=== PATIENT | male | born 1950 | race Caucasian/White ===

== ENCOUNTER 2017-10-27 17:54 | Emergency (ER) | payer OTHER, MEDICARE, SELFPAY ==
[2017-10-27 17:56] VITALS: BP 150/83; PULSE 79; RESP 18; TEMP 36.5; O2SAT 97; BMI 25.4
[2017-10-27] MEDS: HYDROcodone Bitartrate/Apap 5/325 Tablet PO (18:12)
--- NOTE | 2017-10-27 18:15 | ED.DCSUM_ITS ---
- ER Visit Summary Date of Service: 10/27/17 Chief Complaint: Left rib pain History of Present Illness: The patient is a 67 M who slipped on some ice this morning and fell onto his left side. He did not hit his head or have LOC. He has pain in the left ribs. Is worse with movement and deep breathing. He took nothing for it at home. He has a history of coronary disease and 2 heart attacks in the past. Physical Examination: Vital signs reviewed. HEENT exam unremarkable. Heart is regular rate and rhythm without murmurs. Lungs are clear to auscultation. He does have left lower chest wall tenderness to palpation. abdomen is soft and nontender. Extremities reveal no edema. Skin exam normal. Neurologic exam normal. Test Results: Left rib x-ray reveals no fractures Emergency Department Course and Treatment: Patient was given Dupont Treatment Plan: Patient will be discharged with a short course of Dupont. He was counseled on taking deep breaths at home. He will ice the area. Follow-up with PCP Disposition: Discharge Impression: Left rib contusion This note was generated with [employer] dictation software. It may contain incorrect words, spelling, and punctuation that were not noted in review of the chart prior to signing ED Disposition - Plan for ED Patient: Chief Complaint: Fall Referrals: Abdulkadir Ladd MD [STAFF PHYSICIAN] -
--- NOTE | 2017-10-27 18:18 | RAD_ITS ---
STUDY: X-RAY - UNILATERAL RIBS ( LEFT ) WITH CHEST REASON FOR EXAM: Male, 67 years old. Trauma TECHNIQUE - RIBS: 4 view(s) of the ribs. TECHNIQUE - CHEST: Single PA view of the chest. COMPARISON: None. FINDINGS - RIBS: Normal visualized ribs without a demonstrated fracture. FINDINGS - CHEST: The lungs are clear and expanded. There is no demonstrated pleural abnormality. Normal size heart. Normal mediastinum and silke. Normal visualized pulmonary arteries. There are calcified plaques of the aortic arch. There are diffuse degenerative changes of the visualized thoracic spine. Normal visualized ribs, clavicles, and shoulders. There is no demonstrated abnormality of the visualized soft tissue structures of the upper abdomen. RAD/Ribs Uni Min 3V w/PA Chest IMPRESSION: RIBS: Normal x-ray examination of the ribs. CHEST: Calcified plaques of the aortic arch. Degenerative changes of the thoracic spine. There is no evidence of hemo or pneumothorax or pulmonary contusion. Electronically Signed: Juan Jose Nunez MD at 19:17 EST , Service support ,
--- NOTE | 2017-10-27 19:25 | ED.DEP ---
ED Disposition - Plan for ED Patient: Disposition: Home or Assisted Living Chief Complaint: Fall Instructions: ED Mechanical Fall Prescriptions: Hydrocodone Bitart/Apap 5-325 [[place] 5/325] 1 - 2 tab PO Q6H PRN PRN 2 Days #8 tab PRN Reason: Pain Referrals: Abdulkadir Ladd MD [STAFF PHYSICIAN] -
== END 2017-10-27 19:45 | disposition home or self-care (01) ==
PROVIDERS: Emergency Provider Emergency Medicine
DX: S20.212A Contusion of left front wall of thorax, initial encounter (principal); W00.0XXA Fall on same level due to ice and snow, initial encounter; Y93.9 Activity, unspecified; Y92.9 Unspecified place or not applicable; I25.2 Old myocardial infarction; I10 Essential (primary) hypertension; I25.10 Atherosclerotic heart disease of native coronary artery without angina pectoris; Z79.82 Long term (current) use of aspirin; Z79.02 Long term (current) use of antithrombotics/antiplatelets; Z79.899 Other long term (current) drug therapy
CPT/HCPCS: 71101; 99283

== ENCOUNTER 2018-06-30 18:12 | Emergency (ER) | payer MEDICARE, SELFPAY ==
[2018-06-30 18:14] VITALS: BP 158/97; PULSE 124; RESP 17; TEMP 36.6; O2SAT 95; BMI 25.8
[2018-06-30 18:48] VITALS: BP 145/90; PULSE 99; RESP 16; O2SAT 98
--- NOTE | 2018-06-30 20:26 | ED.VISSUMM ---
- ER Visit Summary Date of Service: 06/30/18 Chief Complaint: No bowel movement History of Present Illness: The patient is a 67 M patient has been constipated for several days. He has had the urge to have a bowel movement for about 21 hours but is unable to pass anything. Denies any bleeding. He had this in the past but it resolved on its own. Denies abdominal pain. No fevers. No urinary symptoms. No change in his medications or diet. Does not take opioids. Physical Examination: Afebrile and vital signs unremarkable except for heart rate of 124. The patient is pacing about the room and appears uncomfortable. His abdomen is soft and nontender. Back is nontender. Skin appears normal. Rectal exam showed no blood but he does have a large fecal impaction. Test Results: None performed Emergency Department Course and Treatment: I attempted a digital disimpaction. I removed several pieces of hard stool totaling about the size of a golf ball. He subsequently received an enema. He passed a large bowel movement and had resolution of his symptoms. He was started on MiraLAX and will be discharged to follow-up with his primary doctor. Treatment Plan: As above Disposition: Discharged Impression: 1. Fecal impaction This note was generated with [employer] dictation software. It may contain incorrect words, spelling, and punctuation that were not noted in review of the chart prior to signing ED Disposition - Plan for ED Patient: Chief Complaint: Constipation [facility] [Primary Care Provider] -
--- NOTE | 2018-06-30 20:28 | ED.DEP ---
ED Disposition - Plan for ED Patient: Chief Complaint: Constipation Instructions: ED Impaction Fecal Treated Prescriptions: Polyethylene Glycol 3350 [Miralax] 17 gm PO DAILY 30 Days #30 packet [facility] [Primary Care Provider] -
[2018-06-30 20:38] VITALS: BP 121/85; PULSE 100; RESP 17
== END 2018-06-30 20:43 | disposition home or self-care (01) ==
PROVIDERS: Emergency Provider Emergency Medicine
DX: K59.00 Constipation, unspecified (principal); I10 Essential (primary) hypertension; E78.00 Pure hypercholesterolemia, unspecified; Z79.82 Long term (current) use of aspirin; Z79.02 Long term (current) use of antithrombotics/antiplatelets; Z79.899 Other long term (current) drug therapy
CPT/HCPCS: 99284

== ENCOUNTER 2022-08-08 01:54 | Emergency (ER) | payer OTHER, SELFPAY ==
[2022-08-08] VITALS (7 sets, daily range): BP systolic 138–182; BP diastolic 85–104; PULSE 85–96; RESP 14–18; TEMP 36.5–37; O2SAT 96–100; BMI 24.0
--- NOTE | 2022-08-08 02:19 | ED.VIS.GI ---
HPI HPI - GI History of Present Illness Chief Complaint: Constipation Informant: patient Abdominal Pain/Flank Pain Onset: Hours Context: Gradual Onset Timing: Continuous Quality: Aching Location: - (Suprapubic/lower abdomen) Current Severity: Mild Maximum Severity: Mild Worsened by: Nothing Relieved by: Nothing Nausea/Vomiting/Emesis GI Symptom: Negative for Nausea or Vomiting Diarrhea/Melena/Hematochezia GI Symptom: Negative for Diarrhea, Melena or Hematochezia Narrative Narrative: Patient states for the last several hours he has been constipated, he feels like he has a large ball of solid stool that he is unable to pass and requesting assistance. He has some mild lower abdominal discomfort that started after this, no nausea or vomiting. No history of any abdominal surgeries. Has had this happen before. States he feels he is dependent on MiraLAX because of chronic constipation but he ran out 4 days ago. [facility] Medical History Diabetes Hyperlipidemia Hypertension Myocardial infarct Home Medications Adderall 10 mg Tablet 10 mg PO TID 10/27/17 [History Last Taken Unknown] aspirin 325 mg tablet,delayed release 325 mg PO DAILY 10/27/17 [History Last Taken Unknown] clopidogrel 75 mg tablet 75 mg PO DAILY 10/27/17 [History Last Taken Unknown] hydrocodone-acetaminophen 5-325mg 5mg-325mg 1 - 2 tab PO Q6H PRN PRN Pain 2 days #8 tabs 10/27/17 [Rx Last Taken Unknown] metoprolol tartrate 25 mg tablet 12.5 mg PO BID 10/27/17 [History Last Taken Unknown] simvastatin 80 mg tablet (Zocor) 80 mg PO QHS 10/27/17 [History Last Taken Unknown] venlafaxine 75 mg tablet 75 mg PO BID 10/27/17 [History Last Taken Unknown] Allergy/AdvReac Type Severity Reaction Status Date / Time No Known Allergies Allergy Verified 06/30/18 18:13 Surgical History (Updated 08/08/22 @ 02:00 by Dudley Shetty) History of coronary artery stent placement Social History Smoking Status: Current some day smoker tobacco type: cigars ROS ROS ED Constitutional Constitutional ED: Denies chills or fever(s) Eyes Eyes: Denies change in vision or diplopia ENT ENT ED: Denies rhinorrhea or sore throat Cardiovascular Cardiovascular: Denies chest pain or palpitations Respiratory/Chest Respiratory/Chest: Denies cough or dyspnea Gastrointestinal Gastrointestinal: Reports abdominal pain and constipation; Denies diarrhea, nausea or vomiting Genitourinary Genitourinary ED: Denies dysuria or hematuria Musculoskeletal Musculoskeletal: Denies back pain or neck pain Integumentary Denies abscess or rash Neurologic Neurologic: Denies headache(s), paresthesias or weakness Psychiatric Psychiatric: Denies anxiety or suicidal thoughts EXAM Physical Exam Const Vital Signs: 08/08/22 01:55 08/08/22 05:54 08/08/22 06:26 Temperature 97.7 F L 98.6 F Temperature Source Temporal Pulse Rate 96 89 Pulse Rate [1 (Initial Baseline)] Pulse Rate [2] Respiratory Rate 18 15 Respiratory Rate [1 (Initial Baseline)] Respiratory Rate [2] Blood Pressure 171/89 H 138/104 H Blood Pressure [1 (Initial Baseline)] Blood Pressure [2] Blood Pressure Mean 116 Pulse Ox 96 98 Oxygen Delivery Method Room Air Room Air Room Air Oxygen Delivery Method [1 (Initial Baseline)] Oxygen Delivery Method [2] Oxygen Flow Rate (L/min) Oxygen Flow Rate (L/min) [2] 08/08/22 06:24 08/08/22 06:27 08/08/22 06:30 Temperature Temperature Source Pulse Rate Pulse Rate [1 (Initial Baseline)] Pulse Rate [2] Respiratory Rate Respiratory Rate [1 (Initial Baseline)] Respiratory Rate [2] Blood Pressure Blood Pressure [1 (Initial Baseline)] Blood Pressure [2] Blood Pressure Mean Pulse Ox Oxygen Delivery Method Room Air Nasal Cannula Room Air Oxygen Delivery Method [1 (Initial Baseline)] Oxygen Delivery Method [2] Oxygen Flow Rate (L/min) 2 Oxygen Flow Rate (L/min) [2] 08/08/22 06:21 08/08/22 06:39 Temperature Temperature Source Pulse Rate 85 Pulse Rate [1 (Initial Baseline)] 89 Pulse Rate [2] 93 Respiratory Rate 16 Respiratory Rate [1 (Initial Baseline)] 15 Respiratory Rate [2] 14 Blood Pressure 149/86 H Blood Pressure [1 (Initial Baseline)] 138/104 H Blood Pressure [2] 182/93 H Blood Pressure Mean 107 Pulse Ox 100 Oxygen Delivery Method Room Air Oxygen Delivery Method [1 (Initial Baseline)] Room Air Oxygen Delivery Method [2] Room Air Oxygen Flow Rate (L/min) Oxygen Flow Rate (L/min) [2] 2 Positive well nourished and well developed General Appearance ED: well developed and NAD HEENT Reports moist mucous membranes normocephalic and atraumatic Eyes PERRL and EOMs intact bilaterally Neck full ROM and supple Resp normal respiratory effort and clear to auscultation bilaterally Cardio regular rate, regular rhythm and no murmurs GI non-tender and non-distended GI Narrative: On rectal, there is no perianal abnormality or tenderness. There is no melena or bleeding. Rectal exam is uncomfortable due to a large solid stool ball, which I was able to sweep around but not manually removed. Auscultation: normoactive bowel sounds Palpation: soft Back/Spine no CVA tenderness General Back: other FROM Extremity normal to inspection General Extremety ED: Negative for edema, pulses abnormal or tenderness General Extremity: Negative for edema or pulses abnormal Neuro oriented x3, CN's II-XII intact bilaterally and no sensory deficits noted Sensorium / Orientation: awake and alert Motor Exam: strength 5/5 throughout Skin no rashes or lesions noted and no wounds MDM MDM MDM Narrative Medical decision making narrative: Rectal exam, patient has large fecal impaction that feels firm but I could sweep my finger around it to loosen it. Unable to remove any because the patient did not tolerate this well and withdrew. He tried to have a bowel movement but was unable to pass it. Therefore we tried a fleets enema, mostly because I did not feel there was a lot of room for a large amount of fluid there, however this did not allow the patient to be able to pass the impaction either so then we tried a soapsuds enema. Also did not allow the patient to pass it. Repeated rectal exam, is not tolerating well and asking for procedural sedation. I discussed with him at length that typically we do not sedate people for rectal exam under anesthesia for this reason because of the risk-benefit profile. He understands the risk and wants us to provide procedural sedation for manual disimpaction so that he feels better. We discussed alternatives such as GoLytely, MiraLAX, other laxative options, and he declines those at this time. See the procedure note. He was sedated briefly with etomidate 10 mg, I manually disimpacted him to the best of my ability without causing damage, he awoke feeling better and in no pain, he had no bleeding, and he had no complications with any of this. He will get more MiraLAX and he is comfortable being discharged home. He was monitored until he was fully recovered. Procedures Procedural Sedation 1 (Initial Baseline): Consent Signed: Yes Any Problems With Anesthesia: No You/Your family experience fever (hyperthermia) w/anesthesia: No Sedation medication: Etomidate Dose: 10 Route: IV Mallampati Score: Class II ASA Classification: II Comment:: Patient on monitor with IV fluids, oxygen per nasal cannula, and end-tidal CO2 monitoring throughout procedure. Adequate sedation obtained, tolerated well with no complications and recovered uneventfully. No telemetry events or hypoxemia. Other Procedures Procedure(s): Rectal exam/manual disimpaction under anesthesia: After sedated as above, manually removed as much solid stool as I felt would be productive, which was basically using several fingers 3 different times under anesthesia. No bleeding. All stool brown, no complications. Discharge Plan Triage Chief Complaint: Constipation ED Provider: Hansel Ware Dx/Rx/DC Orders Clinical Impression: Constipation, Fecal impaction in rectum Instructions: ED Fecal Impaction, Treated Prescriptions: No Action Adderall 10 mg Tablet 10 mg PO TID venlafaxine 75 MG tablet 75 mg PO BID clopidogrel 75 MG tablet 75 mg PO DAILY simvastatin [Zocor] 80 MG tablet 80 mg PO QHS aspirin 325 MG Tablet.Dr 325 mg PO DAILY metoprolol tartrate 25 MG tablet 12.5 mg PO BID hydrocodone-acetaminophen 1 TABLET tablet 1 - 2 tab PO Q6H PRN PRN (Reason: Pain) 2 Days Qty: 8 0RF [facility] [Primary Care Provider] - As Needed Disposition Disposition: Home, Self Care
[2022-08-08] MEDS: Fleet Enema 1 ML RC (03:07)
--- NOTE | 2022-08-08 05:41 | ED.RN ---
Pt retained entire bottle of fleet enema after x3 attempts, unable to hold fluid. Pt denies any large amount of feces. Pt unable to retain large amounts of soap suds enema, had a total of 1000 cc of fluid after x2 attempts.
[2022-08-08] MEDS: Etomidate 20 MG/10 ML Vial 10 MG IV (06:38)
--- NOTE | 2022-08-08 06:45 | ED.RN ---
Pt is A&O x3 @ 9633. Alert and talking post sedation.
== END 2022-08-08 07:10 | disposition home or self-care (01) ==
LOC: ED 02:45
PROVIDERS: Emergency Provider Emergency Medicine; Visit Provider Emergency Medicine
DX: K56.41 Fecal impaction (principal); E11.9 Type 2 diabetes mellitus without complications; E78.5 Hyperlipidemia, unspecified; I10 Essential (primary) hypertension; F17.290 Nicotine dependence, other tobacco product, uncomplicated
CPT/HCPCS: 45915; 96374; 99285; J7030; A4216

== ENCOUNTER 2023-05-04 06:31 | Emergency (ER) | payer OTHER, SELFPAY ==
[2023-05-04 06:33] VITALS: BP 190/96; PULSE 71; RESP 18; TEMP 35.7; O2SAT 99; BMI 23.6
--- NOTE | 2023-05-04 06:41 | CT_ITS ---
STUDY: CT ABDOMEN AND PELVIS WITH CONTRAST REASON FOR EXAM: Male, 72 years old patient with left lower quadrant ( LLQ) abdominal pain. RADIATION DOSAGE (If Supplied By Facility): CTDIvol = ( 14.87 ) mGy, DLP = ( 725.23 ) mGycm TECHNIQUE: Transaxial images were obtained from the dome of the diaphragm to the symphysis pubis without oral contrast. 100 ml of IV Isovue-370 was administered. Sagittal and coronal images were reconstructed. Individualized dose optimization techniques were used for this CT. COMPARISON: Prior comparison studies are not available for review at this time. FINDINGS: The visualized lung bases are unremarkable. The visualized portions of the heart are within normal limits. There are coronary artery calcifications. Normal liver. Normal gallbladder and extrahepatic biliary system. Normal spleen. Normal pancreas. Normal bilateral adrenal glands. Normal right kidney. Mild left-sided hydronephrosis without obvious hydroureter or radiopaque ureteral calculus. Normal visualized stomach. There is no obvious dilated bowel, ascites or pneumoperitoneum. Small bowel has a grossly normal appearance. There is stool visible throughout the colon with scattered diverticula. There is nonspecific thickening of the joseph of the distal sigmoid colon and rectum suggesting possible infectious or inflammatory proctitis. There is non-visualization of the appendix. There is diffuse atherosclerotic calcification of the abdominal aorta, without a demonstrated aneurysm. Normal inferior vena cava. Normal retroperitoneum. Normal urinary bladder. There is enlargement of the prostate gland. Normal abdominal wall. There are diffuse degenerative changes of the visualized spine. CT/Abdomen/Pelvis W IV Cont ONLY IMPRESSION: 1. Mild left-sided hydronephrosis may be secondary to the enlargement of the prostate versus sequela of previous obstructive uropathy.. No ureteral calculus is visualized. 2. Questionable acute infectious or inflammatory proctitis. Electronically Signed: Roma Ladd MD at 7:53 EDT ,
--- NOTE | 2023-05-04 06:41 | ED.VIS.GI ---
HPI HPI - GI History of Present Illness Chief Complaint: Flank Pain Informant: patient Abdominal Pain/Flank Pain Onset: Hours Context: Gradual Onset Timing: Continuous Quality: Aching Location: LLQ and Left Flank Current Severity: Severe Maximum Severity: Severe Worsened by: Nothing Relieved by: Nothing Nausea/Vomiting/Emesis GI Symptom: Negative for Nausea or Vomiting Diarrhea/Melena/Hematochezia GI Symptom: Positive for Diarrhea; Negative for Melena or Hematochezia Onset: Weeks (Several, off-and-on) Associated Symptoms Associated Symptoms: Negative for Dysuria, Frequency, Hematuria or Urgency Narrative Narrative: Patient has been having right-sided abdominal pain off and on for several weeks, but now he states all night it has been in the left side which is new. No history of any abdominal surgeries. He has had some diarrhea off-and-on in the last several weeks but no blood or melena. Pain radiates into his left lower back. No urinary symptoms, fevers, nausea, or vomiting. Food has not necessarily seemed to make any difference. [facility] Medical History Diabetes Hyperlipidemia Hypertension Myocardial infarct Home Medications aspirin 325 mg tablet,delayed release 81 mg PO DAILY 10/27/17 [History Last Taken Unknown] metoprolol tartrate 25 mg tablet 25 mg PO BID 10/27/17 [History Last Taken Unknown] simvastatin 80 mg tablet (Zocor) 40 mg PO QHS 10/27/17 [History Last Taken Unknown] venlafaxine 75 mg tablet 75 mg PO BID 10/27/17 [History Last Taken Unknown] ciprofloxacin HCl 500 mg tablet 500 mg PO BID #14 TABLETS 05/04/23 [Rx Last Taken Unknown] dulaglutide 0.75 mg/0.5 mL subcutaneous pen injector 0.75 mg subcut QWEEK 05/04/23 [History Last Taken Unknown] glipizide 5 mg tablet 5 mg PO DAILY 05/04/23 [History Last Taken Unknown] metformin 1,000 mg tablet 1,000 mg PO BID 05/04/23 [History Last Taken Unknown] oxycodone-acetaminophen 5 mg-325 mg tablet 1 tab PO Q4H PRN Pain 3 days #18 TABLETS 05/04/23 [Rx Last Taken Unknown] Allergy/AdvReac Type Severity Reaction Status Date / Time No Known Allergies Allergy Verified 05/04/23 06:37 Surgical History History of coronary artery stent placement Social History Smoking Status: Current some day smoker tobacco type: cigars ROS ROS ED Constitutional Constitutional ED: Denies chills or fever(s) Eyes Eyes: Denies change in vision or diplopia ENT ENT ED: Denies rhinorrhea or sore throat Cardiovascular Cardiovascular: Denies chest pain or palpitations Respiratory/Chest Respiratory/Chest: Denies cough or dyspnea Gastrointestinal Gastrointestinal: Reports abdominal pain and diarrhea; Denies melena, nausea or vomiting Genitourinary Genitourinary ED: Denies dysuria or hematuria Musculoskeletal Musculoskeletal: Reports back pain; Denies neck pain Integumentary Denies abscess or rash Neurologic Neurologic: Denies headache(s), paresthesias or weakness Psychiatric Psychiatric: Denies anxiety or suicidal thoughts EXAM Physical Exam Const Vital Signs: 05/04/23 06:33 Temperature 96.3 F L Temperature Source Temporal Pulse Rate 71 Respiratory Rate 18 Blood Pressure 190/96 H Blood Pressure Mean 127 Pulse Ox 99 Oxygen Delivery Method Room Air Positive well nourished and well developed General Appearance ED: well developed and NAD HEENT Reports moist mucous membranes normocephalic and atraumatic Eyes PERRL and EOMs intact bilaterally Neck full ROM and supple Resp normal respiratory effort and clear to auscultation bilaterally Cardio regular rate, regular rhythm and no murmurs Rate: Negative for tachycardic GI non-distended GI Narrative: Patient has moderate-severe tenderness in the left lower quadrant without guarding or rebound, no pulsatile mass, no other areas of abdominal tenderness. No Lares sign. Auscultation: normoactive bowel sounds Palpation: soft Back/Spine no CVA tenderness General Back: other FROM Extremity normal to inspection General Extremety ED: Negative for edema, pulses abnormal or tenderness General Extremity: Negative for edema or pulses abnormal Neuro oriented x3, CN's II-XII intact bilaterally and no sensory deficits noted Sensorium / Orientation: awake and alert Motor Exam: strength 5/5 throughout Skin no rashes or lesions noted and no wounds MDM MDM MDM Narrative Medical decision making narrative: Differential Lynette fluids urolithiasis, diverticulitis, also other unusual intestinal or genitourinary intra-abdominal issues. CT warranted, in addition to labs, pain medication, IV fluids and nausea medicine prophylactically. He required some other pain medication so I gave him Toradol and then fentanyl after that which helped more. His labs are normal, urine shows signs of infection so I sent this for culture given positive nitrite and some pyuria. I reviewed the CT images and report which I initially did not agree with, I see a small left ureteral stone with mild hydroureter and hydronephrosis, no signs of diverticulitis. Radiology interpreted this with left-sided hydronephrosis but no ureteral calculus visualized, I igor her attention to image #66 of the axial sequence, and she agrees this is a stone, and added an addendum. He was treated with a dose of IV Rocephin and will be placed on Cipro, he is feeling better, clinically and hemodynamically stable, not septic, and comfortable with following up as an outpatient with a prescription for pain medications and antibiotic. Lab Data Attestation: I reviewed the patient's lab results. Labs: Laboratory Results - last 24 hr 05/04/23 05/04/23 06:50 07:03 WBC 8.0 RBC 5.14 Hgb 15.3 Hct 44.0 MCV 85.6 MCH 29.8 MCHC 34.8 RDW Std Deviation 39.0 RDW Coeff of Keshia 12.6 Plt Count 250 MPV 8.9 Immature Gran % (Auto) 0.300 Neut % (Auto) 56.1 Lymph % (Auto) 29.8 [place] % (Auto) 8.4 Eos % (Auto) 4.6 Baso % (Auto) 0.8 Absolute Neuts (auto) 4.5 Absolute Lymphs (auto) 2.38 Nucleated RBC % 0 Sodium 137 Potassium 3.9 Chloride 103 Carbon Dioxide 24.0 Anion Gap 10 BUN 18 Creatinine 1.15 Estim Creat Clear Calc 58.06 Est GFR (MDRD) Af Amer 80 Est GFR (MDRD) Non-Af 66 BUN/Creatinine Ratio 15.7 Glucose 182 H Calcium 9.8 Urine Color Yellow Urine Clarity Cloudy Urine pH 5.0 Ur Specific [place] 1.025 Urine Protein 100 H Urine Glucose (UA) 100 H Urine Ketones 15 H Urine Occult Blood 250 H Urine Nitrite Positive H Urine Bilirubin 1 H Urine Urobilinogen 4 H Ur Leukocyte Esterase 100 H Urine RBC > 100 SEEN Urine WBC 10-25 SEEN Ur Squamous Epith Cells 0 SEEN Urine Bacteria 3+ Urine Mucus 0 SEEN Radiography Diagnostic Testing: Clinical Impression(s) from Imaging Studies Abdomen/Pelvis CT 05/04/23 06:41 IMPRESSION: 1. Mild left-sided hydronephrosis may be secondary to the enlargement of the prostate versus sequela of previous obstructive uropathy.. No ureteral calculus is visualized. 2. Questionable acute infectious or inflammatory proctitis. Electronically Signed: Roma Ladd MD at 7:53 EDT Reading Location ID and State: [facility] / [place] , Service support , Management Discussion w/another healthcare provider: Radiologist Discharge Plan Triage Chief Complaint: Flank Pain ED Provider: Hansel Ware Dx/Rx/DC Orders Clinical Impression: Ureteral colic, Urolithiasis, Acute UTI Instructions: ED Kidney Stone w/ Colic Prescriptions: New ciprofloxacin HCl [ciprofloxacin HCl] 500 mg tablet 500 mg PO BID Qty: 14 0RF oxycodone-acetaminophen [oxycodone-acetaminophen] 5-325 mg tablet 1 tab PO Q4H PRN (Reason: Pain) 3 Days Qty: 18 0RF No Action venlafaxine 75 MG tablet 75 mg PO BID simvastatin [Zocor] 80 MG tablet 40 mg PO QHS aspirin 325 MG tablet,delayed release (DR/EC) 81 mg PO DAILY metoprolol tartrate 25 MG tablet 25 mg PO BID metformin 1,000 mg tablet 1,000 mg PO BID glipizide 5 mg tablet 5 mg PO DAILY dulaglutide 0.75 mg/0.5 mL pen injector 0.75 mg subcut QWEEK [facility] Provider[facility] Referrals: Yaya Smith MD [Med Staff - Active Staff] - 1 Week if not improving [facility] [Primary Care Provider] - Disposition Disposition: Home, Self Care
[2023-05-04 07:02] LABS: Absolute Lymphocyte Count 2.38 X10^3/uL (0.83-4.51); Absolute Neutrophil Count 4.5 X10^3/uL (2.0-7.7); Basophil# 0.06 X10^3/uL; Basophil% 0.8 % (0-1); Eosinophil# 0.37 X10^3/uL; Eosinophils% 4.6 % (0-5); Hemoglobin 15.3 g/dL (13.0-16.5); Lymphocyte # 2.38 X10^3/ul (0.83-4.51); Lymphocyte % 29.8 % (19-41); Mean Corp Hgb Conc 34.8 g/dL (32-36); Mean Corpuscular Hgb 29.8 pg (27.0-32.0); Mean Corpuscular Volume 85.6 fL (80-94); Mean Platelet Vol. 8.9 fl (6.2-12.0); Monocyte# 0.67 X10^3/uL; Monocyte% 8.4 % (0-10); NRBC Flagged by Analyzer 0 % (0-5); Neutrophil % 56.1 % (47-70); Platelet Count 250 K/mm3 (150-450); RBC Distribution Width CV 12.6 % (11.6-14.6); Red Blood Count 5.14 M/mm3 (4.6-6.2)
[2023-05-04] MEDS: Morphine 4 MG/ML Syringe IV (07:03)
[2023-05-04] MEDS: 0.9% Normal Saline (1000mL) 1,000 ML 125 ML IV (07:03)
[2023-05-04] MEDS: Ondansetron 4 MG/2 ML Vial IV (07:03)
[2023-05-04 07:07] LABS: Mucous, Urine 0 SEEN /hpf (<or=2+); Squamous Epithelial Cells - UA 0 SEEN /hpf (0-5)
[2023-05-04 07:16] LABS: Anion Gap 10 (5-15); BUN 18 mg/dL (7-18); BUN/Creat Ratio 15.7 RATIO (10-20); Calcium,Total 9.8 mg/dL (8.5-10.1); Chloride 103 mmol/L (98-107); Creatinine, Serum 1.15 mg/dL (0.70-1.30); EST Glomerular Filtration Rate 66 mL/min (>60); Est Glom Filt Rate - Afr Amer 80 mL/min (>60); Estimated Creatinine Clearance 58.06 ml/min; Glucose 182 mg/dL (74-106); Potassium 3.9 mmol/L (3.5-5.1); Sodium Level 137 mmol/L (136-145)
[2023-05-04 07:19] LABS: Color, Urine Yellow (Yellow); Glucose, Dipstick 100 mg/dl (Normal); Ketone-Dipstick 15 mg/dl (Negative); Leukocyte Esterase-Dipstick 100 /ul (Negative); Nitrite-Dipstick Positive (Negative); Occult Blood-Urine 250 /ul (Negative); Protein-Dipstick 100 mg/dl (Negative); Specific Gravity, Urine 1.025 (1.002-1.030); Urine Clarity Cloudy (Clear); Urine Urobilinogen 4 mg/dl (Normal)
[2023-05-04 07:24] LABS: Urine Bilirubin Dipstick 1 mg/dL (Negative)
[2023-05-04 07:25] LABS: Bacteria 3+ /hpf (None Seen); Red Blood Cells-Urine > 100 SEEN /hpf (0-5); White Blood Cells 10-25 SEEN /hpf (0-5)
[2023-05-04] MEDS: Ketorolac 15 MG/ML Vial IV (07:43)
[2023-05-04] MEDS: fentaNYL 100 MCG/2 ML Ampul 50 MCG IV (07:55)
[2023-05-04] MEDS: Ceftriaxone 1 GM/50 ML BAG IV (07:56)
[2023-05-04 09:21] VITALS: BP 118/62; PULSE 74; RESP 16; O2SAT 99
== END 2023-05-04 09:24 | disposition home or self-care (01) ==
PROVIDERS: Emergency Provider Emergency Medicine; Visit Provider Emergency Medicine
DX: N13.6 Pyonephrosis (principal); E11.9 Type 2 diabetes mellitus without complications; N23 Unspecified renal colic; I10 Essential (primary) hypertension; E78.5 Hyperlipidemia, unspecified; I25.2 Old myocardial infarction; F17.290 Nicotine dependence, other tobacco product, uncomplicated; Z95.5 Presence of coronary angioplasty implant and graft; Z79.82 Long term (current) use of aspirin; Z79.84 Long term (current) use of oral hypoglycemic drugs; Z79.899 Other long term (current) drug therapy
CPT/HCPCS: 74177; 80048; 81001; 85025; 87086; 87088; 96361; 96365; 96366; 96375; 99284; J7030; Q9967; A4216; J2405

== ENCOUNTER 2025-04-18 08:50 | Inpatient (IN) | payer OTHER, SELFPAY ==
[2025-04-18 08:51] VITALS: BP 99/77; PULSE 109; RESP 14; TEMP 36.4; O2SAT 100; BMI 24.1
--- OUTSIDE RECORDS SUMMARY | 2025-04-18 08:54 | XMS RPT_ITS | CCD ---
Author Organization [facility] Care Team Providers Care Insurance Customer Service Specialist Name Role Phone Dr. Hansel Ware Attending [facility], [place] Primary Care [facility], [facility] Primary Care Provider GERTRUDIS AMBROSIO Referring Unavailable GERTRUDIS AMBROSIO Attending Unavailable GERTRUDIS AMBROSIO Attending Unavailable Medications Current Medications Medication Drug Class(es) Dates Sig (Normalized) Sig (Original) simvastatin 80 mg oral tablet (2 sources) HMG-CoA Reductase Inhibitor Start: 10-27-2017 Simvastatin (Zocor) 80 MG tablet Active 40 MG PO AT BEDTIME October 27, 2017 1:00am Start: 10-27-2017 take 1 tablet by charlie th at bedtime Simvastatin (Zocor) 80 MG tablet Active 80 MG PO AT BEDTIME October 27, 2017 12:00am Completed/Discontinued Medications Medication Drug Class(es) Dates Sig (Normalized) Sig (Original) acetaminophen 325 mg / HYDROcodone bitartrate 5 mg oral tablet (2 sources) Opioid Agonist Start: 10-27-2017 End: 05-04-2023 take 1 tablet by mouth every six hours as needed Hydrocodone-Acetami nophen Discontinued 1 - 2 TABLET PO EVERY 6 HOURS NEEDED 8 2 October 27, 2017 8:25pm May 04, 2023 6:39am acetaminophen 325 mg / oxyCODONE hydrochloride 5 mg oral tablet (4 sources) Opioid Agonist Start: 05-04-2023 oxyCODONE-acetamino phen (PERCOCET) 5-325 mg tablet Take by mouth. 0 05/04/2023 Active Start: 05-04-2023 take 1 tablet by charlie th every four hours Oxycodone-Acetaminophen Active 1 TABLET PO Q4H 18 3 May 04, 2023 Comment on above: Take by mouth. alogliptin 25 mg oral tablet (3 sources) take 1 tablet by mouth once daily alogliptin (NESINA) 25 mg tab Take 25 mg by mouth once daily. 0 Active Comment on above: Take 25 mg by mouth once daily. Amphetamine / Dextroamphetamine (2 sources) Central Nervous System Stimulant Start: 10-28-19 18 End: 05-04-20 take 1 tablet by mouth three times daily Adderall 10 mg Tablet Discontinued 10 MG PO THREE TIMES A DAY October 27, 2017 1:00am May 04, 2023 6:37am Start: 10-27-2017 take 1 tablet by charlie three times daily Adderall 10 mg Tablet Active 10 MG PO THREE TIMES A DAY October 27, 2017 12:00am ascorbic acid 4700 mg / polyethylene glycol 3350 058528 mg / potassium chloride 1015 mg / sodium ascorbate 5900 mg / sodium chloride 2690 mg / sodium sulfate 7500 mg powder for oral solution (3 sources) Osmotic Laxative, Vitamin C Start: 07-26-2023 PEG 3350-Electrolyte -Vit C (MOVIPREP) 100-7.5-2.691 gram Start: 07-26-2023 PEG 3350-Elect rolyte-Vit C (MOVIPREP) 100-7.5-2.691 gram TAKE BEFORE PROCEDURE BY MOUTH ONE TIME DIRECTED ON GI BOWEL PREP INSTRUCTION SHEET 0 07/26/2023 Active Comment on above: TAKE BEFORE PROCEDUR E BY MOUTH ONE TIME DIRECTED ON GI BOWEL PREP INSTRUCTION SHEET Aspirin (5 sources) Platelet Aggregation Inhibitor, Nonsteroidal Anti-inflammatory Drug Start: 07-26-2023 aspirin 81 mg cap 81 mg. 0 07/26/2023 Active Start: 10-27-2017 take 81 mg by mouth once daily Aspirin Active 81 MG PO DAILY October 27, 2017 1:00am Start: 10-27-2017 take 325 mg by mouth once ashtyn y Aspirin Active 325 MG PO DAILY October 27, 2017 12:00am Comment on above: 81 mg. ciprofloxacin 500 mg oral tablet (4 sources) Quinolone Antimicrobial Start: 05-04-20 ciprofloxacin HCl (CIPRO) 500 mg tablet Take by mouth. 0 05/04/2023 Active Comment on above: Take by mouth. clopidogrel 75 mg oral tablet (5 sources) P2Y12 Platelet Inhibitor Start: 10-28-19 18 End: 05-04-20 take 75 mg by mouth once daily Clopidogrel Discontinued 75 MG PO DAILY October 27, 2017 1:00am May 04, 2023 6:41am Comment on above: Take 75 mg by mouth once daily. 0.5 ml dulaglutide 1.5 mg/ml auto-injector (4 sources) GLP-1 Receptor Agonist Start: 05-04-20 dulaglutide (TRULICITY) 0.75 mg/0.5 mL pen injector INJECT CONTENT OF 1 PEN SUBCUTANEOUSLY EVERY WEEK : KEEP REFRIGERATED, HOWEVER, MAY BE KEPT AT ROOM TEMPERATURE FOR UP TO 14 DAYS 0 05/04/2023 Active Start: 05-04-2023 Dulaglutide Ac tive 0.75 MG SC EVERY WEEK May 04, 2023 12:00am Comment on above: INJECT CONTENT OF 1 PEN SUBCUTANEOUSLY EVERY WEEK : KEEP REFRIGERATED, HOWEVER, MAY BE KEPT AT ROOM TEMPERATURE FOR UP TO 14 DAYS glipiZIDE 5 mg oral tablet (4 sources) Sulfonylurea Start: take 1 tablet by mouth once daily before breakfast glipiZIDE (GLUCOTROL) 5 mg tablet Take 1 tablet by mouth daily before breakfast. 0 05/04/2023 Active Comment on above: Take 1 tablet by charlie th daily before breakfast. glucose 4000 mg chewable tablet (3 sources) Start: glucose 4 gram chewable tablet 16 g. 0 10/18/2022 Active Comment on above: 16 g. insulin glargine-yfgn (SEMGLEE) 100 unit/mL (3 mL) insulin pen (3 sources) Start: insulin glargine-yfgn (SEMGLEE) 100 unit/mL (3 mL) insulin pen INJECT 15 UNITS SUBCUTANEOUSLY AT BEDTIME FOR DIABETES (DISCARD PEN 28 DAYS AFTER FIRST USE) DOSE CHANGE 0 07/26/2023 Active Comment on above: INJECT 15 UNITS SUBC UTANEOUSLY AT BEDTIME FOR DIABETES (DISCARD PEN 28 DAYS AFTER FIRST USE) DOSE CHANGE metFORMIN hydrochloride 1000 mg oral tablet (4 sources) Biguanide Start: metFORMIN (GLUCOPHAGE) 1,000 mg tablet 1,000 mg. 0 05/04/2023 Active Comment on above: 1,000 mg. 24 hr metoprolol succinate 25 mg extended release oral tablet (6 sources) beta-Adrenergic Dilcia Start: take 1 tablet by mouth once daily metoprolol succinate ER (TOPROL XL) 25 mg 24 hr tablet Take 1 tablet by mouth once daily. 0 07/26/2023 Active Start: 10-27-2017 End: 10-09-2023 metoprolol tartrate, short a cting, (LOPRESSOR) 25 mg tablet Take by mouth. 0 10/27/2017 10/09/2023 Discontinued (Duplicate Entry) Start: 10-27-2017 take 12.5 mg by mout h twice daily Metoprolol Tartrate Active 12.5 MG PO TWICE A DAY October 27, 2017 12:00am Comment on above: Take 1 tablet by charlie th once daily. Take by mouth. polyethylene glycol 3350 30538 mg powder for oral solution (2 sources) Osmotic Laxative Start: 06-30-20 18 End: 07-30-20 18 take 17 g by mouth once daily Polyethylene Glycol 3350 Discontinued 17 GM PO DAILY June 30, 2018 12:00am July 30, 2018 1:07am rosuvastatin calcium 40 mg oral tablet (3 sources) HMG-CoA Reductase Inhibitor Start: 07-26-20 23 rosuvastatin (CRESTOR) 40 mg tablet 40 mg. 0 07/26/2023 Active Comment on above: 40 mg. venlafaxine 75 mg oral tablet (5 sources) Serotonin and Norepinephrine Reuptake Inhibitor Start: 10-28-19 18 venlafaxine (EFFEXOR) 75 mg tablet 150 mg. 0 10/27/2017 Active Start: 10-27-2017 take 75 mg by mouth twice ashtyn y Venlafaxine Active 75 MG PO TWICE A DAY October 27, 2017 1:00am Comment on above: 150 mg. Problems Problem Classification Problem Date Documented Da te Episodic/Chronic Calculus of urinary tract (2 sources) Ureteric colic; Translations: [Unspecified renal colic] 05-04-2023 Episodic Intestinal obstruction without hernia (3 sources) Fecal impaction; Translations: [Fecal impaction of rectum] Onset: 08-14-2022 08-16-2022 Episodic Other aftercare (5 sources) Patient encounter status; Translations: [boarder hand (current) use of antithrombotics/a ntiplatelets] Onset: 10-26-2023 10-12-2023 Episodic Other gastrointestinal disorders (2 sources) Constipation; Translations: [Constipation, unspecified] 08-16-2022 Episodic Other screening for suspected conditions (not mental disorders or infectious disease) (1 source) Encounter for screening for malignant neoplasm of colon; Translations: [Screening for colon cancer] Onset: 10-26-2023 Episodic Urinary tract infections (1 source) Acute urinary tract infection; Translations: [Urinary tract infection, site not specified] 05-04-2023 Episodic Results Test Name Value Interpretation Reference Range Facility HISTORY PHYSICALon HISTORY PHYSICAL HNO ID: [id number] Author: GERTRUDIS AMBROSIO MD Service: General Surgery Author Type: Physician Type: H&P Filed: 10/26/2023 09:20 Note Text: HISTORY AND PHYSICAL Will Marr 1950 REFERRING PHYSICIAN: [facility] CHIEF COMPLAINT: Consult (colonoscopy) HPI: The patient is a 73 year old male referred for endoscopy. Will states that he had a colonoscopy greater than 10 years ago. He presents for screening for colon cancer via colonoscopy. He does note occasional watery stools, about one episode per week. He states that his bowel movements are all over the chart - that is - many different colors. He denies blood in his stools. He had a bout of constipation in June but this resolved, he treated with miralax. He notes no colon cancer in his family He is [place] by the [place] - referral [place] [id number] for colonoscopy for screening for colon cancer He has CAD with coronary artery stent last placed in 2004 - on aspirin and plavix PAST MEDICAL HISTORY PAST MEDICAL HISTORY Diagnosis Date Constipation Diabetes mellitus (HCC) Essential hypertension Hyperlipemia Myocardial infarct (HCC) Nephrolithiasis Recurrent UTI Urinary calculus PAST SURGICAL HISTORY PAST SURGICAL HISTORY Procedure Laterality Date PAST SURGICAL HISTORY OF coronary artery stent placed REMV CATARACT EXTRACAP,INSERT LENS CURRENT MEDICATIONS Current Outpatient Medications Medication Sig glucose 4 gram chewable tablet 16 g. insulin glargine-yfgn (SEMGLEE) 100 unit/mL (3 mL) insulin pen INJECT 15 UNITS SUBCUTANEOUSLY AT BEDTIME FOR DIABETES (DISCARD PEN 28 DAYS AFTER FIRST USE) DOSE CHANGE rosuvastatin (CRESTOR) 40 mg tablet 40 mg. alogliptin (NESINA) 25 mg tab Take 25 mg by mouth once daily. clopidogrel (PLAVIX) 75 mg tablet Take 75 mg by mouth once daily. aspirin 81 mg cap 81 mg. dulaglutide (TRULICITY) 0.75 mg/0.5 mL pen injector INJECT CONTENT OF 1 PEN SUBCUTANEOUSLY EVERY WEEK : KEEP REFRIGERATED, HOWEVER, MAY BE KEPT AT ROOM TEMPERATURE FOR UP TO 14 DAYS metFORMIN (GLUCOPHAGE) 1,000 mg tablet 1,000 mg. metoprolol succinate ER (TOPROL XL) 25 mg 24 hr tablet Take 1 tablet by mouth once daily. venlafaxine (EFFEXOR) 75 mg tablet 150 mg. PEG 0449-Cguwyipkirq-Lk t C (MOVIPREP) 100-7.5-2.691 gram TAKE BEFORE PROCEDURE BY MOUTH ONE TIME DIRECTED ON GI BOWEL PREP INSTRUCTION SHEET (Patient not taking: Reported on 10/09/2023) ciprofloxacin HCl (CIPRO) 500 mg tablet Take by mouth. (Patient not taking: Reported on 10/09/2023) glipiZIDE (GLUCOTROL) 5 mg tablet Take 1 tablet by mouth daily before breakfast. (Patient not taking: Reported on 10/09/2023) oxyCODONE-acetamino phen (PERCOCET) 5-325 mg tablet Take by mouth. (Patient not taking: Reported on 10/09/2023) No current facility-administer ed medications for this visit. ALLERGIES: Patient has no known allergies. PERSONAL HISTORY: SOCIAL HISTORY Social History Tobacco Use Smoking status: Former Types: Cigars Smokeless tobacco: Never Vaping Use Vaping Use: Never used Substance Use Topics Alcohol use: Yes Comment: occasional Drug use: Never FAMILY HISTORY FAMILY HISTORY Problem Relation Age of Onset Diabetes Mother Hodgkin Lymphoma Mother REVIEW OF SYSTEMS: General: The patient NOTES fatigue, denies weight loss, denies weight gain, denies feeling hot, and denies feelings of cold. Eyes: The patient denies glaucoma, denies eye injury/surgery, wears glasses or contacts. Ear/Nose/Throat: The patient denies allergies, denies hayfever, denies ear infections, and denies bloody noses. Cardiovascular: The patient denies chest pain, NOTES heart disease, NOTES high blood pressure,NOTES cardiac stent, NOTES prior heart attack, denies irregular heart beat, denies high cholesterol, NOTES poor circulation, denies heart failure, other cardiac issues, NOTES claudication, denies cold feet, denies peripheral arterial stent. Respiratory: The patient denies tuberculosis, denies pneumonia, denies frequent cough, denies pulmonary embolism, denies shortness of breath, and denies coughing up blood. Gastrointestinal: The patient denies difficulty swallowing, denies acid reflux, denies ulcers, denies vomiting, denies jaundice/hepatitis, denies gallbladder problems, NOTES black or tarry stools, denies hemorrhoids, denies bleeding from rectum, denies diverticulitis, NOTES constipation, denies diarrhea, denies loss of stool control, and denies hernias. Kidney/Bladder: The patient NOTES kidney stones, NOTES urine infections, and denies bloody urine. Skin: The patient denies a history of skin cancer, denies bleeding/changing moles, and denies a history of skin rash. Neurologic: The patient denies a history of epilepsy/convulsion s, denies headaches, denies head/spinal injuries, and denies stroke/TIA. Psychiatric: The patient denies psychiatric medications, denies depression, and denies voices (more content not included)... Normal [facility] NURSING PROGon 10-26-2023 NURSING PROG HNO ID: [id number] Author: MAJO CHAVIS RN Service: ? Author Type: Registered Nurse Type: Nursing Progress Note Filed: 10/26/2023 09:28 Note Text: Patient used restroom middle of pre procedure preparation, he reports his stool was semi solid and dark brown. He determined he should cancel procedure at this time and reschedule. Dr Ambrosio notified [facility] NURSING PROG HNO ID: [id number] Author: MAJO CHAVIS RN Service: ? Author Type: Registered Nurse Type: Nursing Progress Note Filed: 10/26/2023 09:33 Note Text: Dr Ambrosio here to see patient pre procedure, aware that patient was unable to complete prep yesterday due to nausea. Dr Ambrosio willing to proceed if patient wanted to, aware she may not be able to see well. Patient says he would like to proceed at this time. [facility] CNOVon 10-09-2023 CNOV Office Visit (GENSWS) ---- WILL MARR ([id number]) 1950 M Date Time Provider Department 10/09/23 10:45 AM GERTRUDIS AMBROSIO During your visit today, we recorded the following information about you: Temperature Pulse Blood pressure Weight 97 degrees 94/minute 130/78 70.8 kg Height 1.753 m Milagro Lopez RN 10/09/2023 10:52 AM Signed REVIEW OF SYSTEMS: General: The patient NOTES fatigue, denies weight loss, denies weight gain, denies feeling hot, and denies feelings of cold. Eyes: The patient denies glaucoma, denies eye injury/surgery, wears glasses or contacts. Ear/Nose/Throat: The patient denies allergies, denies hayfever, denies ear infections, and denies bloody noses. Cardiovascular: The patient denies chest pain, NOTES heart disease, NOTES high blood pressure,NOTES cardiac stent, NOTES prior heart attack, denies irregular heart beat, denies high cholesterol, NOTES poor circulation, denies heart failure, other cardiac issues, NOTES claudication, denies cold feet, denies peripheral arterial stent. Respiratory: The patient denies tuberculosis, denies pneumonia, denies frequent cough, denies pulmonary embolism, denies shortness of breath, and denies coughing up blood. Gastrointestinal: The patient denies difficulty swallowing, denies acid reflux, denies ulcers, denies vomiting, denies jaundice/hepatitis, denies gallbladder problems, NOTES black or tarry stools, denies hemorrhoids, denies bleeding from rectum, denies diverticulitis, NOTES constipation, denies diarrhea, denies loss of stool control, and denies hernias. Kidney/Bladder: The patient NOTES kidney stones, NOTES urine infections, and denies bloody urine. Skin: The patient denies a history of skin cancer, denies bleeding/changing moles, and denies a history of skin rash. Neurologic: The patient denies a history of epilepsy/convulsion s, denies headaches, denies head/spinal injuries, and denies stroke/TIA. Psychiatric: The patient denies psychiatric medications, denies depression, and denies voices, denies substance abuse. Endocrine: The patient denies thyroid disorders, NOTES diabetes, and denies hormonal problems. Hematologic: The patient denies a history of bruising, denies bleeding, and denies anemia, denies blood clots. Infections: The patient denies a history of measles and mumps, denies rheumatic fever, and denies sexually transmitted diseases. Musculoskeletal: The patient denies back pain/injury, denies back problems, denies sciatica, denies knee/foot trouble, denies arthritis, or denies gout. When was patient's last Mammogram screening? N/A Last Colonoscopy: 2004 JUHI Almodovar, Gertrudis Atkins MD 10/12/2023 12:27 PM Signed HISTORY AND PHYSICAL Will Marr 1950 REFERRING PHYSICIAN: [facility] CHIEF COMPLAINT: Consult (colonoscopy) HPI: The patient is a 73 year old male referred for endoscopy. Will states that he had a colonoscopy greater than 10 years ago. He presents for screening for colon cancer via colonoscopy. He does note occasional watery stools, about one episode per week. He states that his bowel movements are all over the chart - that is - many different colors. He denies blood in his stools. He had a bout of constipation in June but this resolved, he treated with miralax. He notes no colon cancer in his family He [place] the [place] - referral [place] [id number] for colonoscopy for screening for colon cancer He has CAD with coronary artery stent last placed in 2004 - on aspirin and plavix PAST MEDICAL HISTORY Diagnosis Date Constipation Diabetes mellitus (HCC) Essential hypertension Hyperlipemia Myocardial infarct (HCC) Nephrolithiasis Recurrent UTI Urinary calculus PAST SURGICAL HISTORY Procedure Laterality Date PAST SURGICAL HISTORY OF coronary artery stent placed REMV CATARACT EXTRACAP,INSERT LENS Current Outpatient Medications Medication Sig glucose 4 gram chewable tablet 16 g. insulin glargine-yfgn (SEMGLEE) 100 unit/mL (3 mL) insulin pen INJECT 15 UNITS SUBCUTANEOUSLY AT BEDTIME FOR DIABETES (DISCARD PEN 28 DAYS AFTER FIRST USE) DOSE CHANGE rosuvastatin (CRESTOR) 40 mg tablet 40 mg. alogliptin (NESINA) 25 mg tab Take 25 mg by mouth once daily. clopidogrel (PLAVIX) 75 mg tablet Take 75 mg by mouth once daily. aspirin 81 mg cap 81 mg. dulaglutide (TRULICITY) 0.75 mg/0.5 mL pen injector INJECT CONTENT OF 1 PEN SUBCUTANEOUSLY EVERY WEEK : KEEP REFRIGERATED, HOWEVER, MAY BE KEPT AT ROOM TEMPERATURE FOR UP TO 14 DAYS metFORMIN (GLUCOPHAGE) 1,000 mg tablet 1,000 mg. metoprolol succinate ER (TOPROL XL) 25 mg 24 hr tablet Take 1 tablet by mouth once daily. venlafaxine (EFFEXOR) 75 mg tablet 150 mg. PEG 0287-Dgxalepmclr-Mq t C (MOVIPREP) 100-7.5-2.691 gram TAKE BEFORE PROCEDURE BY MOUTH ONE TIME (more content not included)... Normal [facility] ---- WILL MARR ([id number]) 1950 M Date Time Provider Department 10/09/23 GERTRUDIS AMBROSIO During your visit today, we recorded the following information about you: Melly Simms 10/09/2023 11:45 AM Signed 10/26/[address] AMBROSIO PATIENT TO BE OFF PLAVIX 3 DAYS PRIOR TO PROCEDURE Ivone Charles 12/05/2023 10:22 AM Signed Patient cancelled his colonoscopy the day of his procedure, stating he was not able to do his prep all the way through, he kept vomiting. Patient rescheduled to February 20, and will use Miralax /Dulcolax Bowel Prep. Mailed Instructions with a phone number to reach us with questions Ivone Charles Allergies As of Date: 10/09/2023 (No Known Allergies) Date Reviewed: 10/09/2023 Reviewed by: Milagro Lopez, JUHI - Fully Assessed Reason for Visit: 10/26/2023 COLON ASC [Other] Prescriptions as of 12/05/2023 - glucose 4 gram chewable tablet 16 g. - insulin glargine-yfgn (SEMGLEE) 100 unit/mL (3 mL) insulin pen INJECT 15 UNITS SUBCUTANEOUSLY AT BEDTIME FOR DIABETES (DISCARD PEN 28 DAYS AFTER FIRST USE) DOSE CHANGE - PEG 3936-Hsvvzavvedl-Sf t C (MOVIPREP) 100-7.5-2.691 gram - rosuvastatin (CRESTOR) 40 mg tablet 40 mg. - alogliptin (NESINA) 25 mg tab Take 25 mg by mouth once daily. - clopidogrel (PLAVIX) 75 mg tablet Take 75 mg by mouth once daily. - ciprofloxacin HCl (CIPRO) 500 mg tablet Take by mouth. - aspirin 81 mg cap 81 mg. - dulaglutide (TRULICITY) 0.75 mg/0.5 mL pen injector INJECT CONTENT OF 1 PEN SUBCUTANEOUSLY EVERY WEEK : KEEP REFRIGERATED, HOWEVER, MAY BE KEPT AT ROOM TEMPERATURE FOR UP TO 14 DAYS - glipiZIDE (GLUCOTROL) 5 mg tablet Take 1 tablet by mouth daily before breakfast. - metFORMIN (GLUCOPHAGE) 1,000 mg tablet 1,000 mg. - metoprolol succinate ER (TOPROL XL) 25 mg 24 hr tablet Take 1 tablet by mouth once daily. - venlafaxine (EFFEXOR) 75 mg tablet 150 mg. - oxyCODONE-acetamino phen (PERCOCET) 5-325 mg tablet Take by mouth. Problem List As Of Date: 10/09/2023 (None) Encounter Status:Closed by IVONE CHARLES on 12/05/23 Normal [facility] Absolute lymphocyte countOrd ered By: Hansel Ware on 05-04-2023 Lymphocytes Auto (Unsp spec) [#/Vol] 2.38 10*3/uL 0.83-4.51 [facility] Basophil percentageOrdered B y: Hansel Ware on 05-04-2023 Basophil percentage 10-25 SEEN /hpf 0-5 [facility] Basophils/100 WBC (Bld) 0.8 % 0-1 [facility] Chloride [Moles/Vol] 103 mmol/L 98-107 [facility] Eosinophils/100 WBC (Bld) 4.6 % 0-5 [facility] Glucose [Mass/Vol] 182 mg/dL 74-106 [facility] Comment on above: Fasting Glucose resu lt greater than or equal to 126 mg/dL suggests DIABETES MELLITUS per A.D.A. criteria. Neutrophils (Bld) [#/Vol] 4.5 10*3/uL 2.0-7.7 [facility] Neutrophils/100 WBC (Bld) 56.1 % 47-70 [facility] Potassium [Moles/Vol] 3.9 mmol/L 3.5-5.1 [facility] Sodium [Moles/Vol] 137 mmol/L 136-145 [facility] WBC (Bld) [#/Vol] 8.0 10*3/uL 4.4-11.0 [facility] Bilirubin Test strip Ql (U)O rdered By: Hansel Ware on 05-04-2023 Bilirubin Ql (U) 1 mg/dL Negative [facility] Comment on above: COLOR OF URINE MAY A FFECT DIPSTICK RESULTS. Blood erythrocytes count (nu mber/volume)Ordered By: Hansel Ware on 05-04-2023 RBC (Bld) [#/Vol] 5.14 10*6/uL 4.6-6.2 [facility] Blood hemoglobin measurement (mass/volume)Ordered By: Hansel Ware on 05-04-2023 Hemoglobin (Bld) [Mass/Vol] 15.3 g/dL 13.0-16.5 [facility] Blood lymphocytes/100 leukoc ytesOrdered By: Hansel Ware on 05-04-2023 Lymphocytes/100 WBC (Bld) 29.8 % 19-41 [facility] Blood monocytes/100 leukocyt esOrdered By: Hansel Ware on 05-04-2023 Monocytes/100 WBC (Bld) 8.4 % 0-10 [facility] Blood platelet mean volumeOr dered By: Hansel Ware on 05-04-2023 Platelet mean volume (Bld) [Entitic vol] 8.9 fL 6.2-12.0 [facility] Determination of erythrocyte mean corpuscular volume (MCV)Ordered By: Hansel Ware on 05-04-2023 MCV (RBC) [Entitic vol] 85.6 fL 80-94 [facility] Hematocrit Auto (Bld) [Volum e fraction]Ordered By: Hansel Ware on 05-04-2023 Hematocrit (Bld) [Volume fraction] 44.0 % 40-54 [facility] Ketones Test strip Ql (U)Ord ered By: Hansel Ware on 05-04-2023 Ketones Ql (U) 15 mg/dl Negative [facility] Laboratory - Chemistry and C hemistry - challengeOrdered By: Hansel Ware on 05-04-2023 CO2 [Moles/Vol] 24.0 mmol/L 21.0-32.0 [facility] Urea nitrogen/Creatinine [Mass ratio] 15.7 mg/mg 10-20 [facility] Laboratory - Hematology and Cell countsOrdered By: Hansel Ware on 05-04-2023 Erythrocyte distribution width (RBC) [Entitic vol] 39.0 fL 35.1-43.9 [facility] Erythrocyte distribution width (RBC) [Ratio] 12.6 % 11.6-14.6 [facility] Immature granulocytes/100 WBC (Bld) 0.300 % 0.0-0.9 [facility] Comment on above: IG% - Immature Granu locytes (promyelocytes, myelocytes and metamyelocytes) > 1% indicates that a LEFT SHIFT is Present. MCH (RBC) [Entitic mass] 29.8 pg 27.0-32.0 [facility] Nucleated RBC/100 WBC (Bld) [Ratio] 0 % 0-5 [facility] MCHC Auto (RBC) [Mass/Vol]Or dered By: Hansel Ware on 05-04-2023 MCHC (RBC) [Mass/Vol] 34.8 g/dL 32-36 [facility] Mucus LM Ql (Urine sed)Order ed By: Hansel Ware on 05-04-2023 Mucus Ql (Urine sed) 0 SEEN /hpf [facility] Nitrite Test strip Ql (U)Ord ered By: Hansel Ware on 05-04-2023 Nitrite Ql (U) Positive Negative [facility] No Panel InformationOrdered By: Hansel Ware on 05-04-2023 Estimated Creatinine Clearance Calc 58.06 ml/min [facility] Estimated GFR (MDRD) Amer 80 mL/min >60 [facility] Comment on above: GFR Calc Estimated GFR (MDRD) Non-Af Amer 66 mL/min >60 [facility] Comment on above: Non- GFR Calc Platelets bldOrdered By: Rajan Ware on 05-04-2023 Platelets (Bld) [#/Vol] 250 10*3/uL 150-450 [facility] Protein Test strip Ql (U)Ord ered By: Hansel Ware on 05-04-2023 Protein Ql (U) 100 mg/dl Negative [facility] Serum or plasma calcium kaden urement (mass/volume)Ordered By: Hansel Ware on 05-04-2023 Calcium [Mass/Vol] 9.8 mg/dL 8.5-10.1 [facility] Serum or plasma creatinine m easurement (mass/volume)Ordered By: Hansel Ware on 05-04-2023 Creatinine [Mass/Vol] 1.15 mg/dL 0.70-1.30 [facility] Comment on above: The validity of the calculated GFR & GFRAA in patients over 70 years has not been determined. Clinical correlation is essential. Serum or plasma urea nitroge n measurement (mass/volume)Ordered By: Hansel Ware on 05-04-2023 Urea nitrogen [Mass/Vol] 18 mg/dL 7-18 [facility] Squamous epithelial cells de tection in urine sediment by light microscopyOrdered By: Hansel Ware on 05-04-2023 Epithelial cells.squamous LM Ql (Urine sed) 0 SEEN /hpf 0-5 [facility] Thin prep Papanicolaou smear with manual screeningOrdered By: Hansel Ware on 05-04-2023 Thin prep Papanicolaou smear with manual screening 10 5-15 [facility] Urine blood detectionOrdered By: Hansel Ware on 05-04-2023 RBC Ql (U) 250 /ul Negative [facility] RBC Ql (U) > 100 SEEN /hpf 0-5 [facility] Urine clarityOrdered By: Rajan Ware on 05-04-2023 Clarity (U) Cloudy Clear [facility] Urine color determinationOrd ered By: Hansel Ware on 05-04-2023 Color (U) Yellow Yellow [facility] Urine glucose detectionOrder ed By: Hansel Ware on 05-04-2023 Glucose Ql (U) 100 mg/dl Normal [facility] Urine leukocyte esterase det ection by dipstickOrdered By: Hansel Ware on 05-04-2023 Leukocyte esterase Test strip Ql (U) 100 /ul Negative [facility] Urine pHOrdered By: Hansel Ware on 05-04-2023 pH (U) 5.0 [pH] 5.0 - 8.0 [facility] Urine sediment bacteria coun t by microscopy (number/high power field)Ordered By: Hansel Ware on 05-04-2023 Bacteria LM.HPF (Urine sed) [#/Area] 3 /[HPF] None Seen [facility] Urine specific gravity measu rementOrdered By: Hansel Ware on 05-04-2023 Specific gravity (U) [Rel density] 1.025 1.002-1.030 [facility] Urobilinogen Auto test strip Ql (U)Ordered By: Hansel Ware on 05-04-2023 Urobilinogen Ql (U) 4 mg/dl Normal [facility] Emergency Department Summary on 08-08-2022 Emergency Department Summary [facility] Medical Records Department [address] [place] [address] Emergency Department Summary 08/08/22 MR#: [id number] Acct: [id number] Name: WILL MARR Rep #: [id number] : 1950 72 From: Hansel Ware MD PCP: [facility],[place] Status:REG ER Location: ED HPI HPI - GI History of Present Illness Chief Complaint: Constipation Informant: patient Abdominal Pain/Flank Pain Onset: Hours Context: Gradual Onset Timing: Continuous Quality: Aching Location: - (Suprapubic/lower abdomen) Current Severity: Mild Maximum Severity: Mild Worsened by: Nothing Relieved by: Nothing Nausea/Vomiting/Caro sis GI Symptom: Negative for Nausea or Vomiting Diarrhea/Melena/Hem atochezia GI Symptom: Negative for Diarrhea, Melena or Hematochezia Narrative Narrative: Patient states for the last several hours he has been constipated, he feels like he has a large ball of solid stool that he is unable to pass and requesting assistance. He has some mild lower abdominal discomfort that started after this, no nausea or vomiting. No history of any abdominal surgeries. Has had this happen before. States he feels he is dependent on MiraLAX because of chronic constipation but he ran out 4 days ago. [facility] Medical History Diabetes Hyperlipidemia Hypertension Myocardial infarct Home Medications Adderall 10 mg Tablet 10 mg PO TID 10/27/17 [History Last Taken Unknown] aspirin 325 mg tablet,delayed release 325 mg PO DAILY 10/27/17 [History Last Taken Unknown] clopidogrel 75 mg tablet 75 mg PO DAILY 10/27/17 [History Last Taken Unknown] hydrocodone-acetami nophen 5-325mg 5mg-325mg 1 - 2 tab PO Q6H PRN PRN Pain 2 days #8 tabs 10/27/17 [Rx Last Taken Unknown] metoprolol tartrate 25 mg tablet 12.5 mg PO BID 10/27/17 [History Last Taken Unknown] simvastatin 80 mg tablet (Zocor) 80 mg PO QHS 10/27/17 [History Last Taken Unknown] venlafaxine 75 mg tablet 75 mg PO BID 10/27/17 [History Last Taken Unknown] Allergy/AdvReac Type Severity Reaction Status Date / Time No Known Allergies Allergy Verified 06/30/18 18:13 Surgical History (Updated 08/08/22 @ 02:00 by Dudley Shetty) History of coronary artery stent placement Social History Smoking Status: Current some day smoker tobacco type: cigars ROS ROS ED Constitutional Constitutional ED: Denies chills or fever(s) Eyes Eyes: Denies change in vision or diplopia ENT ENT ED: Denies rhinorrhea or sore throat Cardiovascular Cardiovascular: Denies chest pain or palpitations Respiratory/Chest Respiratory/Chest: Denies cough or dyspnea Gastrointestinal Gastrointestinal: Reports abdominal pain and constipation; Denies diarrhea, nausea or vomiting Genitourinary Genitourinary ED: Denies dysuria or hematuria Musculoskeletal Musculoskeletal: Denies back pain or neck pain Integumentary Denies abscess or rash Neurologic Neurologic: Denies headache(s), paresthesias or weakness Psychiatric Psychiatric: Denies anxiety or suicidal thoughts EXAM Physical Exam Const Vital Signs: 08/08/22 01:55 08/08/22 05:54 08/08/22 06:26 Temperature 97.7 F L 98.6 F Temperature Source Temporal Pulse Rate 96 89 Pulse Rate [1 (Initial Baseline)] Pulse Rate [2] Respiratory Rate 18 15 Respiratory Rate [1 (Initial Baseline)] Respiratory Rate [2] Blood Pressure 171/89 H 138/104 H Blood Pressure [1 (Initial Baseline)] Blood Pressure [2] Blood Pressure Mean 116 Pulse Ox 96 98 Oxygen Delivery Method Room Air Room Air Room Air Oxygen Delivery Method [1 (Initial Baseline)] Oxygen Delivery Method [2] Oxygen Flow Rate (L/min) Oxygen Flow Rate (L/min) [2] 08/08/22 06:24 08/08/22 06:27 08/08/22 06:30 Temperature Temperature Source Pulse Rate Pulse Rate [1 (Initial Baseline)] Pulse Rate [2] Respiratory Rate Respiratory Rate [1 (Initial Baseline)] Respiratory Rate [2] Blood Pressure Blood Pressure [1 (Initial Baseline)] Blood Pressure [2] Blood Pressure Mean Pulse Ox Oxygen Delivery Method Room Air Nasal Cannula Room Air Oxygen Delivery Method [1 (Initial Baseline)] Oxygen Delivery Method [2] Oxygen Flow Rate (L/min) 2 Oxygen Flow Rate (L/min) [2] 08/08/22 06:21 08/08/22 06:39 Temperature Temperature Source Pulse Rate 85 Pulse Rate [1 (Initial Baseline)] 89 Pulse Rate [2] 93 Respiratory Rate 16 Respiratory Rate [1 (Initial Baseline)] 15 Respiratory Rate [2] 14 Blood Pressure 149/86 H Blood Pressure [1 (Initial Baseline)] 138/104 H Blood Pressure [2] 182/93 H Blood Pressure Mean 107 Pulse Ox 100 Oxygen Delivery Method Room Air Oxygen Delivery Method [ (more content not included)... Normal [facility] Vital Signs Date Time Vital Sign Value Performing Clinician Faci lity 10-09-2023 10:46-0500 Body height 175.3 cm Gertrudis Ambrosio MD Work Phone: [facility] 10-09-2023 10:46-0500 Body temperature 97 [degF] Gertrudis Ambrosio MD Work Phone: [facility] 10-09-2023 10:46-0500 Body weight 70.76 kg Gertrudis Ambrosio MD Work Phone: [facility] 10-09-2023 10:46-0500 Diastolic blood pressure 78 mm[Hg] Gertrudis Ambrosio MD Work Phone: [facility] 10-09-2023 10:46-0500 Heart rate 94 /min Gertrudis Ambrosio MD Work Phone: [facility] 10-09-2023 10:46-0500 SaO2% (BldA) [Mass fraction] 95 % Gertrudis Ambrosio MD Work Phone: [facility] 10-09-2023 10:46-0500 Systolic blood pressure 130 mm[Hg] Gertrudis Ambrosio MD Work Phone: [facility] 05-04-2023 09:21-0400 Diastolic blood pressure 62 mm[Hg] [facility] 05-04-2023 09:21-0400 Heart rate 74 /min [facility] 05-04-2023 09:21-0400 Respiratory rate 16 /min [facility] 05-04-2023 09:21-0400 SaO2% (BldA) [Mass fraction] 99 % [facility] 05-04-2023 09:21-0400 Systolic blood pressure 118 mm[Hg] [facility] 05-04-2023 06:33-0400 Body height 175.26 cm [facility] 05-04-2023 06:33-0400 Body mass index (BMI) [Ratio] 23.6 kg/m2 [facility] 05-04-2023 06:33-0400 Body temperature 96.3 [degF] [facility] 05-04-2023 06:33-0400 Body weight 72.57 kg [facility] 08-08-2022 06:39-0500 Diastolic blood pressure 86 mm[Hg] [facility] Work Phone: 08-08-2022 06:39-0500 Heart rate 85 /min [facility] Work Phone: 08-08-2022 06:39-0500 Respiratory rate 16 /min [facility] Work Phone: 08-08-2022 06:39-0500 SaO2% (BldA) [Mass fraction] 100 % [facility] Work Phone: 08-08-2022 06:39-0500 Systolic blood pressure 149 mm[Hg] [facility] Work Phone: 08-08-2022 06:27-0500 Inhaled oxygen flow rate 2 L/min [facility] Work Phone: 08-08-2022 06:26-0500 Body temperature 98.6 [degF] [facility] Work Phone: 08-08-2022 01:55-0500 Body height 175.26 cm [facility] Work Phone: 08-08-2022 01:55-0500 Body mass index (BMI) [Ratio] 24 kg/m2 [facility] Work Phone: 08-08-2022 01:55-0500 Body weight 73.8 kg [facility] Work Phone: Encounters Encounter Date Encounter Type Care Provider Facility Start: 10-26-2023 ambulatory [facility]UDIS [facility] ty[facility] Start: 10-26-2023 End: 10-26-2023 Subsequent hospital visit by physician Gertrudis Ambrosio MD Work Phone: Ambulatory Surgery Comment on above: Screening for colon cancer [Z12.11] Start: 10-09-2023 Telephone encounter Gertrudis Allred MD Work Phone: General Surgery Comment on above: 10/26/2023 [facility] Start: 10-09-2023 End: 10-09-2023 ambulatory GERTRUDIS AMBROSIO Facility:[facility] Start: 10-09-2023 End: 10-09-2023 Patient encounter procedure Gertrudis Ambrosio MD Work Phone: General Surgery Comment on above: Screening for colon cancer; Antiplatelet or antithrombotic long-term use Start: 05-04-2023 End: 05-04-2023 Emergency department patient visit [facility] Work Phone: Start: 08-08-2022 End: 08-08-2022 Emergency department patient visit Dr. Hansel Ware Facility:[facility] Start: 08-08-2022 End: 08-08-2022 Emergency department patient visit [facility] Procedures Date Procedure Procedure Detail Performing Clinician Start: 05-04-2023 Computed tomography of abdomen and pelvis with intravenous contrast Plan of Treatment Date Care Activity Detail Author Start: 07-27-2025 Urine microalbumin profile DTaP,Tdap,Td Vaccine (3 - Td or Tdap) [facility] Start: 08-27-2023 Advance Directive Discussion Advance Directive Discussion [facility] Start: 08-27-2023 Behavioral Health Screening Behavioral Health Screening [facility] Start: 08-27-2023 Depression Assessment Depression Ass essment [facility] Start: 05-04-2023 Bacteria identified in Urine by Culture Urine Culture [facility] Start: 05-04-2023 [facility] Start: 04-27-2023 Covid-19 Vaccine () Covid-19 Vaccine () [facility] Start: 2010 RSV Vaccine (1 - 1-d ose 60+ series) RSV Vaccine (1 - 1-dose 60+ series) [facility] Start: 1995 Diabetes Screening Diabetes Screenin g [facility] Start: 1995 Screening for malign ant neoplasm of colon [facility] Start: 1985 Lipid panel Lipid Screening [facility] Start: 1968 Hepatitis C screening Hepatitis C Sc [facility] Start: 1950 Abdominal aortic aneurysm screening Abdominal Aortic Aneurysm Screening [facility] Patient Education [facility] Work Phone: Patient referral [facility] Work Phone: End: 10-09-2024 Screening colonoscopy COLONOSCOPY SCREENING Endoscopy Routine Screening for colon cancer 1 Occurrences starting 10/09/2023 until 10/09/2024 [facility] Work Phone: Comment on above: 1 Occurrences starti ng 10/09/2023 until 10/09/2024 [facility] Payers Date Payer Category Payer Self-pay [id number] 2019 Department [facility] ([employer] and others) [id number] 2019 Private Health Insurance [facility] [employer] [id number] 2019-Present [phone] [address] [place] [address] PPO [id number] 2005 Unknown [employer] [place] [id number] Medicare MEDICARE PART A B [id number] Unknown [id number] Social History Date Type Detail Facility Start: 08-08-2022 End: 05-04-2023 Tobacco smoking status SDIS Unknown if ever smoked [facility] Start: 1950 Sex Assigned At Male [facility] Start: 10-09-2023 [facility] History of tobacco use Current smoker [facility] History of tobacco use Cigar Smoker [facility] Start: 10-09-2023 Tobacco use and exposure Smokeless tobacco non-user [facility] Start: 10-09-2023 Alcohol intake Current drinke r of alcohol (finding) [facility] Start: 10-09-2023 History of Social function [facility] Start: 10-09-2023 Tobacco use panel [facility] National Score (1-100), lower number is lower risk 70 [facility] Start: 10-09-2023 Alcohol Comment [facility] Start: 1950 Sex Assigned At Not on file [facility] Mental Status Date Assessment Result Facility 08-08-2022 Cognitive function Follows Commands;Drows y [facility] Work Phone: Clinical Notes 10-09-2023 to 12-05-2023 Telephone Encounter - Ivone Charles - 12/05/2023 10:08 AM EDTTelephone Encounter - Melly Simms - 10/09/2023 11:44 AM Gertrudis Lackey MD - 10/26/2023 9:45 AM EST Note Date & Type Note Facility 12-05-2023 Miscellaneous Notes Patient cancelled his colonoscopy the day of his procedure, stating he was not able to do his prep all the way through, he kept vomiting. Patient rescheduled to February 20, and will use Miralax /Dulcolax Bowel Prep. Mailed Instructions with a phone number to reach us with questions Ivone Charles 10/26/[address] AMBROSIO PATIENT TO BE OFF PLAVIX 3 DAYS PRIOR TO PROCEDURE documented in this encounter [facility] 10-26-2023 History and physical note UPDATED PROCEDURAL SEDATION HISTORY AND PHYSICAL EXAMINATION SERVICE DATE: 10/26/2023 SERVICE TIME: 9:19 PHYSICAL EXAM MUST BE COMPLETED ON ADMISSION PROCEDURE: colonoscopy, possible biopsies Procedure Indications: screening for colon cancer The History and Physical (completed in the past 30 days) has been reviewed and the patient has been examined. The contents accurately reflect the patient's condition with the following additions or revisions since the H&P was completed. ASA Class: ASA Class:: Patient with mild systemic disease Examination indicates no changes. AIRWAY: Airway Visualization of Uvula: Yes Mouth opening greater than 2 fingerbreadths: Yes Neck Full Range of Motion: Yes LUNGS: Lungs clear to auscultation CARDIAC: Regular rhythm,Regular rate Provisional Diagnosis/Treatment Plan: colonoscopy, possible biopsies SEDATION GOAL: Moderate This H&P can be found in the Electronic Medical Record . SIGNATURE: Gertrudis Ambrosio MD PATIENT NAME: Will Marr DATE: October 26, 2023 TIME: 9:20 AM Source Note - Gertrudis Ambrosio MD - 10/26/2023 9:45 AM EST HISTORY AND PHYSICAL Will Marr 1950 REFERRING PHYSICIAN: [facility] CHIEF COMPLAINT: Consult (colonoscopy) HPI: The patient is a 73 year old male referred for endoscopy. Will states that he had a colonoscopy greater than 10 years ago. He presents for screening for colon cancer via colonoscopy. He does note occasional watery stools, about one episode per week. He states that his bowel movements are all over the chart - that is - many different colors. He denies blood in his stools. He had a bout of constipation in June but this resolved, he treated with miralax. He notes no colon cancer in his family He is referred by the [place] - referral number [id number] for colonoscopy for screening for colon cancer He has CAD with coronary artery stent last placed in 2004 - on aspirin and plavix PAST MEDICAL HISTORY PAST MEDICAL HISTORY Diagnosis Date Constipation Diabetes mellitus (HCC) Essential hypertension Hyperlipemia Myocardial infarct (HCC) Nephrolithiasis Recurrent UTI Urinary calculus PAST SURGICAL HISTORY PAST SURGICAL HISTORY Procedure Laterality Date PAST SURGICAL HISTORY OF coronary artery stent placed REMV CATARACT EXTRACAP,INSERT LENS CURRENT MEDICATIONS Current Outpatient Medications Medication Sig glucose 4 gram chewable tablet 16 g. insulin glargine-yfgn (SEMGLEE) 100 unit/mL (3 mL) insulin pen INJECT 15 UNITS SUBCUTANEOUSLY AT BEDTIME FOR DIABETES (DISCARD PEN 28 DAYS AFTER FIRST USE) DOSE CHANGE rosuvastatin (CRESTOR) 40 mg tablet 40 mg. alogliptin (NESINA) 25 mg tab Take 25 mg by mouth once daily. clopidogrel (PLAVIX) 75 mg tablet Take 75 mg by mouth once daily. aspirin 81 mg cap 81 mg. dulaglutide (TRULICITY) 0.75 mg/0.5 mL pen injector INJECT CONTENT OF 1 PEN SUBCUTANEOUSLY EVERY WEEK : KEEP REFRIGERATED, HOWEVER, MAY BE KEPT AT ROOM TEMPERATURE FOR UP TO 14 DAYS metFORMIN (GLUCOPHAGE) 1,000 mg tablet 1,000 mg. metoprolol succinate ER (TOPROL XL) 25 mg 24 hr tablet Take 1 tablet by mouth once daily. venlafaxine (EFFEXOR) 75 mg tablet 150 mg. PEG 3703-Rbsfeewtiai-Btk C (MOVIPREP) 100-7.5-2.691 gram TAKE BEFORE PROCEDURE BY MOUTH ONE TIME DIRECTED ON GI BOWEL PREP INSTRUCTION SHEET (Patient not taking: Reported on 10/09/2023) ciprofloxacin HCl (CIPRO) 500 mg tablet Take by mouth. (Patient not taking: Reported on 10/09/2023) glipiZIDE (GLUCOTROL) 5 mg tablet Take 1 tablet by mouth daily before breakfast. (Patient not taking: Reported on 10/09/2023) oxyCODONE-acetaminophen (PERCOCET) 5-325 mg tablet Take by mouth. (Patient not taking: Reported on 10/09/2023) No current facility-administered medications for this visit. ALLERGIES: Patient has no known allergies. PERSONAL HISTORY: SOCIAL HISTORY Social History Tobacco Use Smoking status: Former Types: Cigars Smokeless tobacco: Never Vaping Use Vaping Use: Never used Substance Use Topics Alcohol use: Yes Comment: occasional Drug use: Never FAMILY HISTORY FAMILY HISTORY Problem Relation Age of Onset Diabetes Mother Hodgkin Lymphoma Mother REVIEW OF SYSTEMS: General: The patient NOTES fatigue, denies weight loss, denies weight gain, denies feeling hot, and denies feelings of cold. Eyes: The patient denies glaucoma, denies eye injury/surgery, wears glasses or contacts. Ear/Nose/Throat: The patient denies allergies, denies hayfever, denies ear infections, and denies bloody noses. Cardiovascular: The patient denies chest pain, NOTES heart disease, NOTES high blood pressure,NOTES cardiac stent, NOTES prior heart attack, denies irregular heart beat, denies high cholesterol, NOTES poor circulation, denies heart failure, other cardiac issues, NOTES claudication, denies cold feet, denies peripheral arterial stent. Respiratory: The patient denies tuberculosis, denies pneumonia, denies frequent cough, denies pulmonary embolism, denies shortness of breath, and denies coughing up blood. Gastrointestinal: The patient denies difficulty swallowing, denies acid reflux, denies ulcers, denies vomiting, denies jaundice/hepatitis, denies gallbladder problems, NOTES black or tarry stools, denies hemorrhoids, denies bleeding from rectum, denies diverticulitis, NOTES constipation, denies diarrhea, denies loss of stool control, and denies hernias. Kidney/Bladder: The patient NOTES kidney stones, NOTES urine infections, and denies bloody urine. Skin: The patient denies a history of skin cancer, denies bleeding/changing moles, and denies a history of skin rash. Neurologic: The patient denies a history of epilepsy/convulsions, denies headaches, denies head/spinal injuries, and denies stroke/TIA. Psychiatric: The patient denies psychiatric medications, denies depression, and denies voices, denies substance abuse. Endocrine: The patient denies thyroid disorders, NOTES diabetes, and denies hormonal problems. Hematologic: The patient denies a history of bruising, denies bleeding, and denies anemia, denies blood clots. Infections: The patient denies a history of measles and mumps, denies rheumatic fever, and denies sexually transmitted diseases. Musculoskeletal: The patient denies back pain/injury, denies back problems, denies sciatica, denies knee/foot trouble, denies arthritis, or denies gout. When was patient's last Mammogram screening? N/A Last Colonoscopy: 2004 Milagro Lopez RN PHYSICAL EXAMINATION: General: The patient is 73 year old male, well nourished, well hydrated in no acute distress. The patient is oriented to time, place, and person. VITALS: Blood pressure 130/78, pulse 94, temperature 36.1 C (97 F), height 175.3 cm (5' 9), weight 70.8 kg (156 lb), SpO2 95%. Body mass index is 23.04 kg/m . Head: Normal cephalic, atraumatic Eyes: pupils are equally round, sclera are clear/anicteric, wearing glasses Neck is supple with no tracheal deviation Cardiac: normal heart sounds, regular Respiratory: Normal respiratory excursion and pattern. Abdominal exam: benign Extremities: no clubbing, cyanosis or edema. Neuro: non focal Psych: normal mood IMPRESSION: screening for colon cancer via colonoscopy PLAN: I have discussed the above with the patient. I have offered colonoscopy, possible biopsies I have explained the procedure to the patient. I have counseled the patient as to the risks of the procedure, including but not limited to: infection, bleeding, injury to any intrabdominal organs such as liver/spleen, perforation of the GI tract, inability to complete the procedure, complications of anesthesia, etc. - the patient understands. I have told patient to be off Plavix for two days prior to procedure. The patient wishes to proceed. I have answered all questions to the patient s satisfaction and the patient has no further questions. Diagnoses: (Z12.11) Screening for colon cancer (Z79.02) Antiplatelet or antithrombotic long-term use Gertrudis Ambrosio MD HISTORY AND PHYSICAL Will Marr 1950 REFERRING PHYSICIAN: [facility] CHIEF COMPLAINT: Consult (colonoscopy) HPI: The patient is a 73 year old male referred for endoscopy. Will states that he had a colonoscopy greater than 10 years ago. He presents for screening for colon cancer via colonoscopy. He does note occasional watery stools, about one episode per week. He states that his bowel movements are all over the chart - that is - many different colors. He denies blood in his stools. He had a bout of constipation in June but this resolved, he treated with miralax. He notes no colon cancer in his family He is referred by the [place] - referral [place] [id number] for colonoscopy for screening for colon cancer He has CAD with coronary artery stent last placed in 2004 - on aspirin and plavix PAST MEDICAL HISTORY PAST MEDICAL HISTORY Diagnosis Date Constipation Diabetes mellitus (HCC) Essential hypertension Hyperlipemia Myocardial infarct (HCC) Nephrolithiasis Recurrent UTI Urinary calculus PAST SURGICAL HISTORY PAST SURGICAL HISTORY Procedure Laterality Date PAST SURGICAL HISTORY OF coronary artery stent placed REMV CATARACT EXTRACAP,INSERT LENS CURRENT MEDICATIONS Current Outpatient Medications Medication Sig glucose 4 gram chewable tablet 16 g. insulin glargine-yfgn (SEMGLEE) 100 unit/mL (3 mL) insulin pen INJECT 15 UNITS SUBCUTANEOUSLY AT BEDTIME FOR DIABETES (DISCARD PEN 28 DAYS AFTER FIRST USE) DOSE CHANGE rosuvastatin (CRESTOR) 40 mg tablet 40 mg. alogliptin (NESINA) 25 mg tab Take 25 mg by mouth once daily. clopidogrel (PLAVIX) 75 mg tablet Take 75 mg by mouth once daily. aspirin 81 mg cap 81 mg. dulaglutide (TRULICITY) 0.75 mg/0.5 mL pen injector INJECT CONTENT OF 1 PEN SUBCUTANEOUSLY EVERY WEEK : KEEP REFRIGERATED, HOWEVER, MAY BE KEPT AT ROOM TEMPERATURE FOR UP TO 14 DAYS metFORMIN (GLUCOPHAGE) 1,000 mg tablet 1,000 mg. metoprolol succinate ER (TOPROL XL) 25 mg 24 hr tablet Take 1 tablet by mouth once daily. venlafaxine (EFFEXOR) 75 mg tablet 150 mg. PEG 2134-Bkgbegoycjz-Ipi C (MOVIPREP) 100-7.5-2.691 gram TAKE BEFORE PROCEDURE BY MOUTH ONE TIME DIRECTED ON GI BOWEL PREP INSTRUCTION SHEET (Patient not taking: Reported on 10/09/2023) ciprofloxacin HCl (CIPRO) 500 mg tablet Take by mouth. (Patient not taking: Reported on 10/09/2023) glipiZIDE (GLUCOTROL) 5 mg tablet Take 1 tablet by mouth daily before breakfast. (Patient not taking: Reported on 10/09/2023) oxyCODONE-acetaminophen (PERCOCET) 5-325 mg tablet Take by mouth. (Patient not taking: Reported on 10/09/2023) No current facility-administered medications for this visit. ALLERGIES: Patient has no known allergies. PERSONAL HISTORY: SOCIAL HISTORY Social History Tobacco Use Smoking status: Former Types: Cigars Smokeless tobacco: Never Vaping Use Vaping Use: Never used Substance Use Topics Alcohol use: Yes Comment: occasional Drug use: Never FAMILY HISTORY FAMILY HISTORY Problem Relation Age of Onset Diabetes Mother Hodgkin Lymphoma Mother REVIEW OF SYSTEMS: General: The patient NOTES fatigue, denies weight loss, denies weight gain, denies feeling hot, and denies feelings of cold. Eyes: The patient denies glaucoma, denies eye injury/surgery, wears glasses or contacts. Ear/Nose/Throat: The patient denies allergies, denies hayfever, denies ear infections, and denies bloody noses. Cardiovascular: The patient denies chest pain, NOTES heart disease, NOTES high blood pressure,NOTES cardiac stent, NOTES prior heart attack, denies irregular heart beat, denies high cholesterol, NOTES poor circulation, denies heart failure, other cardiac issues, NOTES claudication, denies cold feet, denies peripheral arterial stent. Respiratory: The patient denies tuberculosis, denies pneumonia, denies frequent cough, denies pulmonary embolism, denies shortness of breath, and denies coughing up blood. Gastrointestinal: The patient denies difficulty swallowing, denies acid reflux, denies ulcers, denies vomiting, denies jaundice/hepatitis, denies gallbladder problems, NOTES black or tarry stools, denies hemorrhoids, denies bleeding from rectum, denies diverticulitis, NOTES constipation, denies diarrhea, denies loss of stool control, and denies hernias. Kidney/Bladder: The patient NOTES kidney stones, NOTES urine infections, and denies bloody urine. Skin: The patient denies a history of skin cancer, denies bleeding/changing moles, and denies a history of skin rash. Neurologic: The patient denies a history of epilepsy/convulsions, denies headaches, denies head/spinal injuries, and denies stroke/TIA. Psychiatric: The patient denies psychiatric medications, denies depression, and denies voices, denies substance abuse. Endocrine: The patient denies thyroid disorders, NOTES diabetes, and denies hormonal problems. Hematologic: The patient denies a history of bruising, denies bleeding, and denies anemia, denies blood clots. Infections: The patient denies a history of measles and mumps, denies rheumatic fever, and denies sexually transmitted diseases. Musculoskeletal: The patient denies back pain/injury, denies back problems, denies sciatica, denies knee/foot trouble, denies arthritis, or denies gout. When was patient's last Mammogram screening? N/A Last Colonoscopy: 2004 Milagro Lopez RN PHYSICAL EXAMINATION: General: The patient is 73 year old male, well nourished, well hydrated in no acute distress. The patient is oriented to time, place, and person. VITALS: Blood pressure 130/78, pulse 94, temperature 36.1 C (97 F), height 175.3 cm (5' 9), weight 70.8 kg (156 lb), SpO2 95%. Body mass index is 23.04 kg/m . Head: Normal cephalic, atraumatic Eyes: pupils are equally round, sclera are clear/anicteric, wearing glasses Neck is supple with no tracheal deviation Cardiac: normal heart sounds, regular Respiratory: Normal respiratory excursion and pattern. Abdominal exam: benign Extremities: no clubbing, cyanosis or edema. Neuro: non focal Psych: normal mood IMPRESSION: screening for colon cancer via colonoscopy PLAN: I have discussed the above with the patient. I have offered colonoscopy, possible biopsies I have explained the procedure to the patient. I have counseled the patient as to the risks of the procedure, including but not limited to: infection, bleeding, injury to any intrabdominal organs such as liver/spleen, perforation of the GI tract, inability to complete the procedure, complications of anesthesia, etc. - the patient understands. I have told patient to be off Plavix for two days prior to procedure. The patient wishes to proceed. I have answered all questions to the patient s satisfaction and the patient has no further questions. Diagnoses: (Z12.11) Screening for colon cancer (Z79.02) Antiplatelet or antithrombotic long-term use Gertrudis Ambrosio MD documented in this encounter [facility] 10-26-2023 Nurse Note Patient used restroom middle of pre procedure preparation, he reports his stool was semi solid and dark brown. He determined he should cancel procedure at this time and reschedule. Dr Ambrosio notified Dr Ambrosio here to see patient pre procedure, aware that patient was unable to complete prep yesterday due to nausea. Dr Ambrosio willing to proceed if patient wanted to, aware she may not be able to see well. Patient says he would like to proceed at this time. documented in this encounter [facility] 10-09-2023 Note HNO ID: [id number] Author: GERTRUDIS AMBROSIO MD Service: ? Author Type: Physician Type: Progress Notes Filed: 10/12/2023 12:27 Note Text: HISTORY AND PHYSICAL Will Marr 1950 REFERRING PHYSICIAN: [facility] CHIEF COMPLAINT: Consult (colonoscopy) HPI: The patient is a 73 year old male referred for endoscopy. [facility] states that he had a colonoscopy greater than 10 years ago. He presents for screening for colon cancer via colonoscopy. He does note occasional watery stools, about one episode per week. He states that his bowel movements are all over the chart - that is - many different colors. He denies blood in his stools. He had a bout of constipation in June but this resolved, he treated with miralax. He notes no colon cancer in his family He is referred by the [place] - referral number [id number] for colonoscopy for screening for colon cancer He has CAD with coronary artery stent last placed in 2004 - on aspirin and plavix PAST MEDICAL HISTORY Diagnosis Date Constipation Diabetes mellitus (HCC) Essential hypertension Hyperlipemia Myocardial infarct (HCC) Nephrolithiasis Recurrent UTI Urinary calculus PAST SURGICAL HISTORY Procedure Laterality Date PAST SURGICAL HISTORY OF coronary artery stent placed REMV CATARACT EXTRACAP,INSERT LENS Current Outpatient Medications Medication Sig glucose 4 gram chewable tablet 16 g. insulin glargine-yfgn (SEMGLEE) 100 unit/mL (3 mL) insulin pen INJECT 15 UNITS SUBCUTANEOUSLY AT BEDTIME FOR DIABETES (DISCARD PEN 28 DAYS AFTER FIRST USE) DOSE CHANGE rosuvastatin (CRESTOR) 40 mg tablet 40 mg. alogliptin (NESINA) 25 mg tab Take 25 mg by mouth once daily. clopidogrel (PLAVIX) 75 mg tablet Take 75 mg by mouth once daily. aspirin 81 mg cap 81 mg. dulaglutide (TRULICITY) 0.75 mg/0.5 mL pen injector INJECT CONTENT OF 1 PEN SUBCUTANEOUSLY EVERY WEEK : KEEP REFRIGERATED, HOWEVER, MAY BE KEPT AT ROOM TEMPERATURE FOR UP TO 14 DAYS metFORMIN (GLUCOPHAGE) 1,000 mg tablet 1,000 mg. metoprolol succinate ER (TOPROL XL) 25 mg 24 hr tablet Take 1 tablet by mouth once daily. venlafaxine (EFFEXOR) 75 mg tablet 150 mg. PEG 4191-Ogjxvbskjbq-Azw C (MOVIPREP) 100-7.5-2.691 gram TAKE BEFORE PROCEDURE BY MOUTH ONE TIME DIRECTED ON GI BOWEL PREP INSTRUCTION SHEET (Patient not taking: Reported on 10/09/2023) ciprofloxacin HCl (CIPRO) 500 mg tablet Take by mouth. (Patient not taking: Reported on 10/09/2023) glipiZIDE (GLUCOTROL) 5 mg tablet Take 1 tablet by mouth daily before breakfast. (Patient not taking: Reported on 10/09/2023) oxyCODONE-acetaminophen (PERCOCET) 5-325 mg tablet Take by mouth. (Patient not taking: Reported on 10/09/2023) No current facility-administered medications for this visit. ALLERGIES: Patient has no known allergies. PERSONAL HISTORY: Social History Tobacco Use Smoking status: Former Types: Cigars Smokeless tobacco: Never Vaping Use Vaping Use: Never used Substance Use Topics Alcohol use: Yes Comment: occasional Drug use: Never FAMILY HISTORY Problem Relation Age of Onset Diabetes Mother Hodgkin Lymphoma Mother The review of systems data was entered by the nurse and reviewed by me Nursing Notes: Milagro Lopez RN 10/09/2023 10:52 AM Signed REVIEW OF SYSTEMS: General: The patient NOTES fatigue, denies weight loss, denies weight gain, denies feeling hot, and denies feelings of cold. Eyes: The patient denies glaucoma, denies eye injury/surgery, wears glasses or contacts. Ear/Nose/Throat: The patient denies allergies, denies hayfever, denies ear infections, and denies bloody noses. Cardiovascular: The patient denies chest pain, NOTES heart disease, NOTES high blood pressure,NOTES cardiac stent, NOTES prior heart attack, denies irregular heart beat, denies high cholesterol, NOTES poor circulation, denies heart failure, other cardiac issues, NOTES claudication, denies cold feet, denies peripheral arterial stent. Respiratory: The patient denies tuberculosis, denies pneumonia, denies frequent cough, denies pulmonary embolism, denies shortness of breath, and denies coughing up blood. Gastrointestinal: The patient denies difficulty swallowing, denies acid reflux, denies ulcers, denies vomiting, denies jaundice/hepatitis, denies gallbladder problems, NOTES black or tarry stools, denies hemorrhoids, denies bleeding from rectum, denies diverticulitis, NOTES constipation, denies diarrhea, denies loss of stool control, and denies hernias. Kidney/Bladder: The patient NOTES kidney stones, NOTES urine infections, and denies bloody urine. Skin: The patient denies a history of skin cancer, denies bleeding/changing moles, and denies a history of skin rash. Neurologic: The patient denies a history of epilepsy/convulsions, denies headaches, denies head/spinal injuries, and denies stroke/TIA. Psychiatric: The patient denies psychiatric medications, pablo (more content not included)... [facility] 10-09-2023 History of Presen t illness Narrative HISTORY AND PHYSICAL Will Marr 1950 REFERRING PHYSICIAN: [facility] CHIEF COMPLAINT: Consult (colonoscopy) HPI: The patient is a 73 year old male referred for endoscopy. Will states that he had a colonoscopy greater than 10 years ago. He presents for screening for colon cancer via colonoscopy. He does note occasional watery stools, about one episode per week. He states that his bowel movements are all over the chart - that is - many different colors. He denies blood in his stools. He had a bout of constipation in June but this resolved, he treated with miralax. He notes no colon cancer in his family He is referred by the [place] - referral number [id number] for colonoscopy for screening for colon cancer He has CAD with coronary artery stent last placed in 2004 - on aspirin and plavix PAST MEDICAL HISTORY Diagnosis Date Constipation Diabetes mellitus (HCC) Essential hypertension Hyperlipemia Myocardial infarct (HCC) Nephrolithiasis Recurrent UTI Urinary calculus PAST SURGICAL HISTORY Procedure Laterality Date PAST SURGICAL HISTORY OF coronary artery stent placed REMV CATARACT EXTRACAP,INSERT LENS Current Outpatient Medications Medication Sig glucose 4 gram chewable tablet 16 g. insulin glargine-yfgn (SEMGLEE) 100 unit/mL (3 mL) insulin pen INJECT 15 UNITS SUBCUTANEOUSLY AT BEDTIME FOR DIABETES (DISCARD PEN 28 DAYS AFTER FIRST USE) DOSE CHANGE rosuvastatin (CRESTOR) 40 mg tablet 40 mg. alogliptin (NESINA) 25 mg tab Take 25 mg by mouth once daily. clopidogrel (PLAVIX) 75 mg tablet Take 75 mg by mouth once daily. aspirin 81 mg cap 81 mg. dulaglutide (TRULICITY) 0.75 mg/0.5 mL pen injector INJECT CONTENT OF 1 PEN SUBCUTANEOUSLY EVERY WEEK : KEEP REFRIGERATED, HOWEVER, MAY BE KEPT AT ROOM TEMPERATURE FOR UP TO 14 DAYS metFORMIN (GLUCOPHAGE) 1,000 mg tablet 1,000 mg. metoprolol succinate ER (TOPROL XL) 25 mg 24 hr tablet Take 1 tablet by mouth once daily. venlafaxine (EFFEXOR) 75 mg tablet 150 mg. PEG 0732-Kfknvkdxwiq-Vse C (MOVIPREP) 100-7.5-2.691 gram TAKE BEFORE PROCEDURE BY MOUTH ONE TIME DIRECTED ON GI BOWEL PREP INSTRUCTION SHEET (Patient not taking: Reported on 10/09/2023) ciprofloxacin HCl (CIPRO) 500 mg tablet Take by mouth. (Patient not taking: Reported on 10/09/2023) glipiZIDE (GLUCOTROL) 5 mg tablet Take 1 tablet by mouth daily before breakfast. (Patient not taking: Reported on 10/09/2023) oxyCODONE-acetaminophen (PERCOCET) 5-325 mg tablet Take by mouth. (Patient not taking: Reported on 10/09/2023) No current facility-administered medications for this visit. ALLERGIES: Patient has no known allergies. PERSONAL HISTORY: Social History Tobacco Use Smoking status: Former Types: Cigars Smokeless tobacco: Never Vaping Use Vaping Use: Never used Substance Use Topics Alcohol use: Yes Comment: occasional Drug use: Never FAMILY HISTORY Problem Relation Age of Onset Diabetes Mother Hodgkin Lymphoma Mother The review of systems data was entered by the nurse and reviewed by ct Nursing Notes: Milagro Lopez RN 10/09/2023 10:52 AM Signed REVIEW OF SYSTEMS: General: The patient NOTES fatigue, denies weight loss, denies weight gain, denies feeling hot, and denies feelings of cold. Eyes: The patient denies glaucoma, denies eye injury/surgery, wears glasses or contacts. Ear/Nose/Throat: The patient denies allergies, denies hayfever, denies ear infections, and denies bloody noses. Cardiovascular: The patient denies chest pain, NOTES heart disease, NOTES high blood pressure,NOTES cardiac stent, NOTES prior heart attack, denies irregular heart beat, denies high cholesterol, NOTES poor circulation, denies heart failure, other cardiac issues, NOTES claudication, denies cold feet, denies peripheral arterial stent. Respiratory: The patient denies tuberculosis, denies pneumonia, denies frequent cough, denies pulmonary embolism, denies shortness of breath, and denies coughing up blood. Gastrointestinal: The patient denies difficulty swallowing, denies acid reflux, denies ulcers, denies vomiting, denies jaundice/hepatitis, denies gallbladder problems, NOTES black or tarry stools, denies hemorrhoids, denies bleeding from rectum, denies diverticulitis, NOTES constipation, denies diarrhea, denies loss of stool control, and denies hernias. Kidney/Bladder: The patient NOTES kidney stones, NOTES urine infections, and denies bloody urine. Skin: The patient denies a history of skin cancer, denies bleeding/changing moles, and denies a history of skin rash. Neurologic: The patient denies a history of epilepsy/convulsions, denies headaches, denies head/spinal injuries, and denies stroke/TIA. Psychiatric: The patient denies psychiatric medications, denies depression, and denies voices, denies substance abuse. Endocrine: The patient denies thyroid disorders, NOTES diabetes, and denies hormonal problems. Hematologic: The patient denies a history of bruising, denies bleeding, and denies anemia, denies blood clots. Infections: The patient denies a history of measles and mumps, denies rheumatic fever, and denies sexually transmitted diseases. Musculoskeletal: The patient denies back pain/injury, denies back problems, denies sciatica, denies knee/foot trouble, denies arthritis, or denies gout. When was patient's last Mammogram screening? N/A Last Colonoscopy: 2004 Milagro Lopez RN PHYSICAL EXAMINATION: General: The patient is 73 year old male, well nourished, well hydrated in no acute distress. The patient is oriented to time, place, and person. VITALS: Blood pressure 130/78, pulse 94, temperature 36.1 C (97 F), height 175.3 cm (5' 9), weight 70.8 kg (156 lb), SpO2 95%. Body mass index is 23.04 kg/m . Head: Normal cephalic, atraumatic Eyes: pupils are equally round, sclera are clear/anicteric, wearing glasses Neck is supple with no tracheal deviation Cardiac: normal heart sounds, regular Respiratory: Normal respiratory excursion and pattern. Abdominal exam: benign Extremities: no clubbing, cyanosis or edema. Neuro: non focal Psych: normal mood Assessment IMPRESSION: screening for colon cancer via colonoscopy PLAN: I have discussed the above with the patient. I have offered colonoscopy, possible biopsies I have explained the procedure to the patient. I have counseled the patient as to the risks of the procedure, including but not limited to: infection, bleeding, injury to any intrabdominal organs such as liver/spleen, perforation of the GI tract, inability to complete the procedure, complications of anesthesia, etc. - the patient understands. I have told patient to be off Plavix for two days prior to procedure. The patient wishes to proceed. I have answered all questions to the patient s satisfaction and the patient has no further questions. My clinic staff has educated the patient as to the colon cleansing regimen and I have prescribed Golytely for the colon cleansing solution. The patient will be scheduled for the procedure at [facility]. Diagnoses: (Z12.11) Screening for colon cancer (Z79.02) Antiplatelet or antithrombotic long-term use I have confirmed and edited as necessary, the PFSH and ROS obtained by others. Consultation requested by Administration at [place] for an opinion regarding patient's screening for colon cancer. My final recommendations will be communicated back to the requesting physician by way of shared Medical record or letter to requesting physician via US mail. Medical Decision Making: Risk: Low: Low risk from testing/treatment Medical Decision Making Level: 2 - Straightforward Gertrudis Ambrosio MD documented in this encounter [facility] 10-09-2023 Nurse Note REVIEW OF SYSTEMS: General: The patient NOTES fatigue, denies weight loss, denies weight gain, denies feeling hot, and denies feelings of cold. Eyes: The patient denies glaucoma, denies eye injury/surgery, wears glasses or contacts. Ear/Nose/Throat: The patient denies allergies, denies hayfever, denies ear infections, and denies bloody noses. Cardiovascular: The patient denies chest pain, NOTES heart disease, NOTES high blood pressure,NOTES cardiac stent, NOTES prior heart attack, denies irregular heart beat, denies high cholesterol, NOTES poor circulation, denies heart failure, other cardiac issues, NOTES claudication, denies cold feet, denies peripheral arterial stent. Respiratory: The patient denies tuberculosis, denies pneumonia, denies frequent cough, denies pulmonary embolism, denies shortness of breath, and denies coughing up blood. Gastrointestinal: The patient denies difficulty swallowing, denies acid reflux, denies ulcers, denies vomiting, denies jaundice/hepatitis, denies gallbladder problems, NOTES black or tarry stools, denies hemorrhoids, denies bleeding from rectum, denies diverticulitis, NOTES constipation, denies diarrhea, denies loss of stool control, and denies hernias. Kidney/Bladder: The patient NOTES kidney stones, NOTES urine infections, and denies bloody urine. Skin: The patient denies a history of skin cancer, denies bleeding/changing moles, and denies a history of skin rash. Neurologic: The patient denies a history of epilepsy/convulsions, denies headaches, denies head/spinal injuries, and denies stroke/TIA. Psychiatric: The patient denies psychiatric medications, denies depression, and denies voices, denies substance abuse. Endocrine: The patient denies thyroid disorders, NOTES diabetes, and denies hormonal problems. Hematologic: The patient denies a history of bruising, denies bleeding, and denies anemia, denies blood clots. Infections: The patient denies a history of measles and mumps, denies rheumatic fever, and denies sexually transmitted diseases. Musculoskeletal: The patient denies back pain/injury, denies back problems, denies sciatica, denies knee/foot trouble, denies arthritis, or denies gout. When was patient's last Mammogram screening? N/A Last Colonoscopy: 2004 Milagro Lopez RN documented in this encounter [facility] Evaluation note No assessment inform ation available [facility] Work Phone: Evaluation note Diagnosis Screening for colon cancer Special screening for malignant neoplasms, colon Antiplatelet or antithrombotic long-term use Encounter for long-term (current) use of antiplatelets/antithrombotics [facility] Screening for colon cancer- Primary Special screening for malignant neoplasms, colon [facility] Outpatient Procedure (Routine) - Authorized Specialty Diagnoses / Procedures Referred By Contmarie t Referred To Contact [facility] Diagnoses Screening for colon cancer Procedures COLONOSCOPY SCREENING COLONOSCOPY FLX DX W/COLLJ SPEC WHEN Gertrudis Stark MD [address] [place] [address] [facility] [address] [place] [address] Referral ID Status Reason Start Date Expiration Date Visits Requested Visits Authorized [id number] Authorized Auto-Generat ed Referral 3 04/06/2024 1 1 [facility] for visit Narrative* Outpatient Procedure (Routine) - Authorized Specialty Diagnoses / Procedures Referred By Vlad schaefer Referred To Contact [facility] Diagnoses Screening for colon cancer Procedures COLONOSCOPY SCREENING COLONOSCOPY FLX DX W/COLLJ SPEC WHEN Gertrudis Stark MD [address] [address] [facility] [address] [place] [address] Referral ID Status Reason Start Date Expiration Date Visits Requested Visits Authorized [id number] Authorized Auto-Generat ed Referral 3 04/06/2024 1 1 [facility] Chief Complaint and Reason for Visit Chief Complaint CONSTIPATION Chief Complaint back/abd pain Advance Directives No Advanced Directives Records Found Advance Directive Response Recorded Date/ Time Living Will No August 08, 2 022 1:57am Power of Otr Truck Driver No August 08, 2022 1:57am Advance Directive Response Recorded Date/ Time Living Will Yes May 04, 2 023 6:35am Power of Otr Truck Driver Yes May 04, 2023 6:35am Name of Medical Power of Otr Truck Driver Darci Marquez May 04, 2023 6:35am Summary Purpose Family History No Family History Records FoundNo Family History Records Found Additional Source Comments Goals (unrecognized section and content) Goals may be documented in a n alternate sectionGoals may be documented in an alternate section (unrecognized sect ion and content) No Status Records FoundNo Status Records Found INFORMATION SOURCE (unrecogn ized section and content) DATE CREATED AUTHOR 08/18/2022 [facility] DATE CREATED AUTHOR AUTHOR'S ORGANIZ ATION 12/06/2023 [facility] [facility] Care Teams (unrecognized sec tion and content) Team Status: Active Member Role Status Dates [facility] Family Provider Active [facility] Primary Care Provider Active Team Status: Inactive Member Role Status Dates [facility] Primary Care Provider Active Dr. Hansel Ware MD Emergency Provider Active Insurance Customer Service Specialist Relationship Specialty Start Date End Date [facility] [address] [place], [place] [id number] PCP - General 10/09/23 Insurance Customer Service Specialist Relationship Specialty Start Date End Date Center, [facility] [address] [place] [address] PCP - General 10/09/23 Insurance Customer Service Specialist Relationship Specialty Start Date End Date [facility], [facility] [address] [place] [address] PCP - General 10/09/23 Source Comments (unrecognize d section and content) In the event this informatio n is protected by the Federal Confidentiality of Alcohol and Drug Abuse Patient Records regulations: The Federal rules restrict any use of the information to criminally investigate or prosecute any alcohol or drug abuse patient.[facility] the event this information is protected by the Federal Confidentiality of Alcohol and Drug Abuse Patient Records regulations: The Federal rules restrict any use of the information to criminally investigate or prosecute any alcohol or drug abuse patient.[facility] the event this information is protected by the Federal Confidentiality of Alcohol and Drug Abuse Patient Records regulations: The Federal rules restrict any use of the information to criminally investigate or prosecute any alcohol or drug abuse patient.[facility] Reason for Visit (unrecogniz ed section and content) Reason Comments Consult colonoscopy Specialty Diagnoses / Procedures Referred By Vlad t Referred To Contact General Surgery / GENERAL SURGERY Diagnoses Encounter for screening for malignant neoplasm of colon COLON CONSULT - [place] REFERRING - IN SCANNED DOC, [facility] printed CT scan report, no prior colonoscopy noted. mjs, Procedures OFFICE/OUTPATIENT [facility] MDM 60 MINUTES NEW DDI PATIENT Center, [facility] [address] [place] [place] [address] Gertrudis Ambrosio MD [address] [place] [address] Referral ID Status Reason Start Date Expiration Date Visits Re quested Visits Authorized [id number] Closed 08/06/2023 02/02/2024 1 1 Reason Comments 10/26/2023 [facility] FOR RECORDS PERTAINING TO PATIENTS WHO ARE OR HAVE BEEN ENROLLED IN A CHEMICAL DEPENDENCY/SUBSTANCEABUSE PROGRAM, SOME INFORMATION MAY BE OMITTED. This clinical summary was aggregated from multiple sources. Caution should be exercised in using it in the provision of clinical care. This summary normalizes information from multiple sources, and as a consequence, information in this document may materially change the coding, format and clinical context of patient data. In addition, data may be omitted in some cases. CLINICAL DECISIONS SHOULD BE BASED ON THE PRIMARY CLINICAL RECORDS. [employer] provides no warranty or guarantee of the accuracy or completeness of information in this document.
[2025-04-18] MEDS: Heparin Injection (Vial) 5,000 UNIT/ML VIAL 4000 UNIT IV (08:55)
[2025-04-18 08:56] VITALS: O2SAT 99
--- NOTE | 2025-04-18 08:56 | EKG12_ITS ---
Test Reason : STEMI Blood Pressure : */* mmHG Vent. Rate : 109 BPM Atrial Rate : 109 BPM P-R Int : 160 ms QRS Dur : 100 ms QT Int : 336 ms P-R-T Axes : 54 -35 95 degrees QTcB Int : 452 ms Critical Test Result: STEMI Sinus tachycardia Left axis deviation ST elevation consider inferior injury or acute infarct ACUTE PR / STEMI Consider right ventricular involvement in acute inferior infarct Abnormal ECG Confirmed by CAROLINE ARIZMENDI, MARY ([id number]), editorial cartoonist JOSH GALLARDO ([id number]) on 04/20/2025 1:02:06 PM Referred By: Charlotte Villaseñor Confirmed By: MARY VELAZQUEZ MD
--- NOTE | 2025-04-18 08:56 | RAD_ITS ---
PROCEDURE: CHEST 1 VIEW (PORTABLE) 04/18/2025 REASON FOR EXAM: CHEST PAIN TECHNIQUE: Frontal view of the chest. COMPARISON: None. FINDINGS: Hardware: Monitor electrodes overlie the chest. Heart: No cardiomegaly. Lungs: Clear. No pleural effusion or pneumothorax. Bones: No acute bony abnormalities. RAD/Chest 1 View (Portable) IMPRESSION: No acute cardiopulmonary abnormalities. Reading Location: [id number]
--- NOTE | 2025-04-18 08:58 | ED.VIS.CHEST ---
HPI History of Present Illness Chief Complaint: Chest Pain Informant: patient and EMS Narrative Narrative: 74-year-old male states he woke up in the middle of the night with chest pressure, he called EMS this morning when it was persistent. They sent a prehospital EKG that was concerning to me for a STEMI so the team was activated prior to the EMS call. They gave 4 baby aspirin, and 1 nitroglycerin. Before the nitroglycerin his blood pressure was 106 systolic and afterwards it was 96 systolic and the patient states that his comfort was a little bit better but still an 8/10 right now. Associated nausea, no other associated symptoms or radiation of the discomfort from his substernal chest. Remote stents, he takes aspirin every day but no other antiplatelet or anticoagulant medications. [facility] Medical History Myocardial infarct Hyperlipidemia Diabetes Hypertension Home Medications ?Medication ?Instructions ?Recorded ?Last Taken ?Type aspirin 325 mg tablet,delayed 81 mg PO DAILY 10/27/17 Unknown History release metoprolol tartrate 25 mg tablet 25 mg PO BID 10/27/17 Unknown History simvastatin 80 mg tablet (Zocor) 40 mg PO QHS 10/27/17 Unknown History venlafaxine 75 mg tablet 75 mg PO BID 10/27/17 Unknown History dulaglutide 0.75 mg/0.5 mL 0.75 mg subcut QWEEK 05/04/23 Unknown History subcutaneous pen injector glipizide 5 mg tablet 5 mg PO DAILY 05/04/23 Unknown History metformin 1,000 mg tablet 1,000 mg PO BID 05/04/23 Unknown History insulin glargine-yfgn 100 unit/mL 15 unit subcut QDAY 04/18/25 Unknown History (3 mL) subcutaneous pen rosuvastatin 40 mg tablet (Crestor) 40 mg PO DAILY 04/18/25 Unknown History venlafaxine 150 mg 300 mg PO DAILY 04/18/25 Unknown History capsule,extended release 24 hr (Effexor XR) Allergy/AdvReac Type Severity Reaction Status Date / Time No Known Allergies Allergy Verified 05/04/23 06:37 Surgical History History of coronary artery stent placement Social History Smoking Status: Former smoker ROS ROS ED Constitutional Constitutional ED: Reports malaise; Denies chills or fever(s) Eyes Eyes: Denies change in vision or diplopia ENT ENT ED: Denies rhinorrhea or sore throat Cardiovascular Cardiovascular: Reports as per HPI and chest pain; Denies palpitations Respiratory/Chest Respiratory/Chest: Denies cough or dyspnea Gastrointestinal Gastrointestinal: Reports abdominal pain and nausea; Denies diarrhea or vomiting Genitourinary Genitourinary ED: Denies dysuria or hematuria Musculoskeletal Musculoskeletal: Denies back pain or neck pain Integumentary Denies abscess or rash Neurologic Neurologic: Denies headache(s), paresthesias or weakness Psychiatric Psychiatric: Denies anxiety or suicidal thoughts EXAM Physical Exam Const Vital Signs: 04/18/25 08:51 04/18/25 08:55 04/18/25 08:56 Temperature 97.5 F L Temperature Source Oral Pulse Rate 109 H Respiratory Rate 14 Respiratory Effort Normal Blood Pressure 99/77 Blood Pressure Mean 84 Pulse Ox 100 99 Oxygen Delivery Method Room Air Room Air 04/18/25 09:11 Temperature Temperature Source Pulse Rate 103 H Respiratory Rate 16 Respiratory Effort Blood Pressure 95/73 Blood Pressure Mean 80 Pulse Ox 100 Oxygen Delivery Method Room Air Positive well nourished and well developed Constitutional Narrative: Well-appearing, conversive in full sentences General Appearance ED: well developed and NAD HEENT Reports moist mucous membranes normocephalic and atraumatic Eyes PERRL and EOMs intact bilaterally Neck full ROM and supple Resp normal respiratory effort and clear to auscultation bilaterally Cardio regular rate, regular rhythm and no murmurs Rate: other Other Details: Mildly tachycardic Peripheral Pulses: pulses 2+ throughout GI non-tender and non-distended GI Narrative: Flat abdomen no pulsatile mass Auscultation: normoactive bowel sounds Palpation: soft Back/Spine no CVA tenderness General Back: other FROM Extremity normal to inspection General Extremety ED: Negative for edema, pulses abnormal or tenderness General Extremity: Negative for edema or pulses abnormal Neuro oriented x3, CN's II-XII intact bilaterally and no sensory deficits noted Sensorium / Orientation: awake and alert Motor Exam: strength 5/5 throughout Skin no rashes or lesions noted and no wounds Heart Score History: Highly Suspicious ECG: Significant ST-Depression Age: >/= 65 years Risk Factors: >/= 3 Risk Factors or History of CAD Troponin: >/=3 x Normal Limit Score: 10 MDM MDM MDM Narrative Medical decision making narrative: Patient doing relatively well here his blood pressure is 99/77, giving him IV fluid bolus, avoiding more nitroglycerin because his EKG is consistent with possible inferior wall/anterior septal STEMI, with ST elevation in 3 and aVF as well as deep depressions in V1-4. He has lateral reciprocal changes limb leads. 1 view chest x-ray shows narrow mediastinum on my interpretation and no other acute abnormality or signs of pulmonary edema. Discussed with Dr. Villaseñor, we activated the STEMI team and when they arrive they will take him to the [facility]. Lab Data Attestation: I reviewed the patient's lab results. Labs: Laboratory Results - last 24 hr 04/18/25 09:00 WBC 12.1 H RBC 5.28 Hgb 15.4 Hct 46.0 MCV 87.1 MCH 29.2 MCHC 33.5 RDW Std Deviation 40.9 RDW Coeff of Keshia 13.0 Plt Count 279 MPV 9.7 Immature Gran % (Auto) 0.500 Neut % (Auto) 54.0 Lymph % (Auto) 34.1 Sampson % (Auto) 8.3 Eos % (Auto) 2.5 Baso % (Auto) 0.6 Absolute Neuts (auto) 6.5 Absolute Lymphs (auto) 4.11 Nucleated RBC % 0 PT 12.7 INR 0.9 APTT 28.0 Sodium 137 Potassium 4.1 Chloride 95 L Carbon Dioxide 20.3 L Anion Gap 22 H BUN 13 Creatinine 1.03 Estim Creat Clear Calc 62.92 Est GFR (MDRD) Non-Af 76 BUN/Creatinine Ratio 12.1 Glucose 275 H Calcium 9.9 Troponin T High Sens 1953 H* Radiography Diagnostic Testing: Clinical Impression(s) from Imaging Studies Chest X-Ray 04/18/25 08:56 IMPRESSION: No acute cardiopulmonary abnormalities. Reading Location: [facility] Rhythm Strip Rhythm Strip: Sinus Tach Rate: 109 Ectopy: None EKG Initial EKG: Attestation: I personally reviewed and interpreted this EKG as follows: Interpretation: Sinus Rhythm, LAFB, S-T Elevation (Inferior) and S-T Depression (Anteroseptal) Comments: Consistent with inferior/anteroseptal STEMI Management Discussion w/another healthcare provider: Hospitalist and Job Developer ([facility]) Critical Care Time Critical Care Time: Yes Critical care time (excluding procedures): 30-74 minutes (37 min), Including time spent:, Discussing w/Patient &/or Family/Property Analyst, Discussing w/Consultants, Arranging Admission or Transfer and Performing Direct Patient Care at Bedside Discharge Plan Dx/Rx/DC Orders Clinical Impression: ST elevation (STEMI) myocardial infarction [facility] Discharge Date/Time: 04/18/25 09:15
[2025-04-18] MEDS: TICAGRELOR 90 MG TABLET 180 MG PO (09:08)
[2025-04-18 09:09] LABS: Hematocrit 46.0 % (40-54); Hemoglobin 15.4 g/dL (13.0-16.5); Immature Granulocytes Count 0.060 X10^3/uL (0.0-0.0); Mean Corp Hgb Conc 33.5 g/dL (32-36); Mean Corpuscular Volume 87.1 fL (80-94); Mean Platelet Vol. 9.7 fl (6.2-12.0); NRBC Flagged by Analyzer 0 % (0-5); Platelet Count 279 K/mm3 (150-450); RBC Distribution Width CV 13.0 % (11.6-14.6); RBC Distribution Width SD 40.9 fl (35.1-43.9); Red Blood Count 5.28 M/mm3 (4.6-6.2); White Blood Count 12.1 K/mm3 (4.4-11.0)
[2025-04-18] MEDS: 0.9% Normal Saline (1000mL) 1,000 ML 999 ML IV (09:09)
[2025-04-18 09:11] VITALS: BP 95/73; PULSE 103; RESP 16; O2SAT 100
[2025-04-18 09:19] LABS: Prothrombin Time (Protime)PT. 12.7 SECONDS (11.7-14.9)
[2025-04-18 09:20] LABS: Partial Thromboplast Time 28.0 Seconds (24.1-36.2)
--- OUTSIDE RECORDS SUMMARY | 2025-04-18 09:22 | XMS RPT_ITS | CCD ---
Author Organization [facility] Care Team Providers Care Contractor General Building Name Role Phone Dr. Hansel Ware Attending [facility], [place] Primary Care [facility], [facility] Primary Care Provider GERTRUDIS AMBROSIO Referring Unavailable [...] acid 4700 mg / polyethylene glycol 3350 482966 mg / potassium chloride 1015 mg / [...] daily. Take by mouth. polyethylene glycol 3350 45284 mg powder for oral solution (2 sources) [...] aftercare (5 sources) Patient encounter status; Translations: [long term care pharmacist (current) use of antithrombotics/a ntiplatelets] Onset: 10-26-2023 [...] Facility HISTORY PHYSICALon HISTORY PHYSICAL HNO ID: [id number] Author: GERTRUDIS AMBROSIO MD Service: General Surgery Author Type: Physician Type: H&P Filed: 10/26/2023 09:20 Note Text: HISTORY AND PHYSICAL Will Marr 1950 REFERRING PHYSICIAN: [facility] CHIEF COMPLAINT: Consult (colonoscopy) HPI: The [...] his family He is referred by the [place] - referral number [id number] for colonoscopy for screening for colon cancer [...] (EFFEXOR) 75 mg tablet 150 mg. PEG 7122-Farrmotogcw-Bp t C (MOVIPREP) 100-7.5-2.691 gram TAKE BEFORE [...] denies voices (more content not included)... Normal [facility] NURSING PROGon 10-26-2023 NURSING PROG HNO ID: [id number] Author: MAJO CHAVIS RN Service: ? Author Type: Registered Nurse Type: Nursing Progress Note Filed: 10/26/2023 09:28 Note Text: Patient used restroom middle of pre procedure preparation, he reports his stool was semi solid and dark brown. He determined he should cancel procedure at this time and reschedule. Dr Ambrosio notified [facility] NURSING PROG HNO ID: [id number] Author: MAJO CHAVIS RN Service: ? Author [...] would like to proceed at this time. [facility] CNOVon 10-09-2023 CNOV Office Visit (GENSWS) ---- WILL MARR ([id number]) 1950 M Date Time Provider Department 10/09/23 [...] AND PHYSICAL Will Marr 1950 REFERRING PHYSICIAN: [facility] CHIEF COMPLAINT: Consult (colonoscopy) HPI: The [...] his family He is referred by the [place] - referral number [id number] for colonoscopy for screening for colon cancer [...] (EFFEXOR) 75 mg tablet 150 mg. PEG 3195-Vcnyywnojmt-Vo t C (MOVIPREP) 100-7.5-2.691 gram TAKE BEFORE PROCEDURE BY MOUTH ONE TIME (more content not included)... Normal [facility] ---- WILL MARR ([id number]) 1950 M Date Time Provider Department 10/09/23 [...] AFTER FIRST USE) DOSE CHANGE - PEG 8025-Gkyjvfiknhe-Yt t C (MOVIPREP) 100-7.5-2.691 gram - rosuvastatin [...] Status:Closed by IVONE CHARLES on 12/05/23 Normal [facility] Absolute lymphocyte countOrd ered By: Hansel Ware on 05-04-2023 Lymphocytes Auto (Unsp spec) [#/Vol] 2.38 10*3/uL 0.83-4.51 [facility] Basophil percentageOrdered B y: Hansel Ware on 05-04-2023 Basophil percentage 10-25 SEEN /hpf 0-5 [facility] Basophils/100 WBC (Bld) 0.8 % 0-1 [facility] Chloride [Moles/Vol] 103 mmol/L 98-107 [facility] Eosinophils/100 WBC (Bld) 4.6 % 0-5 [facility] Glucose [Mass/Vol] 182 mg/dL 74-106 [facility] Comment on above: Fasting Glucose resu lt greater than or equal to 126 mg/dL suggests DIABETES MELLITUS per A.D.A. criteria. Neutrophils (Bld) [#/Vol] 4.5 10*3/uL 2.0-7.7 [facility] Neutrophils/100 WBC (Bld) 56.1 % 47-70 [facility] Potassium [Moles/Vol] 3.9 mmol/L 3.5-5.1 [facility] Sodium [Moles/Vol] 137 mmol/L 136-145 [facility] WBC (Bld) [#/Vol] 8.0 10*3/uL 4.4-11.0 [facility] Bilirubin Test strip Ql (U)O rdered By: Hansel Ware on 05-04-2023 Bilirubin Ql (U) 1 mg/dL Negative [facility] Comment on above: COLOR OF URINE MAY A FFECT DIPSTICK RESULTS. Blood erythrocytes count (nu mber/volume)Ordered By: Hansel Ware on 05-04-2023 RBC (Bld) [#/Vol] 5.14 10*6/uL 4.6-6.2 [facility] Blood hemoglobin measurement (mass/volume)Ordered By: Hansel Ware on 05-04-2023 Hemoglobin (Bld) [Mass/Vol] 15.3 g/dL 13.0-16.5 [facility] Blood lymphocytes/100 leukoc ytesOrdered By: Hansel Ware on 05-04-2023 Lymphocytes/100 WBC (Bld) 29.8 % 19-41 [facility] Blood monocytes/100 leukocyt esOrdered By: Hansel Ware on 05-04-2023 Monocytes/100 WBC (Bld) 8.4 % 0-10 [facility] Blood platelet mean volumeOr dered By: Hansel Ware on 05-04-2023 Platelet mean volume (Bld) [Entitic vol] 8.9 fL 6.2-12.0 [facility] Determination of erythrocyte mean corpuscular volume (MCV)Ordered By: Hansel Ware on 05-04-2023 MCV (RBC) [Entitic vol] 85.6 fL 80-94 [facility] Hematocrit Auto (Bld) [Volum e fraction]Ordered By: Hansel Ware on 05-04-2023 Hematocrit (Bld) [Volume fraction] 44.0 % 40-54 [facility] Ketones Test strip Ql (U)Ord ered By: aHnsel Ware on 05-04-2023 Ketones Ql (U) 15 mg/dl Negative [facility] Laboratory - Chemistry and C hemistry - challengeOrdered By: Hansel Ware on 05-04-2023 CO2 [Moles/Vol] 24.0 mmol/L 21.0-32.0 [facility] Urea nitrogen/Creatinine [Mass ratio] 15.7 mg/mg 10-20 [facility] - Hematology and Cell countsOrdered By: Hansel Ware on 05-04-2023 Erythrocyte distribution width (RBC) [Entitic vol] 39.0 fL 35.1-43.9 [facility] Erythrocyte distribution width (RBC) [Ratio] 12.6 % 11.6-14.6 [facility] Immature granulocytes/100 WBC (Bld) 0.300 % 0.0-0.9 [facility] Comment on above: IG% - Immature Granu locytes (promyelocytes, myelocytes and metamyelocytes) > 1% indicates that a LEFT SHIFT is Present. MCH (RBC) [Entitic mass] 29.8 pg 27.0-32.0 [facility] Nucleated RBC/100 WBC (Bld) [Ratio] 0 % 0-5 [facility] MCHC Auto (RBC) [Mass/Vol]Or dered By: Hansel Ware on 05-04-2023 MCHC (RBC) [Mass/Vol] 34.8 g/dL 32-36 [facility] Mucus LM Ql (Urine sed)Order ed By: Hansel Ware on 05-04-2023 Mucus Ql (Urine sed) 0 SEEN /hpf [facility] Nitrite Test strip Ql (U)Ord ered By: Hansel Ware on 05-04-2023 Nitrite Ql (U) Positive Negative [facility] No Panel InformationOrdered By: Hansel Ware on 05-04-2023 Estimated Creatinine Clearance Calc 58.06 ml/min [facility] Estimated GFR (MDRD) Amer 80 mL/min >60 [facility] Comment on above: GFR Calc Estimated GFR (MDRD) Non-Af Amer 66 mL/min >60 [facility] Comment on above: Non- GFR Calc Platelets bldOrdered By: Rajan Ware on 05-04-2023 Platelets (Bld) [#/Vol] 250 10*3/uL 150-450 [facility] Protein Test strip Ql (U)Ord ered By: Hansel Ware on 05-04-2023 Protein Ql (U) 100 mg/dl Negative [facility] Serum or plasma calcium kaden urement (mass/volume)Ordered By: Hansel Ware on 05-04-2023 Calcium [Mass/Vol] 9.8 mg/dL 8.5-10.1 [facility] Serum or plasma creatinine m easurement (mass/volume)Ordered By: Hansel Ware on 05-04-2023 Creatinine [Mass/Vol] 1.15 mg/dL 0.70-1.30 [facility] Comment on above: The validity of the calculated GFR & GFRAA in patients over 70 years has not been determined. Clinical correlation is essential. Serum or plasma urea nitroge n measurement (mass/volume)Ordered By: Hansel Ware on 05-04-2023 Urea nitrogen [Mass/Vol] 18 mg/dL 7-18 [facility] Squamous epithelial cells de tection in urine sediment by light microscopyOrdered By: Hansel Ware on 05-04-2023 Epithelial cells.squamous LM Ql (Urine sed) 0 SEEN /hpf 0-5 [facility] Thin prep Papanicolaou smear with manual screeningOrdered By: Hansel Ware on 05-04-2023 Thin prep Papanicolaou smear with manual screening 10 5-15 [facility] Urine blood detectionOrdered By: Hansel Ware on 05-04-2023 RBC Ql (U) 250 /ul Negative [facility] RBC Ql (U) > 100 SEEN /hpf 0-5 [facility] Urine clarityOrdered By: Rajan Waer on 05-04-2023 Clarity (U) Cloudy Clear [facility] Urine color determinationOrd ered By: Hansel Ware on 05-04-2023 Color (U) Yellow Yellow [facility] Urine glucose detectionOrder ed By: Hansel Ware on 05-04-2023 Glucose Ql (U) 100 mg/dl Normal [facility] Urine leukocyte esterase det ection by dipstickOrdered By: Hansel Ware on 05-04-2023 Leukocyte esterase Test strip Ql (U) 100 /ul Negative [facility] Urine pHOrdered By: Hansel Ware on 05-04-2023 pH (U) 5.0 [pH] 5.0 - 8.0 [facility] Urine sediment bacteria coun t by microscopy (number/high power field)Ordered By: Hansel Ware on 05-04-2023 Bacteria LM.HPF (Urine sed) [#/Area] 3 /[HPF] None Seen [facility] Urine specific gravity measu rementOrdered By: Hansel Ware on 05-04-2023 Specific gravity (U) [Rel density] 1.025 1.002-1.030 [facility] Urobilinogen Auto test strip Ql (U)Ordered By: Hansel Ware on 05-04-2023 Urobilinogen Ql (U) 4 mg/dl Normal [facility] Emergency Department Summary on 08-08-2022 Emergency Department Summary [facility] Medical Records Department [address] [place] [address] Emergency Department Summary 08/08/22 MR#: [id number] Acct: [id number] Name: WILL MARR Rep #: [id number] : 1950 72 From: Hansel Ware MD PCP: [facility] Status:REG ER Location: ED HPI HPI - [...] but he ran out 4 days ago. [facility] Medical History Diabetes Hyperlipidemia Hypertension Myocardial infarct [...] Method [ (more content not included)... Normal [facility] Vital Signs Date Time Vital Sign Value Performing Clinician Faci lity 10-09-2023 10:46-0500 Body height 175.3 cm Gertrudis Ambrosio MD Work Phone: [facility] 10-09-2023 10:46-0500 Body temperature 97 [degF] Gertrudis Ambrosio MD Work Phone: [facility] 10-09-2023 10:46-0500 Body weight 70.76 kg Gertrudis Ambrosio MD Work Phone: [facility] 10-09-2023 10:46-0500 Diastolic blood pressure 78 mm[Hg] Gertrudis Ambrosio MD Work Phone: [facility] 10-09-2023 10:46-0500 Heart rate 94 /min Gertrudis Ambrosio MD Work Phone: [facility] 10-09-2023 10:46-0500 SaO2% (BldA) [Mass fraction] 95 % Gertrudis Ambrosio MD Work Phone: [facility] 10-09-2023 10:46-0500 Systolic blood pressure 130 mm[Hg] Gertrudis Ambrosio MD Work Phone: [facility] 05-04-2023 09:21-0400 Diastolic blood pressure 62 mm[Hg] [facility] 05-04-2023 09:21-0400 Heart rate 74 /min [facility] 05-04-2023 09:21-0400 Respiratory rate 16 /min [facility] 05-04-2023 09:21-0400 SaO2% (BldA) [Mass fraction] 99 % [facility] 05-04-2023 09:21-0400 Systolic blood pressure 118 mm[Hg] [facility] 05-04-2023 06:33-0400 Body height 175.26 cm [facility] 05-04-2023 06:33-0400 Body mass index (BMI) [Ratio] 23.6 kg/m2 [facility] 05-04-2023 06:33-0400 Body temperature 96.3 [degF] [facility] 05-04-2023 06:33-0400 Body weight 72.57 kg [facility] 08-08-2022 06:39-0500 Diastolic blood pressure 86 mm[Hg] [facility] Work Phone: 08-08-2022 06:39-0500 Heart rate 85 /min [facility] Work Phone: 08-08-2022 06:39-0500 Respiratory rate 16 /min [facility] Work Phone: 08-08-2022 06:39-0500 SaO2% (BldA) [Mass fraction] 100 % [facility] Work Phone: 08-08-2022 06:39-0500 Systolic blood pressure 149 mm[Hg] [facility] Work Phone: 08-08-2022 06:27-0500 Inhaled oxygen flow rate 2 L/min [facility] Work Phone: 08-08-2022 06:26-0500 Body temperature 98.6 [degF] [facility] Work Phone: 08-08-2022 01:55-0500 Body height 175.26 cm [facility] Work Phone: 08-08-2022 01:55-0500 Body mass index (BMI) [Ratio] 24 kg/m2 [facility] Work Phone: 08-08-2022 01:55-0500 Body weight 73.8 kg [facility] Work Phone: Encounters Encounter Date Encounter Type Care Provider Facility Start: 10-26-2023 ambulatory GERTRUDIS AMBROSIO [facility] ty:[facility] Start: 10-26-2023 End: 10-26-2023 Subsequent hospital visit by physician Gertrudis Ambrosio MD Work Phone: Ambulatory Surgery Comment on above: Screening for colon cancer [Z12.11] Start: 10-09-2023 Telephone encounter Gertrudis Allred MD Work Phone: General Surgery Comment on above: 10/26/2023 [facility] Start: 10-09-2023 End: 10-09-2023 ambulatory GERTRUDIS AMBROSIO Facility:[facility] Start: 10-09-2023 End: 10-09-2023 Patient encounter procedure Gertrudis Ambrosio MD Work Phone: General Surgery Comment on above: Screening for colon cancer; Antiplatelet or antithrombotic long-term use Start: 05-04-2023 End: 05-04-2023 Emergency department patient visit [facility] Work Phone: Start: 08-08-2022 End: 08-08-2022 Emergency department patient visit Dr. Hansel Ware Facility:[facility] Start: 08-08-2022 End: 08-08-2022 Emergency department patient visit [facility] Procedures Date Procedure Procedure Detail Performing Clinician Start: 05-04-2023 Computed tomography of abdomen and pelvis with intravenous contrast Plan of Treatment Date Care Activity Detail Author Start: 07-27-2025 Urine microalbumin profile DTaP,Tdap,Td Vaccine (3 - Td or Tdap) [facility] Start: 08-27-2023 Advance Directive Discussion Advance Directive Discussion [facility] Start: 08-27-2023 Behavioral Health Screening Behavioral Health Screening [facility] Start: 08-27-2023 Depression Assessment Depression Ass essment [facility] Start: 05-04-2023 Bacteria identified in Urine by Culture Urine Culture [facility] Start: 05-04-2023 [facility] Start: 04-27-2023 Covid-19 Vaccine () Covid-19 Vaccine () [facility] Start: 2010 RSV Vaccine (1 - 1-d ose 60+ series) RSV Vaccine (1 - 1-dose 60+ series) [facility] Start: 1995 Diabetes Screening Diabetes Screenin g [facility] Start: 1995 Screening for malign ant neoplasm of colon [facility] Start: 1985 Lipid panel Lipid Screening [facility] Start: 1968 Hepatitis C screening Hepatitis C Sc [facility] Start: 1950 Abdominal aortic aneurysm screening Abdominal Aortic Aneurysm Screening [facility] Patient Education [facility] Work Phone: Patient referral [facility] Work Phone: End: 10-09-2024 Screening colonoscopy COLONOSCOPY SCREENING Endoscopy Routine Screening for colon cancer 1 Occurrences starting 10/09/2023 until 10/09/2024 [facility] Work Phone: Comment on above: 1 Occurrences starti ng 10/09/2023 until 10/09/2024 [facility] Payers Date Payer Category Payer Self-pay [id number] 2019 Department [facility] ([facility] and others) [id number] 2019 Private Health Insurance [facility] [employer] [id number] 2019-Present [phone] [address] [place] [address] PPO [id number] 2005 Unknown [employer] [place] [id number] Medicare MEDICARE PART A B [id number] Unknown [id number] Social History Date Type Detail Facility Start: 08-08-2022 End: 05-04-2023 Tobacco smoking status KSIS Unknown if ever smoked [facility] Start: 1950 Sex Assigned At Male [facility] Start: 10-09-2023 [facility] History of tobacco use Current smoker [facility] History of tobacco use Cigar Smoker [facility] Start: 10-09-2023 Tobacco use and exposure Smokeless tobacco non-user [facility] Start: 10-09-2023 Alcohol intake Current drinke r of alcohol (finding) [facility] Start: 10-09-2023 History of Social function [facility] Start: 10-09-2023 Tobacco use panel [facility] National Score (1-100), lower number is lower risk 70 [facility] Start: 10-09-2023 [facility] Start: 1950 Sex Assigned At Not on file [facility] Mental Status Date Assessment Result Facility 08-08-2022 Cognitive function Follows Commands;Drows y [facility] Work Phone: Clinical Notes 10-09-2023 to [...] PRIOR TO PROCEDURE documented in this encounter [facility] 10-26-2023 History and physical note UPDATED [...] AND PHYSICAL Will Marr 1950 REFERRING PHYSICIAN: [facility] CHIEF COMPLAINT: Consult (colonoscopy) HPI: The [...] his family He is referred by the [place] - referral number [id number] for colonoscopy for screening for colon cancer [...] (EFFEXOR) 75 mg tablet 150 mg. PEG 0278-Uwrlppzypkl-Hfo C (MOVIPREP) 100-7.5-2.691 gram TAKE BEFORE PROCEDURE [...] AND PHYSICAL Will Marr 1950 REFERRING PHYSICIAN: [facility] CHIEF COMPLAINT: Consult (colonoscopy) HPI: The [...] his family He is referred by the [place] - referral number [id number] for colonoscopy for screening for colon cancer [...] (EFFEXOR) 75 mg tablet 150 mg. PEG 5783-Lhnpfcidtjp-Hqs C (MOVIPREP) 100-7.5-2.691 gram TAKE BEFORE PROCEDURE [...] Gertrudis Ambrosio MD documented in this encounter [facility] 10-26-2023 Nurse Note Patient used restroom [...] at this time. documented in this encounter [facility] 10-09-2023 Note HNO ID: [id number] Author: GERTRUDIS AMBROSIO MD Service: ? Author Type: Physician Type: Progress Notes Filed: 10/12/2023 12:27 Note Text: HISTORY AND PHYSICAL Will Marr 1950 REFERRING PHYSICIAN: [facility] CHIEF COMPLAINT: Consult (colonoscopy) HPI: The [...] his family He is referred by the [place] - referral number [id number] for colonoscopy for screening for colon cancer [...] (EFFEXOR) 75 mg tablet 150 mg. PEG 3549-Wfapoorbjkb-Xzp C (MOVIPREP) 100-7.5-2.691 gram TAKE BEFORE PROCEDURE [...] psychiatric medications, pablo (more content not included)... [facility] 10-09-2023 History of Presen t illness Narrative HISTORY AND PHYSICAL Will Marr 1950 REFERRING PHYSICIAN: [facility] CHIEF COMPLAINT: Consult (colonoscopy) HPI: [...] his family He is referred by the [place] - referral number [id number] for colonoscopy for screening for colon cancer [...] (EFFEXOR) 75 mg tablet 150 mg. PEG 4350-Vflxccjvqbx-Jfm C (MOVIPREP) 100-7.5-2.691 gram TAKE BEFORE PROCEDURE [...] entered by the nurse and reviewed by pa Nursing Notes: Milagro Lopez RN 10/09/2023 10:52 [...] [facility]. Diagnoses: (Z12.11) Screening for colon cancer (Z79.02) Antiplatelet or antithrombotic long-term use I have confirmed and edited as necessary, the PFSH and ROS obtained by others. Consultation requested by Administration at [place] for an opinion regarding patient's screening for colon cancer. My final recommendations will be communicated back to the requesting physician by way of shared Medical record or letter to requesting physician via US mail. Medical Decision Making: Risk: Low: Low risk from testing/treatment Medical Decision Making Level: 2 - Straightforward Gertrudis Ambrosio MD documented in this encounter [facility] 10-09-2023 Nurse Note REVIEW OF SYSTEMS: [...] Milagro Lopez RN documented in this encounter [facility] Evaluation note No assessment inform ation available [facility] Work Phone: Evaluation note Diagnosis Screening for colon cancer Special screening for malignant neoplasms, colon Antiplatelet or antithrombotic long-term use Encounter for long-term (current) use of antiplatelets/antithrombotics [facility] Screening for colon cancer- Primary Special screening for malignant neoplasms, colon documented [facility] this encounter [facility]ative)* Outpatient Procedure (Routine) - Authorized Specialty Diagnoses / Procedures Referred By Contmarie t Referred To Contact [facility] Diagnoses Screening for colon cancer Procedures COLONOSCOPY SCREENING COLONOSCOPY FLX DX W/COLLJ SPEC WHEN Gertrudis Stark MD [address] [place] [address] [facility] [address] [place] [address] Referral ID Status Reason Start Date Expiration Date Visits Requested Visits Authorized [id number] Authorized Auto-Generat ed Referral 3 04/06/2024 1 1 [facility] for visit Narrative* Outpatient Procedure (Routine) - Authorized Specialty Diagnoses / Procedures Referred By Vlad schaefer Referred To Contact [facility] Diagnoses Screening for colon cancer Procedures COLONOSCOPY SCREENING COLONOSCOPY FLX DX W/COLLJ SPEC WHEN Gertrudis Stark MD [address] [facility] [place] [address] [facility] [address] [place] [address] Referral ID Status Reason Start Date Expiration Date Visits Requested Visits Authorized [id number] Authorized Auto-Generat ed Referral 3 04/06/2024 1 1 [facility] Chief Complaint and Reason for Visit Chief Complaint CONSTIPATION Chief Complaint back/abd pain Advance Directives No Advanced Directives Records Found Advance Directive Response Recorded Date/ Time Living Will No August 08, 2 022 1:57am Power of Dispersion Mixer No August 08, 2022 1:57am Advance Directive Response Recorded Date/ Time Living Will Yes May 04, 2 023 6:35am Power of Dispersion Mixer Yes May 04, 2023 6:35am Name of Medical Power of Dispersion Mixer Darci Marquez May 04, 2023 6:35am Summary [...] content) DATE CREATED AUTHOR 08/18/2022 [facility] DATE CREATED AUTHOR AUTHOR'S ORGANIZ ATION 12/06/2023 [facility] Care Teams (unrecognized sec tion and content) Team Status: Active Member Role Status Dates [facility] Family Provider Active [facility] Primary Care Provider Active Team Status: Inactive Member Role Status Dates [facility] Primary Care Provider Active Dr. Hansel Ware MD Emergency Provider Active Contractor General Building Relationship Specialty Start Date End Date [facility] [address] [place], [place] [id number] PCP - General 10/09/23 Contractor General Building Relationship Specialty Start Date End Date Center, [facility] [address] [place] [address] PCP - General 10/09/23 Contractor General Building Relationship Specialty Start Date End Date [facility], [facility] [address] [place] [address] PCP - General 10/09/23 Source Comments (unrecognize d section and content) In the event this informatio n is protected by the Federal Confidentiality of Alcohol and Drug Abuse Patient Records regulations: The Federal rules restrict any use of the information to criminally investigate or prosecute any alcohol or drug abuse patient.[facility] the event this information is protected by the Federal Confidentiality of Alcohol and Drug Abuse Patient Records regulations: The Federal rules restrict any use of the information to criminally investigate or prosecute any alcohol or drug abuse patient.[facility] the event this information is protected by the Federal Confidentiality of Alcohol and Drug Abuse Patient Records regulations: The Federal rules restrict any use of the information to criminally investigate or prosecute any alcohol or drug abuse patient.[facility] Reason for Visit (unrecogniz ed section and content) Reason Comments Consult colonoscopy Specialty Diagnoses / Procedures Referred By Vlad t Referred To Contact General Surgery / GENERAL SURGERY Diagnoses Encounter for screening for malignant neoplasm of colon COLON CONSULT - [place] REFERRING - IN SCANNED DOC, [facility] printed CT scan report, no prior colonoscopy noted. mjs, Procedures OFFICE/OUTPATIENT [facility] MDM 60 MINUTES NEW DDI PATIENT Center, [facility] [address] [place] [address] Gertrudis Ambrosio MD [address] [place] [address] Referral ID Status Reason Start Date Expiration Date Visits Re quested Visits Authorized [id number] Closed 08/06/2023 02/02/2024 1 1 Reason Comments [...] BE BASED ON THE PRIMARY CLINICAL RECORDS. [employer] provides no warranty or guarantee of the accuracy or completeness of information in this document.
--- OUTSIDE RECORDS SUMMARY | 2025-04-18 09:23 | XMS RPT_ITS | CCD ---
Author Organization [facility] Care Team Providers Care Vp Strategy Name Role Phone Dr. Hansel Ware Attending [facility], [place] Primary Care [facility], [facility] Primary Care Provider GERTRUDIS AMBROSIO Referring Unavailable [...] acid 4700 mg / polyethylene glycol 3350 679764 mg / potassium chloride 1015 mg / [...] daily. Take by mouth. polyethylene glycol 3350 51035 mg powder for oral solution (2 sources) [...] aftercare (5 sources) Patient encounter status; Translations: [ferry terminal agent (current) use of antithrombotics/a ntiplatelets] Onset: 10-26-2023 [...] Facility HISTORY PHYSICALon HISTORY PHYSICAL HNO ID: [id number] Author: GERTRUDIS AMBROSIO MD Service: General Surgery Author Type: Physician Type: H&P Filed: 10/26/2023 09:20 Note Text: HISTORY AND PHYSICAL Will Marr 1950 REFERRING PHYSICIAN: [facility] CHIEF COMPLAINT: Consult (colonoscopy) HPI: The patient [...] his family [place] the [place] - referral [place] [id number] for colonoscopy for screening for colon cancer [...] (EFFEXOR) 75 mg tablet 150 mg. PEG 2843-Iivacqbcprb-Me t C (MOVIPREP) 100-7.5-2.691 gram TAKE BEFORE [...] denies voices (more content not included)... Normal [facility] NURSING PROGon 10-26-2023 NURSING PROG HNO ID: [id number] Author: MAJO CHAVIS RN Service: ? Author Type: Registered Nurse Type: Nursing Progress Note Filed: 10/26/2023 09:28 Note Text: Patient used restroom middle of pre procedure preparation, he reports his stool was semi solid and dark brown. He determined he should cancel procedure at this time and reschedule. Dr Ambrosio notified [facility] NURSING PROG HNO ID: [id number] Author: MAJO CHAVIS RN Service: ? Author [...] would like to proceed at this time. [facility] CNOVon 10-09-2023 CNOV Office Visit (GENSWS) ---- WILL MARR ([id number]) 1950 M Date Time Provider Department 10/09/23 [...] AND PHYSICAL Will Marr 1950 REFERRING PHYSICIAN: [facility] CHIEF COMPLAINT: Consult (colonoscopy) HPI: The patient [...] his family He [place] referred [place] the [place] - referral number [id number] for colonoscopy for screening for colon cancer [...] (EFFEXOR) 75 mg tablet 150 mg. PEG 4151-Yjxebxxjjcu-Tp t C (MOVIPREP) 100-7.5-2.691 gram TAKE BEFORE PROCEDURE BY MOUTH ONE TIME (more content not included)... Normal [facility] WILL MARR ([id number]) 1950 M Date Time Provider Department 10/09/23 [...] AFTER FIRST USE) DOSE CHANGE - PEG 8687-Dpsbdvpdiyu-Zr t C (MOVIPREP) 100-7.5-2.691 gram - rosuvastatin [...] Status:Closed by IVONE CHARLES on 12/05/23 Normal [facility] Absolute lymphocyte countOrd ered By: Hansel Ware on 05-04-2023 Lymphocytes Auto (Unsp spec) [#/Vol] 2.38 10*3/uL 0.83-4.51 [facility] Basophil percentageOrdered B y: Hansel Ware on 05-04-2023 Basophil percentage 10-25 SEEN /hpf 0-5 [facility] Basophils/100 WBC (Bld) 0.8 % 0-1 [facility] Chloride [Moles/Vol] 103 mmol/L 98-107 [facility] Eosinophils/100 WBC (Bld) 4.6 % 0-5 [facility] Glucose [Mass/Vol] 182 mg/dL 74-106 [facility] Comment on above: Fasting Glucose resu lt greater than or equal to 126 mg/dL suggests DIABETES MELLITUS per A.D.A. criteria. Neutrophils (Bld) [#/Vol] 4.5 10*3/uL 2.0-7.7 [facility] Neutrophils/100 WBC (Bld) 56.1 % 47-70 [facility] Potassium [Moles/Vol] 3.9 mmol/L 3.5-5.1 [facility] Sodium [Moles/Vol] 137 mmol/L 136-145 [facility] WBC (Bld) [#/Vol] 8.0 10*3/uL 4.4-11.0 [facility] Bilirubin Test strip Ql (U)O rdered By: Hansel Ware on 05-04-2023 Bilirubin Ql (U) 1 mg/dL Negative [facility] Comment on above: COLOR OF URINE MAY A FFECT DIPSTICK RESULTS. Blood erythrocytes count (nu mber/volume)Ordered By: Hansel Ware on 05-04-2023 RBC (Bld) [#/Vol] 5.14 10*6/uL 4.6-6.2 [facility] Blood hemoglobin measurement (mass/volume)Ordered By: Hansel Ware on 05-04-2023 Hemoglobin (Bld) [Mass/Vol] 15.3 g/dL 13.0-16.5 [facility] Blood lymphocytes/100 leukoc ytesOrdered By: Hanesl Ware on 05-04-2023 Lymphocytes/100 WBC (Bld) 29.8 % 19-41 [facility] Blood monocytes/100 leukocyt esOrdered By: Hansel Ware on 05-04-2023 Monocytes/100 WBC (Bld) 8.4 % 0-10 [facility] Blood platelet mean volumeOr dered By: Hansel Ware on 05-04-2023 Platelet mean volume (Bld) [Entitic vol] 8.9 fL 6.2-12.0 [facility] Determination of erythrocyte mean corpuscular volume (MCV)Ordered By: Hansel Wrae on 05-04-2023 MCV (RBC) [Entitic vol] 85.6 fL 80-94 [facility] Hematocrit Auto (Bld) [Volum e fraction]Ordered By: Hansel Ware on 05-04-2023 Hematocrit (Bld) [Volume fraction] 44.0 % 40-54 [facility] Ketones Test strip Ql (U)Ord ered By: Hansel Ware on 05-04-2023 Ketones Ql (U) 15 mg/dl Negative [facility] Laboratory - Chemistry and C hemistry - challengeOrdered By: Hansel Ware on 05-04-2023 CO2 [Moles/Vol] 24.0 mmol/L 21.0-32.0 [facility] Urea nitrogen/Creatinine [Mass ratio] 15.7 mg/mg 10-20 [facility] - Hematology and Cell countsOrdered By: Hansel Ware on 05-04-2023 Erythrocyte distribution width (RBC) [Entitic vol] 39.0 fL 35.1-43.9 [facility] Erythrocyte distribution width (RBC) [Ratio] 12.6 % 11.6-14.6 [facility] Immature granulocytes/100 WBC (Bld) 0.300 % 0.0-0.9 [facility] Comment on above: IG% - Immature Granu locytes (promyelocytes, myelocytes and metamyelocytes) > 1% indicates that a LEFT SHIFT is Present. MCH (RBC) [Entitic mass] 29.8 pg 27.0-32.0 [facility] Nucleated RBC/100 WBC (Bld) [Ratio] 0 % 0-5 [facility] MCHC Auto (RBC) [Mass/Vol]Or dered By: Hansel Ware on 05-04-2023 MCHC (RBC) [Mass/Vol] 34.8 g/dL 32-36 [facility] Mucus LM Ql (Urine sed)Order ed By: Hansel Ware on 05-04-2023 Mucus Ql (Urine sed) 0 SEEN /hpf [facility] Nitrite Test strip Ql (U)Ord ered By: Hansel Ware on 05-04-2023 Nitrite Ql (U) Positive Negative [facility] No Panel InformationOrdered By: Hansel Ware on 05-04-2023 Estimated Creatinine Clearance Calc 58.06 ml/min [facility] Estimated GFR (MDRD) Amer 80 mL/min >60 [facility] Comment on above: GFR Calc Estimated GFR (MDRD) Non-Af Amer 66 mL/min >60 [facility] Comment on above: Non- GFR Calc Platelets bldOrdered By: Rajan Ware on 05-04-2023 Platelets (Bld) [#/Vol] 250 10*3/uL 150-450 [facility] Protein Test strip Ql (U)Ord ered By: Hansel Ware on 05-04-2023 Protein Ql (U) 100 mg/dl Negative [facility] Serum or plasma calcium kaden urement (mass/volume)Ordered By: Hansel Ware on 05-04-2023 Calcium [Mass/Vol] 9.8 mg/dL 8.5-10.1 [facility] Serum or plasma creatinine m easurement (mass/volume)Ordered By: Hansel Ware on 05-04-2023 Creatinine [Mass/Vol] 1.15 mg/dL 0.70-1.30 [facility] Comment on above: The validity of the calculated GFR & GFRAA in patients over 70 years has not been determined. Clinical correlation is essential. Serum or plasma urea nitroge n measurement (mass/volume)Ordered By: Hansel Ware on 05-04-2023 Urea nitrogen [Mass/Vol] 18 mg/dL 7-18 [facility] Squamous epithelial cells de tection in urine sediment by light microscopyOrdered By: Hansel Ware on 05-04-2023 Epithelial cells.squamous LM Ql (Urine sed) 0 SEEN /hpf 0-5 [facility] Thin prep Papanicolaou smear with manual screeningOrdered By: Hansel Ware on 05-04-2023 Thin prep Papanicolaou smear with manual screening 10 5-15 [facility] Urine blood detectionOrdered By: Hansel Ware on 05-04-2023 RBC Ql (U) 250 /ul Negative [facility] RBC Ql (U) > 100 SEEN /hpf 0-5 [facility] Urine clarityOrdered By: Rajan Ware on 05-04-2023 Clarity (U) Cloudy Clear [facility] Urine color determinationOrd ered By: Hansel Ware on 05-04-2023 Color (U) Yellow Yellow [facility] Urine glucose detectionOrder ed By: Hansel Ware on 05-04-2023 Glucose Ql (U) 100 mg/dl Normal [facility] Urine leukocyte esterase det ection by dipstickOrdered By: Hansel Ware on 05-04-2023 Leukocyte esterase Test strip Ql (U) 100 /ul Negative [facility] Urine pHOrdered By: Hansel Ware on 05-04-2023 pH (U) 5.0 [pH] 5.0 - 8.0 [facility] Urine sediment bacteria coun t by microscopy (number/high power field)Ordered By: Hansel Ware on 05-04-2023 Bacteria LM.HPF (Urine sed) [#/Area] 3 /[HPF] None Seen [facility] Urine specific gravity measu rementOrdered By: Hansel Ware on 05-04-2023 Specific gravity (U) [Rel density] 1.025 1.002-1.030 [facility] Urobilinogen Auto test strip Ql (U)Ordered By: Hansel Ware on 05-04-2023 Urobilinogen Ql (U) 4 mg/dl Normal [facility] Emergency Department Summary on 08-08-2022 Emergency Department Summary [facility] Medical Records Department [address] [place] [address] Emergency Department Summary 08/08/22 MR#: [id number] Acct: [id number] Name: WILL MARR Rep #: [id number] : 1950 72 From: Hansel Ware MD PCP: [facility] Status:REG ER Location: ED HPI HPI - [...] but he ran out 4 days ago. [facility] Medical History Diabetes Hyperlipidemia Hypertension Myocardial infarct [...] Method [ (more content not included)... Normal [facility] Vital Signs Date Time Vital Sign Value Performing Clinician Faci lity 10-09-2023 10:46-0500 Body height 175.3 cm Gertrudis Ambrosio MD Work Phone: [facility] 10-09-2023 10:46-0500 Body temperature 97 [degF] Gertrudis Ambrosio MD Work Phone: [facility] 10-09-2023 10:46-0500 Body weight 70.76 kg Gertrudis Ambrosio MD Work Phone: [facility] 10-09-2023 10:46-0500 Diastolic blood pressure 78 mm[Hg] Gertrudis Ambrosio MD Work Phone: [facility] 10-09-2023 10:46-0500 Heart rate 94 /min Gertrudis Ambrosio MD Work Phone: [facility] 10-09-2023 10:46-0500 SaO2% (BldA) [Mass fraction] 95 % Gertrudis Ambrosio MD Work Phone: [facility] 10-09-2023 10:46-0500 Systolic blood pressure 130 mm[Hg] Gertrudis Ambrosio MD Work Phone: [facility] 05-04-2023 09:21-0400 Diastolic blood pressure 62 mm[Hg] [facility] 05-04-2023 09:21-0400 Heart rate 74 /min [facility] 05-04-2023 09:21-0400 Respiratory rate 16 /min [facility] 05-04-2023 09:21-0400 SaO2% (BldA) [Mass fraction] 99 % [facility] 05-04-2023 09:21-0400 Systolic blood pressure 118 mm[Hg] [facility] 05-04-2023 06:33-0400 Body height 175.26 cm [facility] 05-04-2023 06:33-0400 Body mass index (BMI) [Ratio] 23.6 kg/m2 [facility] 05-04-2023 06:33-0400 Body temperature 96.3 [degF] [facility] 05-04-2023 06:33-0400 Body weight 72.57 kg [facility] 08-08-2022 06:39-0500 Diastolic blood pressure 86 mm[Hg] [facility] Work Phone: 08-08-2022 06:39-0500 Heart rate 85 /min [facility] Work Phone: 08-08-2022 06:39-0500 Respiratory rate 16 /min [facility] Work Phone: 08-08-2022 06:39-0500 SaO2% (BldA) [Mass fraction] 100 % [facility] Work Phone: 08-08-2022 06:39-0500 Systolic blood pressure 149 mm[Hg] [facility] Work Phone: 08-08-2022 06:27-0500 Inhaled oxygen flow rate 2 L/min [facility] Work Phone: 08-08-2022 06:26-0500 Body temperature 98.6 [degF] [facility] Work Phone: 08-08-2022 01:55-0500 Body height 175.26 cm [facility] Work Phone: 08-08-2022 01:55-0500 Body mass index (BMI) [Ratio] 24 kg/m2 [facility] Work Phone: 08-08-2022 01:55-0500 Body weight 73.8 kg [facility] Work Phone: Encounters Encounter Date Encounter Type Care Provider Facility Start: 10-26-2023 ambulatory GERTRUDIS AMBROSIO [facility] ty:[facility] Start: 10-26-2023 End: 10-26-2023 Subsequent hospital visit by physician Gertrudis Ambrosio MD Work Phone: Ambulatory Surgery Comment on above: Screening for colon cancer [Z12.11] Start: 10-09-2023 Telephone encounter Gertrudis Allred MD Work Phone: General Surgery Comment on above: 10/26/2023 [facility] Start: 10-09-2023 End: 10-09-2023 ambulatory GERTRUDIS AMBROSIO Facility:[facility] Start: 10-09-2023 End: 10-09-2023 Patient encounter procedure Gertrudis Ambrosio MD Work Phone: General Surgery Comment on above: Screening for colon cancer; Antiplatelet or antithrombotic long-term use Start: 05-04-2023 End: 05-04-2023 Emergency department patient visit [facility] Work Phone: Start: 08-08-2022 End: 08-08-2022 Emergency department patient visit Dr. Hansel Ware Facility:[facility] Start: 08-08-2022 End: 08-08-2022 Emergency department patient visit [facility] Procedures Date Procedure Procedure Detail Performing Clinician Start: 05-04-2023 Computed tomography of abdomen and pelvis with intravenous contrast Plan of Treatment Date Care Activity Detail Author Start: 07-27-2025 Urine microalbumin profile DTaP,Tdap,Td Vaccine (3 - Td or Tdap) [facility] Start: 08-27-2023 Advance Directive Discussion Advance Directive Discussion [facility] Start: 08-27-2023 Behavioral Health Screening Behavioral Health Screening [facility] Start: 08-27-2023 Depression Assessment Depression Ass essment [facility] Start: 05-04-2023 Bacteria identified in Urine by Culture Urine Culture [facility] Start: 05-04-2023 [facility] Start: 04-27-2023 Covid-19 Vaccine () Covid-19 Vaccine () [facility] Start: 2010 RSV Vaccine (1 - 1-d ose 60+ series) RSV Vaccine (1 - 1-dose 60+ series) [facility] Start: 1995 Diabetes Screening Diabetes Screenin g [facility] Start: 1995 Screening for malign ant neoplasm of colon [facility] Start: 1985 Lipid panel Lipid Screening [facility] Start: 1968 Hepatitis C screening Hepatitis C [facility] Start: 1950 Abdominal aortic aneurysm screening Abdominal Aortic Aneurysm Screening [facility] Patient Education [facility] Work Phone: Patient referral [facility] Work Phone: End: 10-09-2024 Screening colonoscopy COLONOSCOPY SCREENING Endoscopy Routine Screening for colon cancer 1 Occurrences starting 10/09/2023 until 10/09/2024 [facility] Work Phone: Comment on above: 1 Occurrences starti ng 10/09/2023 until 10/09/2024 [facility] Payers Date Payer Category Payer Self-pay [id number] 2019 Department [facility] ([facility] and others) [id number] 2019 Private Health Insurance [facility] [employer] [id number] 2019-Present [phone] [address] [place] [address] PPO [id number] 2005 Unknown [employer] [place] [id number] Medicare MEDICARE PART A B [id number] Unknown [id number] Social History Date Type Detail Facility Start: 08-08-2022 End: 05-04-2023 Tobacco smoking status MTIS Unknown if ever smoked [facility] Start: 1950 Sex Assigned At Male [facility] Start: 10-09-2023 [facility] History of tobacco use Current smoker [facility] History of tobacco use Cigar Smoker [facility] Start: 10-09-2023 Tobacco use and exposure Smokeless tobacco non-user [facility] Start: 10-09-2023 Alcohol intake Current drinke r of alcohol (finding) [facility] Start: 10-09-2023 History of Social function [facility] Start: 10-09-2023 Tobacco use panel [facility] National Score (1-100), lower number is lower risk 70 [facility] Start: 10-09-2023 Alcohol Comment [facility] Start: 1950 Sex Assigned At Not on file [facility] Mental Status Date Assessment Result Facility 08-08-2022 Cognitive function Follows Commands;Drows y [facility] Work Phone: Clinical Notes 10-09-2023 to [...] PRIOR TO PROCEDURE documented in this encounter [facility] 10-26-2023 History and physical note UPDATED [...] AND PHYSICAL Will Marr 1950 REFERRING PHYSICIAN: [facility] CHIEF COMPLAINT: Consult (colonoscopy) HPI: The patient [...] his [place] [id number] for colonoscopy for screening for colon cancer [...] (EFFEXOR) 75 mg tablet 150 mg. PEG 7852-Tbqmnxzbtyr-Yht C (MOVIPREP) 100-7.5-2.691 gram TAKE BEFORE PROCEDURE [...] AND PHYSICAL Will Marr 1950 REFERRING PHYSICIAN: [facility] CHIEF COMPLAINT: Consult (colonoscopy) HPI: The patient [...] his family [place] - referral [place] [id number] for colonoscopy for screening for colon cancer [...] (EFFEXOR) 75 mg tablet 150 mg. PEG 5341-Jhqofkneonk-Gyc C (MOVIPREP) 100-7.5-2.691 gram TAKE BEFORE PROCEDURE [...] Gertrudis Ambrosio MD documented in this encounter [facility] 10-26-2023 Nurse Note Patient used restroom [...] at this time. documented in this encounter [facility] 10-09-2023 Note HNO ID: [id number] Author: GERTRUDIS AMBROSIO MD Service: ? Author Type: Physician Type: Progress Notes Filed: 10/12/2023 12:27 Note Text: HISTORY AND PHYSICAL Will Marr 1950 REFERRING PHYSICIAN: [facility] CHIEF COMPLAINT: Consult (colonoscopy) HPI: The patient [...] his family [place] the [place] - referral number [id number] for colonoscopy for screening for colon cancer [...] (EFFEXOR) 75 mg tablet 150 mg. PEG 4538-Gfbctvdrwxb-Vpq C (MOVIPREP) 100-7.5-2.691 gram TAKE BEFORE PROCEDURE [...] psychiatric medications, pablo (more content not included)... [facility] 10-09-2023 History of Presen t illness Narrative HISTORY AND PHYSICAL Will Marr 1950 REFERRING PHYSICIAN: [facility] CHIEF COMPLAINT: Consult (colonoscopy) HPI: [...] his family [place] the [place] - referral [place] [id number] for colonoscopy for screening for colon cancer [...] (EFFEXOR) 75 mg tablet 150 mg. PEG 3847-Pqhdlzpbeuc-Exm C (MOVIPREP) 100-7.5-2.691 gram TAKE BEFORE PROCEDURE [...] entered by the nurse and reviewed by ne Nursing Notes: Milagro Lopez RN 10/09/2023 10:52 [...] will be scheduled for the procedure at [facility]. Diagnoses: (Z12.11) Screening for colon cancer (Z79.02) Antiplatelet or antithrombotic long-term use I have confirmed and edited as necessary, the PFSH and ROS obtained by others. Consultation requested by Administration at [facility] for an opinion regarding patient's screening for colon cancer. My final recommendations will be communicated back to the requesting physician by way of shared Medical record or letter to requesting physician via US mail. Medical Decision Making: Risk: Low: Low risk from testing/treatment Medical Decision Making Level: 2 - Straightforward Gertrudis Ambrosio MD documented in this encounter [facility] 10-09-2023 Nurse Note REVIEW OF SYSTEMS: [...] Milagro Lopez RN documented in this encounter [facility] Evaluation note No assessment inform ation available [facility] Work Phone: Evaluation note Diagnosis Screening for colon cancer Special screening for malignant neoplasms, colon Antiplatelet or antithrombotic long-term use Encounter for long-term (current) use of antiplatelets/antithrombotics [facility] Diagnosis Screening for colon cancer- Primary Special screening for malignant neoplasms, colon documented [facility] this encounter [facility] (n[facility]ative)* Outpatient Procedure (Routine) - Authorized Specialty Diagnoses / Procedures Referred By Contmarie t Referred To Contact [facility] Diagnoses Screening for colon cancer Procedures COLONOSCOPY SCREENING COLONOSCOPY FLX DX W/COLLJ SPEC WHEN Gertrudis Stark MD [address] [place] [address] [facility] [address] [place] [address] Referral ID Status Reason Start Date Expiration Date Visits Requested Visits Authorized [id number] Authorized Auto-Generat ed Referral 3 04/06/2024 1 1 [facility] for visit Narrative* Outpatient Procedure (Routine) - Authorized Specialty Diagnoses / Procedures Referred By Vlad schaefer Referred To Contact [facility] Diagnoses Screening for colon cancer Procedures COLONOSCOPY SCREENING COLONOSCOPY FLX DX W/COLLJ SPEC WHEN Gertrudis Stark MD [address] [place] [address] [facility] [address] [place] [address] Referral ID Status Reason Start Date Expiration Date Visits Requested Visits Authorized [id number] Authorized Auto-Generat ed Referral 3 04/06/2024 1 1 [facility] Chief Complaint and Reason for Visit Chief Complaint CONSTIPATION Chief Complaint back/abd pain Advance Directives No Advanced Directives Records Found Advance Directive Response Recorded Date/ Time Living Will No August 08, 2 022 1:57am Power of Distillery Laborer No August 08, 2022 1:57am Advance Directive Response Recorded Date/ Time Living Will Yes May 04, 2 023 6:35am Power of Distillery Laborer Yes May 04, 2023 6:35am Name of Medical Power of Distillery Laborer Darci Marquez May 04, 2023 6:35am Summary [...] content) DATE CREATED AUTHOR 08/18/2022 [facility] DATE CREATED AUTHOR AUTHOR'S ORGANIZ ATION 12/06/2023 [facility] Care Teams (unrecognized sec tion and content) Team Status: Active Member Role Status Dates [facility] Family [facility] Active [facility] Primary Care Provider Active Team Status: Inactive Member Role Status Dates [facility] Primary Care Provider Active Dr. Hansel Ware MD Emergency Provider Active Vp Strategy Relationship Specialty Start Date End Date [facility] [address] [place], [place] [id number] PCP - General 10/09/23 Vp Strategy Relationship Specialty Start Date End Date [facility], [facility] [address] [place] [address] PCP - General 10/09/23 Vp Strategy Relationship Specialty Start Date End Date [place] [address] [place] [address] PCP - General 10/09/23 Source Comments (unrecognize d section and content) In the event this informatio n is protected by the Federal Confidentiality of Alcohol and Drug Abuse Patient Records regulations: The Federal rules restrict any use of the information to criminally investigate or prosecute any alcohol or drug abuse patient.[facility] the event this information is protected by the Federal Confidentiality of Alcohol and Drug Abuse Patient Records regulations: The Federal rules restrict any use of the information to criminally investigate or prosecute any alcohol or drug abuse patient.[facility] the event this information is protected by the Federal Confidentiality of Alcohol and Drug Abuse Patient Records regulations: The Federal rules restrict any use of the information to criminally investigate or prosecute any alcohol or drug abuse patient.[facility] Reason for Visit (unrecogniz ed section and content) Reason Comments Consult colonoscopy Specialty Diagnoses / Procedures Referred By Vlad t Referred To Contact General Surgery / GENERAL SURGERY Diagnoses Encounter for screening for malignant neoplasm of colon COLON CONSULT - NE REFERRING - IN SCANNED DOC, [facility] printed CT scan report, no prior colonoscopy noted. mjs, Procedures OFFICE/OUTPATIENT [employer] [facility] 60 MINUTES NEW [facility]DI PATIENT Center, [facility] [address] [place] [address] Gertrudis Ambrosio MD [address] [place] [address] Referral ID Status Reason Start Date Expiration Date Visits Re quested Visits Authorized [id number] Closed 08/06/2023 02/02/2024 1 1 Reason Comments [...] BE BASED ON THE PRIMARY CLINICAL RECORDS. [employer] provides no warranty or guarantee of the accuracy or completeness of information in this document.
[2025-04-18 09:29] VITALS: BP 90/71; PULSE 106; RESP 16; O2SAT 99
[2025-04-18 09:34] LABS: Anion Gap 22 (5-15); BUN 13 mg/dL (4-19); BUN/Creat Ratio 12.1 RATIO (10-20); Calcium,Total 9.9 mg/dL (7.6-11.0); Carbon Dioxide 20.3 mmol/L (21.0-32.0); Chloride 95 mmol/L (98-108); Estimated Creatinine Clearance 62.92 ml/min (50-250); Glucose 275 mg/dL (70-99); Potassium 4.1 mmol/L (3.3-5.1)
[2025-04-18 09:38] LABS: Troponin T High Sensitivity 1953 ng/L (<=22)
--- NOTE | 2025-04-18 10:46 | PCA ---
CALLED [facility] MULTIPLE TIM[facility]. COULD NOT GET AHOLD OF THE TRANSFER LINE OR THE BED CONTROL. I GOT AHOLD OF THE BOARD LINING MACHINE OPERATOR WHO SENT ME AGAIN TO BED CONTROL WHERE THERE WAS ONLY A VOICEMAIL. THE VOICEMAIL DID NOT LEAVE A FAX OR ANYWHERE TO SEND PTS CHART. WILL TRY AGAIN LATER.
--- OUTSIDE RECORDS SUMMARY | 2025-04-18 11:13 | XMS RPT_ITS | CCD ---
Author Organization [facility] Care Team Providers Care Chart Snatcher Name Role Phone Dr. Hansel Ware Attending [facility] Primary Care Provider GERTRUDIS AMBROSIO Referring Unavailable GERTRUDIS AMBROSIO Attending [facility] GERTRUDIS AMBROSIO Attending [facility] Provider Nadia Villaseñor MD, Dr. Porter Admit Provider [phone] Charleen ARIZMENDI, Dr. Porter Attending Provider Charleen ARIZMENDI, Dr. Porter Referring Provider Dr. Hansel Ware MD Emergency Provider Medications Current Medications Medication Drug Class(es) Dates Sig (Normalized) Sig (Original) glipiZIDE 5 mg oral tablet (5 sources) Sulfonylurea Start: 05-04-2023 take 1 tablet by mouth once daily Glipizide 5 mg tablet Active 5 mg PO DAILY May 04, 2023 12:00am Comment on above: Take 1 tablet by th daily before breakfast. Insulin Glargine-Yfgn 100 unit/mL (3 mL) insulin pen (1 source) Start: 04-18-2025 Insulin Glargine-Yfgn 100 unit/mL (3 mL) insulin pen Active 15 U SC daily April 18, 2025 12:00am metFORMIN hydrochloride 1000 mg oral tablet (5 sources) Biguanide Start: 05-04-2023 take 1 tablet by mouth twice daily Metformin 1,000 mg tablet Active 1000 mg PO TWICE A DAY May 04, 2023 12:00am Comment on above: 1,000 mg. rosuvastatin calcium 40 mg oral tablet (4 sources) HMG-CoA Reductase Inhibitor Start: 04-18-2025 take 1 tablet by mouth once daily Rosuvastatin (Crestor) 40 mg tablet Active 40 mg PO DAILY April 18, 2025 12:00am Start: 07-26-2023 rosuvastatin ( CRESTOR) 40 mg tablet 40 mg. 0 07/26/2023 Active Comment on above: 40 mg. simvastatin 80 mg oral tablet (3 sources) HMG-CoA Reductase Inhibitor Start: 10-27-2017 Simvastatin (Zocor) 80 MG tablet Active 40 mg PO AT BEDTIME October 27, 2017 1:00am Start: 10-27-2017 take 1 tablet by charlie th at bedtime Simvastatin (Zocor) 80 MG tablet Active 80 MG PO AT BEDTIME October 27, 2017 12:00am 24 hr venlafaxine 150 mg extended release oral capsule (7 sources) Serotonin and Norepinephrine Reuptake Inhibitor Start: 04-18-2025 take 1 capsule by mouth once daily Venlafaxine (Effexor Xr) 150 mg capsule,extended release 24hr Active 300 mg PO DAILY April 18, 2025 12:00am Start: 10-27-2017 venlafaxine (E FFEXOR) 75 mg tablet 150 mg. 0 10/27/2017 Active Start: 10-27-2017 take 1 tablet by charlie th twice daily Venlafaxine 75 MG tablet Active 75 mg PO TWICE A DAY October 27, 2017 1:00am Comment on above: 150 mg. Completed/Discontinued Medications Medication Drug Class(es) Dates Sig (Normalized) Sig (Original) acetaminophen 325 mg / HYDROcodone bitartrate 5 mg oral tablet (3 sources) Opioid Agonist Start: 10-27-2017 End: 05-04-2023 Hydrocodone-Acetami nophen 1 TABLET tablet Discontinued 1 - 2 {tbl} PO EVERY 6 HOURS NEEDED as needed for Pain 8 2 0 October 27, 2017 8:25pm May 04, 2023 6:39am Contusion of rib on left side Contusion of left front wall of thorax, initial encounter Start: 10-27-2017 End: 05-04-2023 take 1 tablet by mouth every six hours as needed Hydrocodone-Acetaminophen Discontinued 1 - 2 TABLET PO EVERY 6 HOURS NEEDED 8 2 October 27, 2017 8:25pm May 04, 2023 6:39am acetaminophen 325 mg / oxyCODONE hydrochloride 5 mg oral tablet (5 sources) Opioid Agonist Start: 05-04-2023 End: 04-18-2025 Oxycodone-Acetaminophen 5-32 5 mg tablet Discontinued 1 {tbl} PO Q4H as needed for Pain 18 3 0 May 04, 2023 April 18, 2025 9:17am Ureteric colic Unspecified renal colic Start: 05-04-2023 oxyCODONE-acet aminophen (PERCOCET) 5-325 mg tablet Take by mouth. [...] by mouth once daily. Amphetamine / Dextroamphetamine (3 sources) Central Nervous System Stimulant Start: 10-28-19 End: 05-04-20 take 1 tablet by mouth three times daily Adderall 10 mg Tablet Discontinued 10 mg PO THREE TIMES A DAY October 27, 2017 1:00am May 04, 2023 6:37am Start: 10-27-2017 End: 05-04-2023 take 1 tablet by mouth three times daily Adderall 10 mg Tablet Discontinued 10 MG PO THREE TIMES A DAY October 27, 2017 1:00am May 04, 2023 6:37am Start: 10-27-2017 take 1 tablet by charlie three times daily Adderall 10 mg Tablet Active 10 MG PO THREE TIMES A DAY October 27, 2017 12:00am ascorbic acid 4700 mg / polyethylene glycol 3350 [id number] mg / potassium chloride 1015 mg / [...] ON GI BOWEL PREP INSTRUCTION SHEET Aspirin (6 sources) Platelet Aggregation Inhibitor, Nonsteroidal Anti-inflammatory Drug Start: 07-26-2023 aspirin 81 mg cap 81 mg. 0 07/26/2023 Active Start: 10-27-2017 Aspirin 325 MG tablet,delayed release (DR/EC) Active 81 mg PO DAILY October 27, 2017 1:00am Start: 10-27-2017 take 81 mg by mouth once daily Aspirin Active 81 MG PO DAILY October 27, 2017 1:00am Start: 10-27-2017 take 325 mg by mouth once daily Aspirin Active 325 MG PO DAILY October 27, 2017 12:00am Comment on above: 81 mg. ciprofloxacin 500 mg oral tablet (5 sources) Quinolone Antimicrobial Start: 05-04-20 End: 04-18-20 take 1 tablet by mouth twice daily Ciprofloxacin Hcl 500 mg tablet Discontinued 500 mg PO TWICE A DAY 14 0 May 04, 2023 12:00am April 18, 2025 9:14am Comment on above: Take by mouth. clopidogrel 75 mg oral tablet (6 sources) P2Y12 Platelet Inhibitor Start: 10-28-19 End: 05-04-20 take 1 tablet by mouth once daily Clopidogrel 75 MG tablet Discontinued 75 mg PO DAILY October 27, 2017 1:00am May 04, 2023 6:41am Comment on above: Take 75 mg by mouth once daily. 0.5 ml dulaglutide 1.5 mg/ml auto-injector (5 sources) GLP-1 Receptor Agonist Start: 05-04-20 dulaglutide (TRULICITY) 0.75 mg/0.5 mL pen injector INJECT CONTENT OF 1 PEN SUBCUTANEOUSLY EVERY WEEK : KEEP REFRIGERATED, HOWEVER, MAY BE KEPT AT ROOM TEMPERATURE FOR UP TO 14 DAYS 0 05/04/2023 Active Start: 05-04-2023 Dulaglutide 0. 75 mg/0.5 mL pen injector Active 0.75 mg SC EVERY WEEK May 04, 2023 12:00am Comment on above: INJECT CONTENT OF 1 PEN SUBCUTANEOUSLY EVERY WEEK : KEEP REFRIGERATED, HOWEVER, MAY BE KEPT AT ROOM TEMPERATURE FOR UP TO 14 DAYS glucose 4000 mg chewable tablet (3 sources) Start: 10-18-19 glucose 4 gram chewable tablet 16 g. 0 10/18/2022 Active Comment on above: 16 g. insulin glargine-yfgn (SEMGLEE) 100 unit/mL (3 mL) insulin pen (3 sources) Start: 07-26-20 insulin glargine-yfgn (SEMGLEE) 100 unit/mL (3 mL) insulin pen INJECT 15 UNITS SUBCUTANEOUSLY AT BEDTIME FOR DIABETES (DISCARD PEN 28 DAYS AFTER FIRST USE) DOSE CHANGE 0 07/26/2023 Active Comment on above: INJECT 15 UNITS SUBC UTANEOUSLY AT BEDTIME FOR DIABETES (DISCARD PEN 28 DAYS AFTER FIRST USE) DOSE CHANGE 24 hr metoprolol succinate 25 mg extended release oral tablet (7 sources) beta-Adrenergic Dilcia Start: 07-26-20 take 1 tablet by mouth once daily metoprolol succinate ER (TOPROL XL) 25 mg 24 hr tablet Take 1 tablet by mouth once daily. 0 07/26/2023 Active Start: 10-27-2017 End: 10-09-2023 take 1 tablet by mouth twice daily Metoprolol Tartrate 25 MG tablet Active 25 mg PO TWICE A DAY October 27, 2017 1:00am Start: 10-27-2017 take 12.5 mg by mout h twice daily Metoprolol Tartrate Active 12.5 MG PO TWICE A DAY October 27, 2017 12:00am Comment on above: Take 1 tablet by charlie th once daily. Take by mouth. polyethylene glycol 3350 81745 mg powder for oral solution (3 sources) Osmotic Laxative Start: 06-30-2018 End: 07-30-2018 take 17 g by mouth once daily Polyethylene Glycol 3350 17 GM packet Discontinued 17 g PO DAILY 30 30 0 June 30, 2018 12:00am July 29, 2018 1:00am July 30, 2018 1:07am Problems Problem Classification Problem Date Documented Da te Episodic/Chronic Acute myocardial infarction (1 source) Myocardial infarction; Translations: [ST elevation (STEMI) myocardial infarction of unspecified site] 04-18-2025 Chronic Calculus of urinary tract (4 sources) Ureteric colic; Translations: [Unspecified renal colic] 05-04-2023 Episodic Intestinal obstruction without hernia (4 sources) Fecal impaction; Translations: [Fecal impaction of rectum] Onset: 08-14-2022 08-16-2022 Episodic Other aftercare (5 sources) Patient encounter status; Translations: [care home (current) use of antithrombotics/an tiplatelets] Onset: 10-26-2023 10-12-2023 Episodic Other gastrointestinal disorders (3 sources) Constipation; Translations: [Constipation, unspecified] 08-16-2022 Episodic Other screening for suspected conditions (not mental disorders or infectious disease) (1 source) Encounter for screening for malignant neoplasm of colon; Translations: [Screening for colon cancer] Onset: 10-26-2023 Episodic Urinary tract infections (2 sources) Acute urinary tract infection; Translations: [Urinary tract infection, site not specified] 05-04-2023 Episodic Results Test Name Value Interpretation Reference Range Facility Absolute lymphocyte countOrd ered By: Hansel Ware on 04-18-2025 Lymphocytes Auto (Unsp spec) [#/Vol] 4.11 10*3/uL 0.83-4.51 [facility] Absolute neutrophil countOrd ered By: Hansel Ware on 04-18-2025 Neutrophils (Bld) [#/Vol] 6.5 10*3/uL 2.0-7.7 [facility] Activated partial thrombopla stin time (aPTT) in platelet poor plasma by coagulation aOrdered By: Hansel Ware on 04-18-2025 aPTT Coag (PPP) [Time] 28.0 s 24.1-36.2 [facility] Automated lymphocyte count a s percentage of total leukocytesOrdered By: Hansel Ware on 04-18-2025 Lymphocytes/100 WBC Auto (Unsp spec) 34.1 % 19-41 [facility] Basophil percentageOrdered B y: Hansel Chaz on 04-18-2025 Basophils/100 WBC (Bld) 0.6 % 0-1 [facility]osin[facility]Or[facility] Eosinophils/100 WBC (Bld) 2.5 % 0-5 [facility] Erythrocyte distribution wid th ratioOrdered By: Hansel Chaz on 04-18-2025 Erythrocyte distribution width (RBC) [Ratio] 13.0 % 11.6-14.6 [facility] Erythrocyte distribution wid th standard deviationOrdered By: [facility] on 04-18-[facility] Erythrocyte distribution width (RBC) [Ratio] 40.9 fl 35.1-43.9 [facility] Hematocrit Auto (Bld) [Volum e fraction]Ordered By: Hansel Ware on 04-18-2025 Hematocrit (Bld) [Volume fraction] 46.0 % 40-54 [facility] Hemoglobin measurementOrdere d By: Hansel Ware on 04-18-2025 Hemoglobin (Bld) [Mass/Vol] 15.4 g/dL 13.0-16.5 [facility] Immature granulocytes/100 WB C Auto (Bld)Ordered By: Hansel Ware on 04-18-2025 Immature granulocytes/100 WBC (Bld) 0.500 % 0.0-0.9 [facility] Comment on above: IG% - Immature Granu locytes (promyelocytes, myelocytes and metamyelocytes) > 1% indicates that a LEFT SHIFT is Present. International normalized rat io (INR) calculationOrdered By: Hansel Ware on 04-18-2025 INR Coag (Bld) [Relative time] 0.9 {INR} [facility] MCV (mean corpuscular volume ) determinationOrdered By: Hansel Ware on 04-18-2025 MCV (RBC) [Entitic vol] 87.1 fL 80-94 [facility] Mean corpuscular hemoglobin (MCH) determinationOrdered By: Hansel Ware on 04-18-2025 MCH (RBC) [Entitic mass] 29.2 pg 27.0-32.0 [facility] Mean corpuscular hemoglobin concentration (MCHC) determinationOrdered By: Hansel Ware on 04-18-2025 MCHC (RBC) [Mass/Vol] 33.5 g/dL 32-36 [facility] Mean platelet volume determi nationOrdered By: Hansel Ware on 04-18-2025 Platelet mean volume (Bld) [Entitic vol] 9.7 fL 6.2-12.0 [facility] Monocyte percentageOrdered B y: Hansel Ware on 04-18-2025 Monocytes/100 WBC (Bld) 8.3 % 0-10 [facility] Neutrophil percentageOrdered By: Hansel Ware on 04-18-2025 Neutrophils/100 WBC (Bld) 54.0 % 47-70 [facility] Nucleated red blood cell per centageOrdered By: Hansel Ware on 04-18-2025 Nucleated RBC/100 WBC (Bld) [Ratio] 0 % 0-5 [facility] Platelet countOrdered By: Héctor Ware on 04-18-2025 Platelets (Bld) [#/Vol] 279 10*3/uL 150-450 [facility] Prothrombin timeOrdered By: Hansel Ware on 04-18-2025 PT Coag (PPP) [Time] 12.7 s 11.7-14.9 [facility] RBC Auto (Bld) [#/Vol]Ordere d By: Hansel Ware on 04-18-2025 RBC (Bld) [#/Vol] 5.28 10*6/uL 4.6-6.2 [facility] White blood cell (WBC) count Ordered By: Hansel Ware on 04-18-2025 WBC (Bld) [#/Vol] 12.1 10*3/uL High 4.4-11.0 [facility] HISTORY PHYSICALon HISTORY PHYSICAL HNO ID: [id number] Author: GERTRUDIS AMBROSIO MD Service: General Surgery Author Type: Physician Type: H&P Filed: 10/26/2023 09:20 Note Text: HISTORY AND PHYSICAL Will Marr 1950 REFERRING PHYSICIAN: [facility] CHIEF COMPLAINT: Consult (colonoscopy) HPI: [...] his family He is referred by the [place] - [facility] [place] [id number] for colonoscopy for screening for colon cancer [...] (EFFEXOR) 75 mg tablet 150 mg. PEG 7338-Tfaihfsficz-Us t C (MOVIPREP) 100-7.5-2.691 gram TAKE BEFORE [...] and denies voices (more content not included)... [facility] NURSING PROGon 10-26-2023 NURSING PROG HNO ID: [id number] Author: MAJO CHAVIS RN Service: ? Author Type: Registered Nurse Type: Nursing Progress Note Filed: 10/26/2023 09:28 Note Text: Patient used restroom middle of pre procedure preparation, he reports his stool was semi solid and dark brown. He determined he should cancel procedure at this time and reschedule. Dr Ambrosio notified [facility] NURSING PROG HNO ID: [id number] Author: MAJO CHAVIS RN Service: ? Author [...] would like to proceed at this time. Normal [facility] CNOVon 10-09-2023 CNOV Office Visit (GENSWS) ---- WILL MARR ([id number]) 1950 M Date Time Provider Department 10/09/23 [...] AND PHYSICAL Will Marr 1950 REFERRING PHYSICIAN: [facility] CHIEF COMPLAINT: Consult (colonoscopy) HPI: [...] his family [facility] is [facility] the [facility] - referral [facility] [id number] for colonoscopy for screening for colon cancer [...] (EFFEXOR) 75 mg tablet 150 mg. PEG 0593-Zpdbbigaiej-Vv t C (MOVIPREP) 100-7.5-2.691 gram TAKE BEFORE PROCEDURE BY MOUTH ONE TIME (more content not included)... Normal [facility] WILL MARR ([id number]) 1950 M Date Time Provider Department 10/09/23 [...] AFTER FIRST USE) DOSE CHANGE - PEG 2595-Znvxcejtmfb-Go t C (MOVIPREP) 100-7.5-2.691 gram - rosuvastatin [...] Status:Closed by IVONE CHARLES on 12/05/23 Normal [facility] Absolute lymphocyte countOrd ered By: Hansel Ware on 05-04-2023 Lymphocytes Auto (Unsp spec) [#/Vol] 2.38 10*3/uL 0.83-4.51 [facility] Basophil percentageOrdered B y: Hansel Ware on 05-04-2023 Basophil percentage 10-25 SEEN /hpf 0-5 [facility] Basophils/100 WBC (Bld) 0.8 % 0-1 [facility] Chloride [Moles/Vol] 103 mmol/L 98-107 [facility] Eosinophils/100 WBC (Bld) 4.6 % 0-5 [facility] Glucose [Mass/Vol] 182 mg/dL 74-106 [facility] Comment on above: Fasting Glucose resu lt greater than or equal to 126 mg/dL suggests DIABETES MELLITUS per A.D.A. criteria. Neutrophils (Bld) [#/Vol] 4.5 10*3/uL 2.0-7.7 [facility] Neutrophils/100 WBC (Bld) 56.1 % 47-70 [facility] Potassium [Moles/Vol] 3.9 mmol/L 3.5-5.1 [facility] Sodium [Moles/Vol] 137 mmol/L 136-145 [facility] WBC (Bld) [#/Vol] 8.0 10*3/uL 4.4-11.0 [facility] Bilirubin Test strip Ql (U)O rdered By: Hansel Ware on 05-04-2023 Bilirubin Ql (U) 1 mg/dL Negative [facility] Comment on above: COLOR OF URINE MAY A FFECT DIPSTICK RESULTS. Blood erythrocytes count (nu mber/volume)Ordered By: Hansel Ware on 05-04-2023 RBC (Bld) [#/Vol] 5.14 10*6/uL 4.6-6.2 [facility] Blood hemoglobin measurement (mass/volume)Ordered By: Hansel Ware on 05-04-2023 Hemoglobin (Bld) [Mass/Vol] 15.3 g/dL 13.0-16.5 [facility] Blood lymphocytes/100 leukoc ytesOrdered By: Hansel Ware on 05-04-2023 Lymphocytes/100 WBC (Bld) 29.8 % 19-41 [facility] Blood monocytes/100 leukocyt esOrdered By: Hansel Ware on 05-04-2023 Monocytes/100 WBC (Bld) 8.4 % 0-10 [facility] Blood platelet mean volumeOr dered By: Hansel Ware on 05-04-2023 Platelet mean volume (Bld) [Entitic vol] 8.9 fL 6.2-12.0 [facility] Determination of erythrocyte mean corpuscular volume (MCV)Ordered By: Hansel Ware on 05-04-2023 MCV (RBC) [Entitic vol] 85.6 fL 80-94 [facility] Hematocrit Auto (Bld) [Volum e fraction]Ordered By: Hansel Ware on 05-04-2023 Hematocrit (Bld) [Volume fraction] 44.0 % 40-54 [facility] Ketones Test strip Ql (U)Ord ered By: Hansel Ware on 05-04-2023 Ketones Ql (U) 15 mg/dl Negative [facility] Laboratory - Chemistry and C hemistry - challengeOrdered By: Hansel Ware on 05-04-2023 CO2 [Moles/Vol] 24.0 mmol/L 21.0-32.0 [facility] Urea nitrogen/Creatinine [Mass ratio] 15.7 mg/mg 10-20 [facility] Laboratory - Hematology and Cell countsOrdered By: Hansel Ware on 05-04-2023 Erythrocyte distribution width (RBC) [Entitic vol] 39.0 fL 35.1-43.9 [facility] Erythrocyte distribution width (RBC) [Ratio] 12.6 % 11.6-14.6 [facility] Immature granulocytes/100 WBC (Bld) 0.300 % 0.0-0.9 [facility] Comment on above: IG% - Immature Granu locytes (promyelocytes, myelocytes and metamyelocytes) > 1% indicates that a LEFT SHIFT is Present. MCH (RBC) [Entitic mass] 29.8 pg 27.0-32.0 [facility] Nucleated RBC/100 WBC (Bld) [Ratio] 0 % 0-5 [facility] MCHC Auto (RBC) [Mass/Vol]Or dered By: Hansel Ware on 05-04-2023 MCHC (RBC) [Mass/Vol] 34.8 g/dL 32-36 [facility] Mucus LM Ql (Urine sed)Order ed By: Hansel Ware on 05-04-2023 Mucus Ql (Urine sed) 0 SEEN /hpf [facility] Nitrite Test strip Ql (U)Ord ered By: Hansel Ware on 05-04-2023 Nitrite Ql (U) Positive Negative [facility] No Panel InformationOrdered By: Hansel Ware on 05-04-2023 Estimated Creatinine Clearance Calc 58.06 ml/min [facility] Estimated GFR (MDRD) Amer 80 mL/min >60 [facility] Comment on above: GFR Calc Estimated GFR (MDRD) Non-Af Amer 66 mL/min >60 [facility] Comment on above: Non- GFR Calc Platelets bldOrdered By: Rajan Ware on 05-04-2023 Platelets (Bld) [#/Vol] 250 10*3/uL 150-450 [facility] Protein Test strip Ql (U)Ord ered By: Hansel Ware on 05-04-2023 Protein Ql (U) 100 mg/dl Negative [facility] Serum or plasma calcium kaden urement (mass/volume)Ordered By: Hansel Ware on 05-04-2023 Calcium [Mass/Vol] 9.8 mg/dL 8.5-10.1 [facility] Serum or plasma creatinine m easurement (mass/volume)Ordered By: Hansel Ware on 05-04-2023 Creatinine [Mass/Vol] 1.15 mg/dL 0.70-1.30 [facility] Comment on above: The validity of the calculated GFR & GFRAA in patients over 70 years has not been determined. Clinical correlation is essential. Serum or plasma urea nitroge n measurement (mass/volume)Ordered By: Hansel Ware on 05-04-2023 Urea nitrogen [Mass/Vol] 18 mg/dL 7-18 [facility] Squamous epithelial cells de tection in urine sediment by light microscopyOrdered By: Hansel Ware on 05-04-2023 Epithelial cells.squamous LM Ql (Urine sed) 0 SEEN /hpf 0-5 [facility] Thin prep Papanicolaou smear with manual screeningOrdered By: Hansel Ware on 05-04-2023 Thin prep Papanicolaou smear with manual screening 10 5-15 [facility] Urine blood detectionOrdered By: Hansel Ware on 05-04-2023 RBC Ql (U) 250 /ul Negative [facility] RBC Ql (U) > 100 SEEN /hpf 0-5 [facility] Urine clarityOrdered By: aRjan Ware on 05-04-2023 Clarity (U) Cloudy Clear [facility] Urine color determinationOrd ered By: Hansel Ware on 05-04-2023 Color (U) Yellow Yellow [facility] Urine glucose detectionOrder ed By: Hansel Ware on 05-04-2023 Glucose Ql (U) 100 mg/dl Normal [facility] Urine leukocyte esterase det ection by dipstickOrdered By: Hansel Ware on 05-04-2023 Leukocyte esterase Test strip Ql (U) 100 /ul Negative [facility] Urine pHOrdered By: Hansel Ware on 05-04-2023 pH (U) 5.0 [pH] 5.0 - 8.0 [facility] Urine sediment bacteria coun t by microscopy (number/high power field)Ordered By: Hansel Ware on 05-04-2023 Bacteria LM.HPF (Urine sed) [#/Area] 3 /[HPF] None Seen [facility] Urine specific gravity measu rementOrdered By: Hansel Ware on 05-04-2023 Specific gravity (U) [Rel density] 1.025 1.002-1.030 [facility] Urobilinogen Auto test strip Ql (U)Ordered By: Hansel Ware on 05-04-2023 Urobilinogen Ql (U) 4 mg/dl Normal [facility] Emergency Department Summary on 08-08-2022 Emergency Department Summary [facility] Medical Records Department [address] [place] [id number] Emergency Department Summary 08/08/22 MR#: [id number] Acct: [id number] Name: WILL MARR Rep #: [id number] : 1950 72 From: Hansel Ware MD PCP: [facility] Status:REG ER Location: ED HPI HPI - [...] but he ran out 4 days ago. [facility] Medical History Diabetes Hyperlipidemia Hypertension Myocardial infarct [...] Method [ (more content not included)... Normal [facility] Vital Signs Date Time Vital Sign Value Performing Clinician Ismai margarita 04-18-2025 09:29-0400 Diastolic blood pressure 71 mm[Hg] [facility] 04-18-2025 09:29-0400 Heart rate 106 /min [facility] 04-18-2025 09:29-0400 Respiratory rate 16 /min [facility] 04-18-2025 09:29-0400 SaO2% (BldA) [Mass fraction] 99 % [facility] 04-18-2025 09:29-0400 Systolic blood pressure 90 mm[Hg] [facility] 04-18-2025 08:51-0400 Body height 175.26 cm [facility] 04-18-2025 08:51-0400 Body mass index (BMI) [Ratio] 24.1 kg/m2 [facility] 04-18-2025 08:51-0400 Body temperature 97.5 [degF] [facility] 04-18-2025 08:51-0400 Body weight 74.1 kg [facility] 10-09-2023 10:46-0500 Body height 175.3 cm Gertrudis Ambrosio MD Work Phone: [facility] 10-09-2023 10:46-0500 Body temperature 97 [degF] Gertrudis Ambrosoi MD Work Phone: [facility] 10-09-2023 10:46-0500 Body weight 70.76 kg Gertrudis Ambrosio MD Work Phone: [facility] 10-09-2023 10:46-0500 Diastolic blood pressure 78 mm[Hg] Gertrudis Ambrosio MD Work Phone: [facility] 10-09-2023 10:46-0500 Heart rate 94 /min Gertrudis Ambrosio MD Work Phone: [facility] 10-09-2023 10:46-0500 SaO2% (BldA) [Mass fraction] 95 % Gertrudis Ambrosio MD Work Phone: [facility] 10-09-2023 10:46-0500 Systolic blood pressure 130 mm[Hg] Gertrudis Ambrosio MD Work Phone: [facility] 05-04-2023 09:21-0400 Diastolic blood pressure 62 mm[Hg] [facility] 05-04-2023 09:21-0400 Heart rate 74 /min [facility] 05-04-2023 09:21-0400 Respiratory rate 16 /min [facility] 05-04-2023 09:21-0400 SaO2% (BldA) [Mass fraction] 99 % [facility] 05-04-2023 09:21-0400 Systolic blood pressure 118 mm[Hg] [facility] 05-04-2023 06:33-0400 Body height 175.26 cm [facility] 05-04-2023 06:33-0400 Body mass index (BMI) [Ratio] 23.6 kg/m2 [facility] 05-04-2023 06:33-0400 Body temperature 96.3 [degF] [facility] 05-04-2023 06:33-0400 Body weight 72.57 kg [facility] 08-08-2022 06:39-0500 Diastolic blood pressure 86 mm[Hg] [facility] Work Phone: 08-08-2022 06:39-0500 Heart rate 85 /min [facility] Work Phone: 08-08-2022 06:39-0500 Respiratory rate 16 /min [facility] Work Phone: 08-08-2022 06:39-0500 SaO2% (BldA) [Mass fraction] 100 % [facility] Work Phone: 08-08-2022 06:39-0500 Systolic blood pressure 149 mm[Hg] [facility] Work Phone: 08-08-2022 06:27-0500 Inhaled oxygen flow rate 2 L/min [facility] Work Phone: 08-08-2022 06:26-0500 Body temperature 98.6 [degF] [facility] Work Phone: 08-08-2022 01:55-0500 Body height 175.26 cm [facility] Work Phone: 08-08-2022 01:55-0500 Body mass index (BMI) [Ratio] 24 kg/m2 [facility] Work Phone: 08-08-2022 01:55-0500 Body weight 73.8 kg [facility] Work Phone: Encounters Encounter Date Encounter Type Care Provider Facility Start: 04-18-2025 Evaluation and manag ement of inpatient Dr. Charlotte Villaseñor MD -Intensive Care Unit Work Phone: Start: 10-26-2023 ambulatory GERTRUDIS AMBROSIO Facili ty:[facility] Start: 10-26-2023 End: 10-26-2023 Subsequent hospital visit by physician Gertrudis Ambrosio MD Work Phone: Ambulatory Surgery Comment on above: Screening for colon cancer [Z12.11] Start: 10-09-2023 Telephone encounter Gertrudis Allred MD Work Phone: General Surgery Comment on above: 10/26/2023 [facility] Start: 10-09-2023 End: 10-09-2023 ambulatory GERTRUDIS AMBROSIO Facility:[facility] Start: 10-09-2023 End: 10-09-2023 Patient encounter procedure Gertrudis Ambrosio MD Work Phone: General Surgery Comment on above: Screening for colon cancer; Antiplatelet or antithrombotic long-term use Start: 05-04-2023 End: 05-04-2023 Emergency department patient visit [facility]Emergency Department Work Phone: Start: 08-08-2022 End: 08-08-2022 Emergency department patient visit Dr. Hansel Ware Facility:[facility] Start: 08-08-2022 End: 08-08-2022 Emergency department patient visit [facility]Emergency Department Procedures Date Procedure Procedure Detail Performing Clinician Start: 05-04-2023 Computed tomography of abdomen and pelvis with intravenous contrast Plan of Treatment Date Care Activity Detail Author Start: 07-27-2025 Urine microalbumin profile DTaP,Tdap,Td Vaccine (3 - Td or Tdap) [facility] Start: 04-18-2025 [facility] Start: 04-18-2025 Plain chest X-ray Chest 1 View (Portable) [facility] Start: 04-18-2025 XR Chest Single view [facility] Start: 04-18-2025 [facility] Start: 08-27-2023 Advance Directive Discussion Advance Directive Discussion [facility] Start: 08-27-2023 Behavioral Health Screening Behavioral Health Screening [facility] Start: 08-27-2023 Depression Assessment Depression Ass essment [facility] Start: 05-04-2023 Bacteria identified in Urine by Culture Urine Culture [facility] Start: 05-04-2023 [facility] Start: 04-27-2023 Covid-19 Vaccine () Covid-19 Vaccine () [facility] Start: 2010 RSV Vaccine (1 - 1-d ose 60+ series) RSV Vaccine (1 - 1-dose 60+ series) [facility] Start: 1995 Diabetes Screening Diabetes Screenin g [facility] Start: 1995 Screening for malign ant neoplasm of colon [facility] Start: 1985 Lipid panel Lipid Screening [facility] Start: 1968 Hepatitis C screening Hepatitis C Sc reening [facility] Start: 1950 Abdominal aortic aneurysm screening Abdominal Aortic Aneurysm Screening [facility] Anion gap in Serum o r Plasma [facility] BUN/Creatinine ratio [facility] Calcium [Mass/volume ] in Serum or Plasma [facility] Carbon dioxide, tota l [Moles/volume] in Central venous blood [facility] Creatinine [Mass/vol ume] in Serum or Plasma [facility] Glucose [Mass/volume ] in Serum or Plasma [facility] Measurement of renal function [facility] Patient Education [facility] Work Phone: Patient referral [facility] Work Phone: Potassium measurement [facility] End: 10-09-2024 Screening colonoscopy COLONOSCOPY SCREENING Endoscopy Routine Screening for colon cancer 1 Occurrences starting 10/09/2023 until 10/09/[address] [facility] Work Phone: Comment on above: 1 Occurrences starti ng 10/09/2023 until 10/09/2024 Serum chloride measurement [facility] Sodium measurement [facility] Troponin T.cardiac [Mass/volume] in Serum or Plasma by High sensitivity method [facility] Urea nitrogen [Mass/volume] in Serum or Plasma [facility] Payers Date Payer Category Payer Self-pay [id number] 2019 [facility] ( and others) [id number] 2019 Private Health Insurance [facility] [employer] [id number] 2019-Present [phone] [address] [place] [address] PPO [id number] 2005 Unknown [id number] Medicare [id number] Unknown [id number] Social History Date Type Detail Facility Start: 08-08-2022 End: 05-04-2023 Tobacco smoking status MOIS Unknown if ever smoked [facility] Start: 1950 Sex Assigned At Male [facility] Start: 10-09-2023 End: 04-18-2025 Tobacco smoking status NHIS Ex-smoker [facility] History of tobacco use Current smoker [facility] History of tobacco use Cigar Smoker [facility] Start: 10-09-2023 Tobacco use and exposure Smokeless tobacco non-user [facility] Start: 10-09-2023 Alcohol intake Current drinke r of alcohol (finding) [facility] Start: 10-09-2023 History of Social function [facility] Start: 10-09-2023 Tobacco use panel [facility] National Score (1-100), lower number is lower risk 70 [facility] Start: 10-09-2023 Alcohol Comment [facility] Start: 1950 Sex Assigned At Not on file [facility] Mental Status Date Assessment Result Facility 04-18-2025 Cognitive function Voice/Name [facility] Work Phone: 08-08-2022 Cognitive function Follows Commands;Drows y [facility] Work Phone: Clinical Notes 10-09-2023 to 12-05-2023 [...] PRIOR TO PROCEDURE documented in this encounter [facility] 10-26-2023 History and physical note UPDATED PROCEDURAL [...] AND PHYSICAL Will Marr 1950 REFERRING PHYSICIAN: [facility] CHIEF COMPLAINT: Consult (colonoscopy) HPI: [...] his family [facility] [id number] for colonoscopy for screening for colon cancer [...] (EFFEXOR) 75 mg tablet 150 mg. PEG 5599-Qspxrdraonc-Oay C (MOVIPREP) 100-7.5-2.691 gram TAKE BEFORE PROCEDURE [...] AND PHYSICAL Will Marr 1950 REFERRING PHYSICIAN: [facility] CHIEF COMPLAINT: Consult (colonoscopy) HPI: The [...] his family He is [facility] by the [facility] - referral number [id number] for colonoscopy for screening for colon cancer [...] (EFFEXOR) 75 mg tablet 150 mg. PEG 9973-Rshkihzumfy-Opz C (MOVIPREP) 100-7.5-2.691 gram TAKE BEFORE PROCEDURE [...] Gertrudis Ambrosio MD documented in this encounter [facility] 10-26-2023 Nurse Note Patient used restroom middle [...] at this time. documented in this encounter [facility] 10-09-2023 Note HNO ID: [id number] Author: GERTRUDIS AMBROSIO MD Service: ? Author Type: Physician Type: Progress Notes Filed: 10/12/2023 12:27 Note Text: HISTORY AND PHYSICAL Will Marr 1950 REFERRING PHYSICIAN: [place] Babat[facility] Gonzalez CHIEF COMPLAINT: Consult (colonoscopy) HPI: The patient [...] his family [facility] is [facility] the [facility] - [facility] [id number] for colonoscopy for screening for colon cancer [...] (EFFEXOR) 75 mg tablet 150 mg. PEG 5153-Eoartvxmmkr-Hjw C (MOVIPREP) 100-7.5-2.691 gram TAKE BEFORE PROCEDURE [...] entered by the nurse and reviewed by md Nursing Notes: Milagro Lopez RN 10/09/2023 10:52 [...] psychiatric medications, pablo (more content not included)... [facility] 10-09-2023 History of Presen t illness Narrative HISTORY AND PHYSICAL Will Marr 1950 REFERRING PHYSICIAN: [facility]at[facility] Gonzalez CHIEF COMPLAINT: Consult (colonoscopy) HPI: The patient [...] his family [facility] is [facility] the [facility] - [facility] [id number] for colonoscopy for screening for colon cancer [...] (EFFEXOR) 75 mg tablet 150 mg. PEG 4060-Kiljcrdxxvw-Daf C (MOVIPREP) 100-7.5-2.691 gram TAKE BEFORE PROCEDURE [...] entered by the nurse and reviewed by md Nursing Notes: Milagro Lopez RN 10/09/2023 10:52 [...] will be scheduled for the procedure at [facility]. Diagnoses: (Z12.11) Screening for colon cancer (Z79.02) Antiplatelet or antithrombotic long-term use I have confirmed and edited as necessary, the PFSH and ROS obtained by others. Consultation requested by Administration at [place] for an opinion regarding patient's screening for colon cancer. My final recommendations will be communicated back to the requesting physician by way of shared Medical record or letter to requesting physician via US mail. Medical Decision Making: Risk: Low: Low risk from testing/treatment Medical Decision Making Level: 2 - Straightforward Gertrudis Ambrosio MD documented in this encounter [facility] 10-09-2023 Nurse Note REVIEW OF SYSTEMS: General: [...] Milagro Lopez RN documented in this encounter [facility] Evaluation note No assessment inform ation available [facility] Work Phone: Evaluation note Diagnosis Screening for colon cancer Special screening for malignant neoplasms, colon Antiplatelet or antithrombotic long-term use Encounter for long-term (current) use of antiplatelets/antithrombotics documented in this encounter [facility] Diagnosis Screening for colon cancer- Primary Special screening for malignant neoplasms, colon documented in this encounter [facility] for referral (narrative)* Outpatient Procedure (Routine) - Authorized Specialty Diagnoses / Procedures Referred By Contac t Referred To Contact [facility] Diagnoses Screening for colon cancer Procedures COLONOSCOPY SCREENING COLONOSCOPY FLX DX W/COLLJ SPEC WHEN Gertrudis Stark MD [address] [place] [address] [facility] [id number] [place] [address] Referral ID Status Reason Start Date Expiration Date Visits Requested Visits Authorized [id number] Authorized Auto-Generat ed Referral 3 04/06/2024 [address] [facility] for referral (narrative)No reason for referral [facility] Work Phone: Reason for visit Narrative* Outpatient Procedure (Routine) - Authorized Specialty Diagnoses / Procedures Referred By Contac t Referred To Contact [facility]EST[facility] DISE[facility] Diagnoses Screening for colon cancer Procedures COLONOSCOPY SCREENING COLONOSCOPY FLX DX W/COLLJ SPEC WHEN Gertrudis Stark MD [address] [place] [address] [facility] [address] [place] [address] Referral ID Status Reason Start Date Expiration Date Visits Requested Visits Authorized [id number] Authorized Auto-Generat ed Referral 3 04/06/2024 1 1 [facility] Chief Complaint and Reason for Visit Chief Complaint CONSTIPATION Chief Complaint back/abd pain Chief Complaint Admit Date STEMI April 18, 2025 9: 20am Advance Directives Advance Directive Response Recorded Date/ Time Living Will No August 08 022 1:57am Power of Community Theater Actor No August 08, 2022 1:57am Advance Directive Response Recorded Date/ Time Living Will Yes May 04 023 6:35am Power of Community Theater Actor Yes May 04, 2023 6:35am Name of Medical Power of Community Theater Actor Darci Marquez May 04, 2023 6:35am Advance Directive Response Recorded Date/ Time Do you have a Healthcare Power of Community Theater Actor? No April 18, 2025 8:55am Summary Purpose Family History No Family History Records FoundNo Family History Records Found Additional Source Comments Goals (unrecognized section and content) Goals may be documented in a n alternate sectionGoals may be documented in an alternate sectionGoals may be documented in an alternate section (unrecognized sect ion and content) No Status Records FoundNo Status Records Found INFORMATION SOURCE (unrecogn ized section and content) DATE CREATED AUTHOR 08/18/2022 [facility] DATE CREATED AUTHOR AUTHOR'S ORGANIZ ATION 12/06/2023 [facility] Care Teams (unrecognized sec tion and content) Team Status: Active Member Role Status Dates [facility] Family Provider Active [facility] Primary Care Provider Active Team Status: Inactive Member Role Status Dates [facility] Primary Care Provider Active Dr. Hansel Ware MD Emergency Provider Active Chart Snatcher Relationship Specialty Start Date End Date [facility] [address] [place] [address] PCP - General 10/09/23 Chart Snatcher Relationship Specialty Start Date End Date [facility] [address] [place] [address] PCP - General 10/09/23 Chart Snatcher Relationship Specialty Start Date End Date [facility] [address] [place] [address] PCP - General 10/09/23 Team Status: Active Member Role/Relationship Status Dates [facility] Primary Care Provider Active Team Status: Active Member Role/Relationship Status Dates [facility] Primary Care Provider Active Start: April 18, 2025 Dr. Charlotte Villaseñor MD Admit Provider Active Start: April 18, 2025 Dr. Chalrotte Villaseñor MD Attending Provider Activ e Start: April 18, 2025 Dr. Charlotte Villaseñor MD Referring Provider Activ e Start: April 18, 2025 Dr. Hansel Ware MD Emergency Provider Active Start: April 18, 2025 Source Comments (unrecognize d section and content) In the event this informatio n is protected by the Federal Confidentiality of Alcohol and Drug Abuse Patient Records regulations: The Federal rules restrict any use of the information to criminally investigate or prosecute any alcohol or drug abuse patient.[facility] the event this information is protected by the Federal Confidentiality of Alcohol and Drug Abuse Patient Records regulations: The Federal rules restrict any use of the information to criminally investigate or prosecute any alcohol or drug abuse patient.[facility] the event this information is protected by the Federal Confidentiality of Alcohol and Drug Abuse Patient Records regulations: The Federal rules restrict any use of the information to criminally investigate or prosecute any alcohol or drug abuse patient.[facility] Reason for Visit (unrecogniz ed section and content) Reason Comments Consult colonoscopy Specialty Diagnoses / Procedures Referred By Contac t Referred To Contact General Surgery / GENERAL SURGERY Diagnoses Encounter for screening for malignant neoplasm of colon COLON CONSULT - [facility] REFERRING - IN SCANNED DOC, [facility] printed CT scan report, no prior colonoscopy noted. mjs, Procedures OFFICE/OUTPATIENT [facility] MDM 60 MINUTES [facility] [address] [place] [address] Gertrudis Ambrosio MD [address] [place] [address] Referral ID Status Reason Start Date Expiration Date Visits Re quested Visits Authorized [id number] Closed 08/06/2023 02/02/2024 1 1 Reason Comments [...] BE BASED ON THE PRIMARY CLINICAL RECORDS. [facility]. provides no warranty or guarantee of the accuracy or completeness of information in this document.
--- NOTE | 2025-04-18 15:48 | PCA ---
[facility], [facility], [facility].
--- NOTE | 2025-04-18 16:24 | PCM.CONS.C ---
Assessment & Plan Assessment/Plan (1) ST elevation (STEMI) myocardial infarction: QUALIFIERS: Involved coronary artery: right coronary artery Qualified Code(s): I21.11 - ST elevation (STEMI) myocardial infarction involving right coronary artery PLAN: Please refer to the HPI and cath report for details. Patient was in cardiogenic shock, had severe complex multivessel disease. PCI of the RCA, LAD and OM1 were performed, balloon pump placed and patient was transferred to [facility]. He requires either further optimization of the stents placed with Impella support or CABG. HPI Consult Data Date of Consult: 04/18/25 HPI Narrative Reason for Consultation: Inferior STEMI HPI Narrative: DYLON CHEN, is a 74 M who presents with chest pain. EKG done outside the hospital revealed inferior ST elevation GA and a STEMI alert was called. Patient was brought emergently to the cardiac [employer] and underwent coronary angiography which revealed significant multivessel disease. RCA appeared to be the culprit but was a very tortuous vessel that was occluded distally. With difficulty the lesion was crossed and balloon angioplasty was performed to restore flow in the RCA. Patient went into cardiogenic shock and the Levophed was started. He continued to remain hypotensive. We felt that the significant disease in the LAD and circumflex was also contributing to the hypotension and cardiogenic shock. PTCA and stent placement of the LAD was performed PTCA alone of the circumflex was performed. Please refer to the cath report for full details. During the procedure patient also briefly went into PEA but regained a pulse very small. He did not require intubation. A balloon pump was placed. Patient is very unstable with multivessel disease that is complex associated with cardiogenic shock. We felt that he is better managed at a tertiary center and contacted [facility]. Discussed with Dr. Flores at [facility]. Patient was stabilized and transferred to [facility] for either Impella assisted PCI or CABG. [facility] Medical History Myocardial infarct Hyperlipidemia Diabetes Hypertension Home Medications ?Medication ?Instructions ?Recorded ?Last Taken ?Type aspirin 325 mg tablet,delayed 81 mg PO DAILY 10/27/17 Unknown History release metoprolol tartrate 25 mg tablet 25 mg PO BID 10/27/17 Unknown History simvastatin 80 mg tablet (Zocor) 40 mg PO QHS 10/27/17 Unknown History venlafaxine 75 mg tablet 75 mg PO BID 10/27/17 Unknown History dulaglutide 0.75 mg/0.5 mL 0.75 mg subcut QWEEK 05/04/23 Unknown History subcutaneous pen injector glipizide 5 mg tablet 5 mg PO DAILY 05/04/23 Unknown History metformin 1,000 mg tablet 1,000 mg PO BID 05/04/23 Unknown History insulin glargine-yfgn 100 unit/mL 15 unit subcut QDAY 04/18/25 Unknown History (3 mL) subcutaneous pen rosuvastatin 40 mg tablet (Crestor) 40 mg PO DAILY 04/18/25 Unknown History venlafaxine 150 mg 300 mg PO DAILY 04/18/25 Unknown History capsule,extended release 24 hr (Effexor XR) Allergy/AdvReac Type Severity Reaction Status Date / Time No Known Allergies Allergy Verified 05/04/23 06:37 Surgical History History of coronary artery stent placement Social History Smoking Status: Former smoker Physical Exam Const alert and oriented x3 Constitutional Narrative: In significant distress due to chest pain. Patient was not fully cooperative during the cardiac catheterization and kept moving his arm and also his legs which made the procedure very difficult. HEENT normocephalic Charges/Coding Visit Charges Inpatient E&M: 68615 Init Hosp L2 Objective Data Vital Signs: Vital Signs Temp Pulse Resp BP Pulse Ox O2 Del Method 97.5 F L 106 H 16 90/71 99 Room Air 04/18/25 08:51 04/18/25 09:29 04/18/25 09:29 04/18/25 09:29 04/18/25 09:29 04/18/25 09:11 Oxygen Delivery Method Room Air Weight: 163 lb 5.8 oz Body Mass Index (BMI) 24.1 Intake & Output: Intake and Output for Last 24 Hours 04/16/25 04/17/25 04/18/25 23:59 23:59 23:59 Intake Total 0 / 0 Balance 0 / 0 Lab / Micro Data 04/18/25 09:00 04/18/25 09:00 Labs: Laboratory Results - last 24 hr 04/18/25 09:00: WBC 12.1 H, RBC 5.28, Hgb 15.4, Hct 46.0, MCV 87.1, MCH 29.2, MCHC 33.5, RDW Std Deviation 40.9, RDW Coeff of Keshia 13.0, Plt Count 279, MPV 9.7, Immature Gran % (Auto) 0.500, Neut % (Auto) 54.0, Lymph % (Auto) 34.1, Mcdonald % (Auto) 8.3, Eos % (Auto) 2.5, Baso % (Auto) 0.6, Absolute Neuts (auto) 6.5, Absolute Lymphs (auto) 4.11, Nucleated RBC % 0, PT 12.7, INR 0.9, APTT 28.0, Sodium 137, Potassium 4.1, Chloride 95 L, Carbon Dioxide 20.3 L, Anion Gap 22 H, BUN 13, Creatinine 1.03, Estim Creat Clear Calc 62.92, Est GFR (MDRD) Non-Af 76, BUN/Creatinine Ratio 12.1, Glucose 275 H, Calcium 9.9, Troponin T High Sens 1953 H* Rhythm Strip Rhythm Strip: Sinus Tach Rate: 109 Ectopy: None Cardiology Labs/Tests 04/18/25 09:00: WBC 12.1 H, RBC 5.28, Hgb 15.4, Hct 46.0, MCV 87.1, MCH 29.2, MCHC 33.5, Plt Count 279, MPV 9.7, Immature Gran % (Auto) 0.500, Neut % (Auto) 54.0, Lymph % (Auto) 34.1, Mcdonald % (Auto) 8.3, Eos % (Auto) 2.5, Baso % (Auto) 0.6, Absolute Neuts (auto) 6.5, Nucleated RBC % 0, PT 12.7, INR 0.9, APTT 28.0, Sodium 137, Potassium 4.1, Chloride 95 L, Carbon Dioxide 20.3 L, Anion Gap 22 H, BUN 13, Creatinine 1.03, Est GFR (MDRD) Non-Af 76, BUN/Creatinine Ratio 12.1, Glucose 275 H, Calcium 9.9 Rhythm: EKG: ECHO: Stress Test: Cardiac Cath: PCI: CT Surgery: Holter monitor: EPS: PPM: CXR: Chest CT Scan: Radiography Diagnostic Testing: Radiology Impression Chest X-Ray 04/18/25 08:56 IMPRESSION: No acute cardiopulmonary abnormalities. Reading Location: [facility] FANNIE Risk Score for UA/STEMI Assesmment (YES = 1) Risk Stratification Applicable: No
--- NOTE | 2025-04-18 17:37 | CL.I_ITS ---
Patient Name: DYLON CHEN Study Date: 04/18/2025 Performing: Wesly Villaseñor MD Ht: 69 inches 175.26 cm : 1950 Wt: 163.6 lbs 74.1 kg Age: 74 Gender: male BSA: 1.9 PROCEDURE(S) PERFORMED DC02-([id number])LHC/COR IC16-([id number])AMI, TATYANA OR PTCA, ARTERY/GRAFT, SINGLE VESSEL IC12-([id number]/[id number])TATYANA W/WO PTCA, SINGLE CORONARY ARTERY IC01-([id number])PTCA, SINGLE CORONARY ARTERY DC14-([id number])IABP INSERTION (IP status) CLINICAL PROFILE AND CO-MORBIDITIES Indications: ACS <= 24 hrs, STEMI Heart Failure: None CONCLUSIONS Severe multivessel coronary artery disease. Cardiogenic shock. Cardiac arrest due to PEA. Unsuccessful PCI of the RCA. PTCA alone to in-stent restenosis of OM1. TATYANA to LAD. RECOMMENDATIONS DESCRIPTION OF PROCEDURE The patient arrived to the procedure lab. The risks and benefits of the procedure as well as a full description of our services here and lack of surgical backup were fully explained to the patient and/or their significant other prior to the catheterization. The Timeout was completed, verifying the correct patient and procedure. The patient's procedural site was prepped and draped in the usual fashion. Local anesthetic was given subcutaneously to right radial region with Lidocaine 2%. Local anesthetic was given subcutaneously to right groin region with Lidocaine 2%. Using a modified Seldinger technique, arterial access was obtained via the right radial artery, a 6Fr sheath was inserted., arterial access was obtained via the right femoral artery, with Micropuncture set, arterial access was obtained via the right radial artery, a 6Fr sheath was inserted.. Left Coronary Artery selective angiography was performed in multiple views using a 5 Fr. JL3.5 catheter. Right Coronary Artery selective angiography was then performed in multiple views using a 5 Fr. JR 4 catheter. LV to AO Arrow 40cc 7.5F UltraFlex IABP - Qty: 1 Each Part #: [id number], A 7Fr 40cc IABP catheter was inserted into the right femoral artery, IABP Augumented BP: 149 mmHg Systemic BP: 99 mmHg, The IABP catheter and sheath were secured in place, IABP Augumented BP: 125 mmHg Systemic BP: 88 mmHg, IABP Augumented BP: 122 mmHg Systemic BP: 86 mmHg, IABP Augumented BP: 110 mmHg Systemic BP: 75 mmHgThe images were reviewed and options discussed. A decision was then made to proceed with an Intervention, IVUS or other adjunct procedure. AL1 Guide catheter was inserted and engaged into the RCA. BMW Guide wire was advanced to the RCA. 2x12 Emerge Balloon catheter was inserted. Balloon catheter was advanced across lesion in the right coronary, distal. PTCA balloon inflated at 6 atms for 20 secs. Angiogram performed post balloon dilatation. Balloon catheter was repositioned to additional lesion in the right coronary, distal. PTCA balloon inflated at 10 atms for 15 secs. PTCA balloon inflated at 6 atms for 10 secs. 3x15 Emerge Balloon catheter was inserted. Balloon catheter was advanced across lesion in the right coronary, ostial. PTCA balloon inflated at 8 atms for 16 secs. PTCA balloon inflated at 8 atms for 8 secs. PTCA balloon inflated at 10 atms for 10 secs. PTCA balloon inflated at 10 atms for 10 secs. PTCA balloon inflated at 10 atms for 14 secs. PTCA balloon inflated at 10 atms for 10 secs. Balloon catheter was advanced across lesion in the right coronary, ostial. 2x20 Emerge Balloon catheter was inserted. PTCA balloon inflated at 14 atms for 120 secs. 2.25x20 Emerge Balloon catheter was inserted. Balloon catheter was advanced across lesion in the right coronary, distal. PTCA balloon inflated at 6 atms for 10 secs. PTCA balloon inflated at 6 atms for 10 secs. PTCA balloon inflated at 6 atms for 7 secs. PTCA balloon inflated at 6 atms for 5 secs. PTCA balloon inflated at 6 atms for 8 secs. PTCA balloon inflated at 6 atms for 5 secs. PTCA balloon inflated at 6 atms for 10 secs. PTCA balloon inflated at 6 atms for 8 secs. 2.25x38 Blacklick Drug Eluting stent was inserted. Drug Eluting stent was advanced across the lesion in the right coronary, distal. XB3 Guide catheter was inserted and engaged into the LCA. 2.25x12 Emerge Balloon catheter was inserted. Balloon catheter was advanced across lesion in the LAD, proximal. PTCA balloon inflated at 12 atms for 10 secs. PTCA balloon inflated at 10 atms for 10 secs. 2.25x26 Blacklick Drug Eluting stent was inserted. Drug Eluting stent was advanced across the lesion in the LAD, proximal. PTCA balloon inflated at 16 atms for 9 secs. PTCA balloon inflated at 18 atms for 28 secs. 2.25x20 NC Emerge Balloon catheter was inserted. Balloon catheter was advanced across lesion in the LAD, proximal. PTCA balloon inflated at 22 atms for 31 secs. PTCA balloon inflated at 22 atms for 40 secs. Angiogram performed post stent deployment. 2.25x12 NC Emerge Balloon catheter was inserted. Balloon catheter was inserted post stent. Balloon catheter was advanced across lesion in the LAD, proximal. Runthrough Guide wire was advanced to the Circumflex. 2x12 Emerge Balloon catheter was inserted. Balloon catheter was advanced across lesion in the circumflex, mid. PTCA balloon inflated at 12 atms for 14 secs. PTCA balloon inflated at 12 atms for 12 secs. Angiogram performed post balloon dilatation. 2x12 Emerge Balloon catheter was inserted. Balloon catheter was advanced across lesion in the circumflex, mid. PTCA balloon inflated at 14 atms for 15 secs. PTCA balloon inflated at 12 atms for 12 secs. Angiogram performed post balloon dilatation. 3x15 Emerge Balloon catheter was inserted. Balloon catheter was advanced across lesion in the circumflex, mid. 2.75x12 NC Emerge Balloon catheter was inserted. Balloon catheter was advanced across lesion in the LAD, proximal. PTCA balloon inflated at 12 atms for 16 secs. PTCA balloon inflated at 20 atms for 20 secs. PTCA balloon inflated at 20 atms for 18 secs. AL1 Guide catheter was inserted and engaged into the RCA. BMW Guide wire was advanced to the RCA. 2.25x15 SC EUPHORA Balloon catheter was inserted. Balloon catheter was advanced across lesion in the right coronary, distal. Whisper Guide wire was advanced to the RCA. The arterial sheath was sutured in place with heparinized normal saline under pressure. The arterial sheath was pulled and a TR Band was applied for hemostasis. 10cc of air CORONARY ANGIOGRAPHY DOMINANCE: Right Dominant LEFT MAIN: Mild luminal irregularities LEFT ANTERIOR DESCENDING ARTERY: PROX LAD: 95% % Stenosis CIRCUMFLEX ARTERY: 80% stenosis in the AV groove circumflex immediately after the origin of a large OM1 branch. The OM1 branch has 50% stenosis in the proximal portion and 90% in-stent restenosis in the midportion. RIGHT CORONARY ARTERY: 80% stenosis in the ostial portion, moderate disease in the midportion, 100% occlusion in the distal portion. The distal occlusion appears to be the culprit for patient's STEMI. RCA is very tortuous. INTERVENTION INFORMATION LESION SITE: RCA (Distal) Lesion Complexity: High/C, chronic total occlusion: No, lesion at bifurcation: No, thrombus present: Yes, lesion length: 22 mm, culprit lesion: Yes, Previously treated lesion: No Pre Stenosis: 100 % Pre intervention FANNIE flow: 0 PROCEDURE: Balloon Angioplasty, Drug Eluting Stent with pre dilatation. The RCA was very tortuous. The lesion was crossed with difficulty. PTCA was performed successfully restoring flow. There was concern for dissection extending from the proximal to the distal RCA. To tack up the dissection the stent was deployed in the distal RCA. When we were getting ready to deploy the next stent in the mid RCA patient moved his arm and the wire and balloon came out of the RCA. At this point the patient was also hypotensive despite max dose of Levophed. Patient was in cardiogenic shock.. We felt that instead of attempting to rewire the RCA it would be better to proceed with PCI of the left system as we felt that his hypotension was out of proportion to the distal RCA lesion. We proceeded with PTCA of the LAD. Patient continued to remain hypotensive with a blood pressure in the 40s systolic. To stabilize the situation we deployed a stent in the LAD. However the stent did not expand well in the proximal portion despite multiple inflations with NC balloons. We then wired the OM1 branch and once again it was difficult to cross the lesion with a balloon. We managed to do PTCA with a 2.0 balloon. We then rewired the LAD and did PTCA within the stent.. At this point patient went into pulseless electrical activity briefly. CPR was initiated and the balloon was pulled back to restore flow into the LAD. This led to recovery of the blood pressure. Patient did not get intubated. We then inserted an intra-aortic balloon pump. Patient seemed stable on Levophed and with the balloon pump. We then went back to the RCA but could not go past the distal RCA stent. At this point we felt that since the patient is hemodynamically stable and he had been accepted to a tertiary center for further attempts at PCI would be better with Impella support. Alternatively CABG could also be considered. Patient was stabilized and transferred to [facility] for further care. Post Stenosis: 100 % Post intervention FANNIE flow: 0 Lesion Devices: Mayers .014 190cm BMW [place] Straight Cordis 6 Fr AL1.0 100cm Guide Catheter Vascular Solutions 6 Stateless GuideLiner Javad Sci EMERGE MR 2.00x12 BALLOON Javad Sci EMERGE MR 2.00x20 BALLOON Javad Sci EMERGE MR 3.00x15 BALLOON Javad Sci EMERGE MR 2.25x20 BALLOON Medtronic 2.25 x 38 BHAVANA FRONTIER TATYANA Medtronic SC EUPHORA RX 2.25x15 BALLOON Mayers .014 190cm HT Whisper MS Straight LESION SITE: RCA (Ostial) Lesion Complexity: High/C, chronic total occlusion: No, lesion at bifurcation: No, thrombus present: No, lesion length: 15 mm, culprit lesion: Yes, Previously treated lesion: No Pre Stenosis: 80 % Pre intervention FANNIE flow: 3 PROCEDURE: Balloon Angioplasty Post Stenosis: 80 % Post intervention FANNIE flow: 3 Lesion Devices: Javad Sci EMERGE MR 2.00x20 BALLOON Mayers .014 190cm BMW [place] Straight Cordis 6 Fr XB3.0 100cm Guide Catheter Medtronic 2.25 x 26 BHAVANA FRONTIER TATYANA Javad Sci NC EMERGE MR 2.25x20 BALLOON Javad Sci NC EMERGE MR 2.25x12 BALLOON LESION SITE: LAD (Proximal) Lesion Complexity: High/C, chronic total occlusion: No, lesion at bifurcation: No, thrombus present: No, lesion length: 22 mm, culprit lesion: Yes Pre Stenosis: 95 % Pre intervention FANNIE flow: 2 PROCEDURE: Drug Eluting Stent with pre and post dilatation Post Stenosis: 80 % Post intervention FANNIE flow: 3 Lesion Devices: Vascular Solutions 6 Stateless GuideLiner Terumo .014 180cm Runthrough Extra Floppy straight Javad Sci EMERGE MR 3.00x15 BALLOON Javad Sci EMERGE MR 2.00x12 BALLOON Javad Sci NC EMERGE MR 2.75x12 BALLOON LESION SITE: 1st OM (Mid) Lesion Complexity: High/C, chronic total occlusion: No, lesion at bifurcation: No, thrombus present: No, lesion length: 12 mm, culprit lesion: Yes, Previously treated lesion: Yes, Timeframe of previous treatment: Time unknown, In-stent restenosis: Yes Pre Stenosis: 90 % Pre intervention FANNIE flow: 3 PROCEDURE: Balloon Angioplasty Post Stenosis: 80 % Post intervention FANNIE flow: 3 Lesion Devices: Javad Sci EMERGE MR 3.00x15 BALLOON COMPLICATIONS No Complications PROCEDURE MEDICATIONS Oxygen: 2 L/min via nasal cannula Heparin given IA 04/18/2025 09:42:35 Heparin 1000 unit(s) IV 04/18/2025 10:42:03 Verapamil 2.5mg, Ntg 100mcgs, 3000 units of Heparin given IA 04/18/2025 09:42:35 SUMMARY OF HEMODYNAMIC DATA Time AIR REST ECG 09:30:34 AO 76/56 (66) SA 09:44:16 LV 146/-79, -5 09:47:14 LV 74/9, 0 09:47:23 LV 73/12, 20 09:47:32 AO 52/36 (41) 10:29:11 AOp 50/37 (43) 10:29:18 AOp 47/36 (41) 10:32:30 AOp 98/73 (83) 10:45:28 Signed By Wesly Villaseñor MD On 04/18/2025 17:36:50 Wesly Villaseñor MD
--- NOTE | 2025-04-20 08:40 | ECQM.STEMI ---
STEMI STEMI ED Door Time / Other REG STEMI EKG Time (1) ST elevation (STEMI) myocardial infarction: Acute 04/18/25 08:50 Balloon/Aspiration Date-Time Date of Balloon/Aspiration:: 04/18/25 Time of Balloon/Aspiration:: 09:57
--- NOTE | 2025-04-28 12:15 | CRPHASE1 ---
Patient Communication Patient Information PHII Cardiac Rehab Discussed with Patient:: No (Unable to educate patient due to emergent transfer to another facility.) Guide to Cardiac Rehab Given to Patient:: No (Unable to educate patient due to emergent transfer to another facility.) Cardiac Rehab Facility Choice List Given to Patient:: No (Unable to educate patient due to emergent transfer to another facility.) Cardiac Rehabilitation Info Program Information Cardiac Rehabilitation Program Information: Cardiac Rehab The cardiac rehab team at [facility] consists of highly skilled exercise physiologists, nurses, respiratory therapists and physicians working together with you. Our purpose is to help you have a full recovery and achieve the goals you set for yourself. Over the years many of our patients have returned to activities they assumed they would never do again! We can help restore your confidence and motivation to make lifestyle changes that can have a significant impact on your health and quality of life! We can help answer questions and concerns you may have about exercise, lifestyle, medications, diet, stress and anxiety which are common following a hospitalization. WE monitor ECG and vital signs during exercise and discuss your progress with you and report to your physician(s). Cardiac Rehab is proven to help reduce readmissions, improve functional capacity and lower recurrence of problems with your heart. Our Cardiac Rehab program is Certified by the [place] Association of Cardio-Vascular and Pulmonary Rehabilitation (AACVPR) and Accredited by the [place] [employer] of [employer] through our [facility]. You can contact us at . We invite you to call us with your questions or to get started in our program. If you have other questions or concerns be sure to ask your physician/provider during your follow-up visit. WE look forward to seeing you!
--- NOTE | 2025-04-28 12:16 | CRPH1.INSTRU ---
General Education Discussed with Patient CAD and cardiac anatomy and function:: Not instructed (Unable to educate patient due to emergent transfer to another facility.) Explanation of diagnoses and procedures:: Not instructed Sign/Symptoms of DC:: Not instructed Antiplatelet therapy: Not instructed (Unable to educate patient due to emergent transfer to another facility.) Proper use of NTG-SL: Not instructed (Unable to educate patient due to emergent transfer to another facility.) Emergency procedures and activation of EMS: Not instructed (Unable to educate patient due to emergent transfer to another facility.) Compliance of all prescribed medications: Not instructed (Unable to educate patient due to emergent transfer to another facility.)
== END 2025-04-18 13:54 | disposition short-term general hospital (02) | DRG 270 ==
LOC: ED 09:19 → ICU 11:10
PROVIDERS: Admitting Provider Specialist; Emergency Provider Emergency Medicine; Referring Provider Specialist; Visit Provider Specialist
DX: I21.11 ST elevation (STEMI) myocardial infarction involving right coronary artery (principal); R57.0 Cardiogenic shock; T82.855A Stenosis of coronary artery stent, initial encounter; I97.710 Intraoperative cardiac arrest during cardiac surgery; E11.9 Type 2 diabetes mellitus without complications; I10 Essential (primary) hypertension; Z79.4 Long term (current) use of insulin; E78.5 Hyperlipidemia, unspecified; I25.10 Atherosclerotic heart disease of native coronary artery without angina pectoris; X58.XXXA Exposure to other specified factors, initial encounter; Z95.5 Presence of coronary angioplasty implant and graft; Z79.82 Long term (current) use of aspirin; Z79.84 Long term (current) use of oral hypoglycemic drugs; Z79.85 Long-term (current) use of injectable non-insulin antidiabetic drugs; Z79.899 Other long term (current) drug therapy; Z87.891 Personal history of nicotine dependence
CPT/HCPCS: 33967; 71045; 80048; 84484; 85025; 85610; 85730; 92920; 92928; 92941; 93005; 93454; 99284; C1874; C1894; Q9967; A4216; C1725; C1769; C1887; C9600; C9606; J2405